=== PATIENT | female | born 1985 | race Caucasian/White ===

== ENCOUNTER 2019-05-01 17:30 | Emergency (ER) | payer OTHER, SELFPAY ==
[2019-05-01 17:45] VITALS: BP 120/65; PULSE 79; RESP 16; TEMP 36.6
--- NOTE | 2019-05-01 17:58 | ED.ALLEREA ---
HPI - Allergic Reaction General Chief complaint: Allergic Reaction Stated complaint: Light-headed/SOB Time Seen by Provider: 05/01/19 17:50 Source: patient Mode of arrival: ambulatory Limitations: no limitations History of Present Illness HPI narrative: Ida Ortega is a 33 yo female with a PMH of anxiety, GERD, states that she was driving after child's doctor appointment and suddenly began to feel dizzy and weak. States she worked out earlier today but had protein. Took some child Benadryl in the car, states she has a scratchy throat and feels like her lips are swollen. Unknown agent Related Data Home Medications Medication Instructions Recorded Confirmed amitriptyline 25 mg tablet 25 mg PO ONCE 04/22/19 Allergies Allergy/AdvReac Type Severity Reaction Status Date / Time Cephalosporins Allergy Mild Unknown Verified 04/22/19 09:24 imipramine Allergy Mild hives & Verified 04/22/19 09:24 throat closes shellfish derived Allergy Mild Hives / Verified 04/22/19 09:24 Red Face albuterol Allergy Unknown HIVES AND Verified 04/22/19 09:24 THROAT SWELLING cefuroxime Allergy Unknown NAUSEA/DIZZ Verified 04/22/19 09:24 INESS Sulfa (Sulfonamide Allergy Unknown Unknown Verified 04/22/19 09:24 Antibiotics) METOCLOPRAMIDE HCL Allergy Intermediate Hives / Uncoded 04/22/19 09:24 Red Face PROMETHAZINE HCL Allergy Intermediate Hives / Uncoded 04/22/19 09:24 Red Face Review of Systems Review of Systems: Narrative: CONSTITUTIONAL: Denies fever, chills, sweats. Weakness, feels mouth lips are swollen EYES: Denies visual changes, redness, discharge. ENT: Denies rhinorrhea, congestion, sore throat, otalgia. CARDIOVASCULAR: Denies chest pain, palpitations, edema. RESPIRATORY: Denies dyspnea, wheezing, cough GASTROINTESTINAL: Denies abdominal pain, nausea, vomiting, diarrhea. GENITOURINARY: Denies dysuria, hematuria, abnormal discharge SKIN: Denies rash or itching. MUSCULOSKELETAL: Denies acute back pain, joint pain, or myalgia. NEUROLOGIC: Denies numbness, or focal weakness. PSYCHIATRIC: Denies anxiety or depression. [facility] Family History Family History Grandparent Hypertension Cerebrovascular accident Family history of lung cancer Family history of heart disease in male family member before age 55 Social History Social History Smoking status: Former smoker Second hand tobacco smoke exposure: No Alcohol intake: never Comments At time of signature, I agree with nursing past medical, surgical, social and family history. There is no relevant family history pertinent to the presenting complaint. Exam Narrative: Exam Narrative: GENERAL: This is a well-nourished, well-developed patient, in moderate distress. HEAD: normocephalic, atraumatic. EYES: PERRL. Sclera clear/white. Vision is grossly intact. EARS: External ears normal, auditory canals clear and without drainage, TMs normal without perforation. Hearing grossly intact. NOSE: External nose normal with no obvious nasal discharge, nares without redness, no rhinorrhea. THROAT: Mucous membranes moist, posterior pharynx clear. NECK: Neck supple, non-tender without lymphadenopathy, masses or thyromegaly. CARDIOVASCULAR: Regular rate and rhythm without murmurs, gallops, or rubs. RESPIRATORY: Clear to auscultation. Breath sounds equal bilaterally. No wheezes, rales, or rhonchi. GASTROINTESTINAL: Abdomen soft, non-tender, nondistended. SKIN: warm, intact with no suspicious lesions or rash, good texture and turgor. NEURO: awake, alert, and oriented to person, place and time. There were no obvious focal neurologic abnormalities. Steady gait Neurologically intact EXTREMITIES: Normal range of motion. No edema. No calf tenderness. Negative Homans sign bilaterally. BACK: Nontender without deformity or crepitance. Course Cou
[2019-05-01 18:03] LABS: Glucose Point of Care 85 (65-105)
[2019-05-01] MEDS: predniSONE 20 MG TABLET 40 MG PO (18:03)
== END 2019-05-01 19:03 | disposition home or self-care (01) ==
PROVIDERS: Emergency Provider Nurse Practitioner; PCP Family Medicine
DX: R06.02 Shortness of breath (principal); R42 Dizziness and giddiness; R22.0 Localized swelling, mass and lump, head; T78.40XA Allergy, unspecified, initial encounter; Z87.891 Personal history of nicotine dependence
CPT/HCPCS: 81003; 82948; 99213; G0463; J7512

== ENCOUNTER 2019-09-10 13:36 | Outpatient (CLI) | payer OTHER, SELFPAY ==
[2019-09-10 14:05] LABS: Hematocrit 37.9 % (37.0-47.0); Hemoglobin 12.1 g/dL (12.0-15.0); Mean Corpuscular HGB Conc 31.9 g/dl (32-36); Mean Corpuscular Hemoglobin 30.3 pg (26-34); Mean Corpuscular Volume 94.8 fl (80-100); Mean Platelet Volume 9.5 fl (7.4-10.4); Platelet Count Result 237 k/mm3 (150-375); White Blood Count 5.3 K/mm3 (4.5-10.0)
[2019-09-10 14:19] LABS: Blood Urea Nitrogen 12 mg/dL (7-17); Calcium 9.3 mg/dL (8.4-10.2); Carbon Dioxide 29 mmol/L (22-30); Chloride 102 mmol/L (98-107); Estimated Glomerular Filt Rate > 60; Glucose 95 mg/dL (65-105); Potassium 4.4 mmol/L (3.4-5.0); Sodium 137 mmol/L (137-145)
[2019-09-10 14:32] LABS: Iron 37 ug/dL (37-170)
[2019-09-10 14:41] LABS: Percent Iron Saturation 10 % (20-50)
== END 2019-09-10 13:37 | disposition home or self-care (01) ==
PROVIDERS: PCP Family Medicine; Visit Provider Physician Assistant Medical
DX: E61.1 Iron deficiency (principal)
CPT/HCPCS: 36415; 80048; 83540; 83550; 85027

== ENCOUNTER 2021-09-01 09:41 | Emergency (ER) | payer MEDICAID, SELFPAY ==
[2021-09-01] VITALS (19 sets, daily range): BP systolic 95–140; BP diastolic 60–93; PULSE 78–96; RESP 12–29; O2SAT 95–100
--- NOTE | ~2021-09-01 | XR_ITS ---
EXAMINATION: XR chest 1V portable DATE: 09/01/2021 11:59 INDICATION: Shortness of breath. Chest tightness. TECHNIQUE: A single frontal view of the chest was obtained. COMPARISON: Chest 2 views 08/08/2018 FINDINGS: The chest demonstrates clear lungs without pneumonia, pleural effusion, or pneumothorax. Th e heart size is normal. IMPRESSION: 1. No acute cardiopulmonary disease. Reviewed, dictated and finalized at location A.
--- NOTE | 2021-09-01 10:03 | ED.DIZZY ---
HPI - Dizziness General Chief Complaint: Dizziness Stated Complaint: not feeling well UTI? Time Seen by Provider: 09/01/21 09:45 Source: patient Mode of arrival: ambulatory Limitations: no limitations History of Present Illness HPI Narrative: 35-year-old female with history of aplastic anemia presents today with complaints of not feeling well for 2 days. Patient endorses sore throat, chills, sweats, body aches, back pain, dizziness, shortness of breath, nausea, vomiting x1, more frequent urination. Patient unsure if she has a fever at home but has been taking ibuprofen 40 mg every 4-6 hours as needed for pain or fever. Patient denies cough, diarrhea. Related Data Home Medications Medication Instructions Recorded Confirmed amitriptyline 25 mg tablet 25 mg PO ONCE 04/22/19 Allergies Allergy/AdvReac Type Severity Reaction Status Date / Time Cephalosporins Allergy Mild Unknown Verified 09/07/19 17:07 imipramine Allergy Mild hives & Verified 09/07/19 17:07 throat closes shellfish derived Allergy Mild Hives / Verified 09/07/19 17:07 Red Face albuterol Allergy Unknown HIVES AND Verified 09/07/19 17:07 THROAT SWELLING cefuroxime Allergy Unknown NAUSEA/DIZZ Verified 09/07/19 17:07 INESS Sulfa (Sulfonamide Allergy Unknown Unknown Verified 09/07/19 17:07 Antibiotics) METOCLOPRAMIDE HCL Allergy Intermediate Hives / Uncoded 09/07/19 17:07 Red Face PROMETHAZINE HCL Allergy Intermediate Hives / Uncoded 09/07/19 17:07 Red Face Review of Systems Review of Systems: CONSTITUTIONAL: Unsure of fever. Endorses chills and sweats and weakness EYES: Denies visual changes, redness, or discharge. ENT: Congestion and sore throat. Denies rhinorrhea or otalgia. CARDIOVASCULAR: Denies chest pain, palpitations, or edema. RESPIRATORY: Shortness of breath. Denies dyspnea. GASTROINTESTINAL: Denies abdominal pain, nausea, vomiting, or diarrhea. GENITOURINARY: More frequent urination. Denies dysuria or hematuria. SKIN: Denies rash or itching. MUSCULOSKELETAL: Denies back pain, joint pain, or myalgia. NEUROLOGIC: Weakness. Denies headache. PSYCHIATRIC: Denies anxiety or depression. [facility] Family History Family History Grandparent Hypertension Cerebrovascular accident Family history of lung cancer Family history of heart disease in male family member before age 55 Social History Social History Smoking status: Former smoker Second hand tobacco smoke exposure: No Alcohol intake: never Exam Narrative: GENERAL: ill-appearing, well-nourished, and in no acute distress. HEAD: Normocephalic, atraumatic. EYES: PERRLA and EOMI. ENT: Nares clear, no rhinorrhea or epistaxis. Mucous membranes moist. Oropharynx without tonsillar hypertrophy exudate or other lesions. Bilateral TMs pearly charles nonbulging NECK: Supple. No adenopathy or masses. No carotid bruits or JVD CHEST: Clear to auscultation. No respiratory distress. No wheezes rales or rhonchi HEART: Regular rate and rhythm. No murmur heard. Normal peripheral pulses. ABDOMEN: Soft, nontender, nondistended, normal active bowel sounds. EXTREMITIES: Normal range of motion. No edema. SKIN: Warm, dry, no rash. NEURO: No focal deficits. Alert and oriented x3. PSYCH: Normal mood and affect. Course Course Emergency Course: Patient with minimal improvement after medications. Patient is aware of labs and x-ray. Patient aware of positive COVID status. Patient was concerned of anemia but her hemoglobin is 11.1 at current time. Patient instructed to isolate per CDC guidelines and return with any new or worsening symptoms. Vital Signs Vital signs: Vital Signs Respiratory Rate 23 H 09/01/21 09:47 Blood Pressure 126/75 09/01/21 09:47 Pulse Oximetry 98 09/01/21 09:47 Oxygen Delivery Room Air 09/01/21 09:47 Pulse R
[2021-09-01] MEDS: SODIUM CHLORIDE 0.9% IV 1,000 ML 999 ML IV CONT (10:20)
[2021-09-01 10:22] LABS: Basophils Percent Auto 0.2 % (0.2-1.2); Eosinophils Absolute Auto 0.1 K/mm3 (0-0.3); Eosinophils Percent Auto 2.5 % (0-4.4); Hematocrit 34.7 % (37.0-47.0); Hemoglobin 11.1 g/dL (12.0-15.0); Immature Granulocyte Absolute 0.01 K/mm3 (0.00-0.031); Immature Granulocyte Percent A 0.2 % (0-0.5); Lymphocytes Percent Auto 17.3 % (18.3-44.2); Mean Corpuscular Hemoglobin 28.8 pg (26-34); Mean Corpuscular Volume 90.1 fl (80-100); Mean Platelet Volume 9.1 fl (7.4-10.4); Monocytes Absolute Auto 0.5 K/mm3 (0.1-0.6); Monocytes Percent Auto 11.4 % (2.6-8.5); Neutrophils Absolute Auto 2.8 K/mm3 (1.3-6.7); Neutrophils Percent Auto 68.4 % (45.5-73.1); Platelet Count Result 246 k/mm3 (150-375); Red Blood Count 3.85 M/mm3 (4.2-5.4); Red Cell Distribution Width 14.6 % (11.5-14.5)
--- NOTE | 2021-09-01 10:22 | PC.NURSE ---
pt unable to provide urine sample at this time. pt declining straight catheter.
[2021-09-01 10:29] LABS: Alanine Aminotransferase 14 U/L (6-35); Albumin Level 4.2 g/dL (3.5-5.1); Alkaline Phosphatase 64 U/L (38-126); Anion Gap 7 mmol/L (8-16); Aspartate Amino Transferase 23 U/L (14-36); Bilirubin,Total 0.2 mg/dL (0.2-1.3); Blood Urea Nitrogen 14 mg/dL (7-17); Calcium 8.4 mg/dL (8.4-10.2); Carbon Dioxide 26 mmol/L (22-30); Chloride 105 mmol/L (98-107); Estimated CRCL calculation 97 ml/min; Estimated Glomerular Filt Rate > 60; Glucose 86 mg/dL (65-110); Potassium 3.6 mmol/L (3.4-5.0); Sodium 138 mmol/L (137-145)
[2021-09-01 10:40] LABS: INR 1.1; Prothrombin Time 13.5 Seconds (11.1-14.7)
[2021-09-01 10:40] LABS: Appearance Urine Clear (Clear); Bilirubin Urine Negative (Negative); Blood Urine Negative (Negative); Color Urine Yellow (Yellow); Glucose Urine UA Negative (Negative); Ketones Urine Negative (Negative); Leukocyte Esterase Ur Negative LEU/UL (Negative); Nitrate Urine Negative (Negative); Protein Urine Negative (Negative); Urobilinogen Urine 0.2 mg/dL (<2.0)
[2021-09-01 10:40] LABS: Lactic Acid Reflex 0.6 mmol/L (0.7-2.0)
[2021-09-01 10:41] LABS: Partial Thromboplastin Time 34.8 SECONDS (22.3-36.8)
[2021-09-01] MEDS: KETOROLAC 30 MG/ML VIAL (*BKC) IV PUSH (10:46)
[2021-09-01 10:48] LABS: Lipase 85 U/L (23-300)
[2021-09-01 11:13] LABS: Influenza A QL RT-PCR Negative (Negative); Influenza B QL RT-PCR Negative (Negative); SARS-CoV-2 RNA PCR Positive
[2021-09-01 11:15] LABS: Add Urine Microscopic? NO
[2021-09-01] MEDS: hydrOXYzine HCL 25 MG TABLET PO (11:42)
== END 2021-09-01 13:15 | disposition home or self-care (01) ==
PROVIDERS: Emergency Provider Nurse Practitioner Family; PCP Family Medicine
DX: U07.1 COVID-19 (principal); Z87.891 Personal history of nicotine dependence
CPT/HCPCS: 36415; 71045; 80053; 81003; 81025; 83605; 83690; 85025; 85610; 85730; 86850; 86900; 86901; 87502; 96361; 96374; 99284; A9270; C9803; J1885; J7030; U0003; U0005

== ENCOUNTER 2021-09-28 15:45 | Emergency (ER) | payer OTHER, SELFPAY ==
[2021-09-28 16:13] VITALS: BP 120/76; PULSE 72; RESP 16; TEMP 36.8; O2SAT 100
--- NOTE | 2021-09-28 17:09 | ED.SKABFB ---
HPI - Skin/Abscess/Foreign Bdy General Chief complaint: Skin/Abscess/Foreign Body Stated complaint: rash Time Seen by Provider: 09/28/21 17:09 Source: patient Mode of arrival: ambulatory Limitations: no limitations History of Present Illness HPI narrative: 35 yo F presents with itchy rash to started to L elbow, scabbed and has now spread to L antecubital, fingers and itches around ankles but doesn't see the rash. Symptoms for approx. 2 wks. Went to [place] approx. 3 wks ago. Pt and her son slept in same bed and he is c/o itching to back of legs. concerned for scabies. All systems reviewed and negative except as noted above. Related Data Home Medications Medication Instructions Recorded Confirmed epinephrine 0.3 mg/0.3 mL ea 09/28/21 injection, auto-injector Allergies Allergy/AdvReac Type Severity Reaction Status Date / Time Cephalosporins Allergy Mild Unknown Verified 09/07/19 17:07 imipramine Allergy Mild hives & Verified 09/07/19 17:07 throat closes shellfish derived Allergy Mild Hives / Verified 09/07/19 17:07 Red Face albuterol Allergy Unknown HIVES AND Verified 09/07/19 17:07 THROAT SWELLING cefuroxime Allergy Unknown NAUSEA/DIZZ Verified 09/07/19 17:07 INESS Sulfa (Sulfonamide Allergy Unknown Unknown Verified 09/07/19 17:07 Antibiotics) METOCLOPRAMIDE HCL Allergy Intermediate Hives / Uncoded 09/07/19 17:07 Red Face PROMETHAZINE HCL Allergy Intermediate Hives / Uncoded 09/07/19 17:07 Red Face Review of Systems Review of Systems: CONSTITUTIONAL: Denies fever, chills, or sweats. EYES: Denies visual changes, redness, or discharge. ENT: Denies rhinorrhea, congestion, sore throat, or otalgia. CARDIOVASCULAR: Denies chest pain, palpitations, or edema. RESPIRATORY: Denies cough or dyspnea. GASTROINTESTINAL: Denies abdominal pain, nausea, vomiting, or diarrhea. GENITOURINARY: Denies dysuria or hematuria. SKIN: Reports itchy rash to left AC, fingers and hands. MUSCULOSKELETAL: Denies back pain, joint pain, or myalgia. NEUROLOGIC: Denies headache, numbness, or weakness. PSYCHIATRIC: Denies anxiety or depression. All other systems reviewed are negative, except as documented in HPI. [facility] Family History Family History Grandparent Hypertension Cerebrovascular accident Family history of lung cancer Family history of heart disease in male family member before age 55 Social History Social History Smoking status: Former smoker Second hand tobacco smoke exposure: No Alcohol intake: never Comments At time of signature, agree with nursing past medical, surgical, social and family history. There is no relevant family history pertinent to the presenting complaint. Exam Narrative: GENERAL: This is a well-nourished, well-developed patient, in no apparent distress. HEAD: normocephalic, atraumatic. EYES: PERRL. Sclera clear/white. Vision is grossly intact. EARS: External ears normal NOSE: External nose normal NECK: Neck supple, non-tender without lymphadenopathy, masses or thyromegaly. CARDIOVASCULAR: Regular rate and rhythm without murmurs, gallops, or rubs. RESPIRATORY: Clear to auscultation. Breath sounds equal bilaterally. No wheezes, rales, or rhonchi. SKIN: warm, Dry, intact with no suspicious lesions. erythematous papular/vesicular rash to L AC, webbing of fingers. some area linear in appearance. NEURO: awake, alert, and oriented to person, place and time. There were no obvious focal neurologic abnormalities. EXTREMITIES: No joint tenderness, effusion, or edema noted. Course Course Level of Care: Express Care Visit Vital Signs Vital signs: Vital Signs Temperature 36.8 C 09/28/21 16:13 Pulse Rate 72 09/28/21 16:13 Respiratory Rate 16 09/28/21 16:13 Blood Pressure 120/76 09/28/21 16:13 Pulse Oximetry 100 09/28/21 16:13
== END 2021-09-28 17:24 | disposition home or self-care (01) ==
PROVIDERS: Emergency Provider Nurse Practitioner Family
DX: B86 Scabies (principal); Z87.891 Personal history of nicotine dependence
CPT/HCPCS: 99213; G0463

== ENCOUNTER 2021-11-15 15:36 | Outpatient (CLI) | payer OTHER, SELFPAY ==
--- NOTE | ~2021-11-15 | XR_ITS ---
EXAM: XR knee RT 3V DATE: 11/15/2021 16:08 HISTORY: FALL X 4 DAYS AGO. PAIN TO ANTERIOR RT KNEE . COMPARISON: None available. FINDINGS: Mildly decreased mineralization. No fracture or dislocation. No lytic or blastic lesion. M ild medial joint space narrowing. No erosion or periosteal change. Soft tissues within normal limits. Small volume knee joint fluid. IMPRESSION: No acute osseous finding in the right knee. Reviewed, dictated and finalized at location K.
--- NOTE | ~2021-11-15 | XR_ITS ---
EXAM: XR ankle RT min 3V DATE: 11/15/2021 16:10 HISTORY: FALL X 4 DAYS AGO AND TWISTED ANKLE. PAIN ANTERIOR/LATERAL . COMPARISON: None available. FINDINGS: Normal mineralization. No fracture or dislocation. No lytic or blastic lesion. Joint space s are maintained. No erosion or periosteal change. Soft tissues within normal limits. IMPRESSION: Normal right ankle radiograph findings. Reviewed, dictated and finalized at location K.
== END 2021-11-15 15:37 | disposition home or self-care (01) ==
PROVIDERS: PCP Family Medicine; Visit Provider Nurse Practitioner Family
DX: S99.911A Unspecified injury of right ankle, initial encounter (principal); M25.571 Pain in right ankle and joints of right foot; M25.561 Pain in right knee
CPT/HCPCS: 73562; 73610

== ENCOUNTER 2022-01-23 09:59 | Outpatient (CLI) | payer OTHER, SELFPAY ==
--- NOTE | ~2022-01-23 | XR_ITS ---
EXAMINATION: XR thoracic spine 2V DATE: 01/23/2022 10:25 INDICATION: Scoliosis. Bilateral rib pain. TECHNIQUE: 2 views of thoracic spine were obtained. COMPARISON: None. FINDINGS: There is 16 degrees dextroscoliosis of thoracic spine. Partially visualized in cervicothora cic levoscoliosis. Vertebral body heights are normal. There are endplate osteophytes at multiple leve ls in mid thoracic spine. Intervertebral disc heights are normal. IMPRESSION: 1. Mild thoracic spondylosis. 2. Scoliosis. Reviewed, dictated and finalized at location A.
--- NOTE | ~2022-01-23 | XR_ITS ---
EXAMINATION: XR lumbar spine 2-3V DATE: 01/23/2022 10:26 INDICATION: Scoliosis. TECHNIQUE: 3 views of lumbar spine were obtained. COMPARISON: None. FINDINGS: Bone alignment is normal. Vertebral body heights are normal. There is mildly decreased disc height at L4-L5. The facet joints are unremarkable. IMPRESSION: 1. Mild degenerative disc disease at L4-L5. Reviewed, dictated and finalized at location A.
--- NOTE | ~2022-01-23 | XR_ITS ---
EXAMINATION: XR_CERV2-3V_CR DATE: 01/23/2022 10:25 INDICATION: Migraine, unspecified, not intractable, without status migrainosus. TECHNIQUE: 3 views of cervical spine were obtained. COMPARISON: Cervical spine radiographs 11/02/2016 FINDINGS: There is 15 degrees levoscoliosis of cervicothoracic spine. Vertebral body heights are norm al. There is moderately decreased disc height at C3-C4 and C5-C6 and mildly decreased disc height at C6-C7. At C5-C6, there is severe left uncovertebral joint osteoarthritis. The facet joints are unrema rkable. There is mild central canal stenosis at C3-C4 and C5-C6. No prevertebral soft tissue swelling . IMPRESSION: 1. Moderate cervical spondylosis. 2. Cervicothoracic levoscoliosis. Reviewed, dictated and finalized at location A.
[2022-01-23 10:55] LABS: Anion Gap 11 mmol/L (8-16); Blood Urea Nitrogen 20 mg/dL (7-17); Calcium 8.7 mg/dL (8.4-10.2); Carbon Dioxide 25 mmol/L (22-30); Chloride 103 mmol/L (98-107); Estimated Glomerular Filt Rate 46; Glucose 86 mg/dL (65-110); Sodium 139 mmol/L (137-145)
== END 2022-01-23 10:00 | disposition home or self-care (01) ==
PROVIDERS: PCP Family Medicine; Visit Provider Nurse Practitioner Family
DX: M54.9 Dorsalgia, unspecified (principal); G43.909 Migraine, unspecified, not intractable, without status migrainosus; Z86.39 Personal history of other endocrine, nutritional and metabolic disease; M51.36 Other intervertebral disc degeneration, lumbar region; M47.894 Other spondylosis, thoracic region; M41.9 Scoliosis, unspecified; M47.892 Other spondylosis, cervical region
CPT/HCPCS: 36415; 72040; 72070; 72100; 80048; 83735

== ENCOUNTER 2022-04-11 09:02 | Outpatient (CLI) | payer OTHER, SELFPAY ==
[2022-04-11 09:50] LABS: Hematocrit 37.3 % (37.0-47.0); Hemoglobin 11.9 g/dL (12.0-15.0); Mean Corpuscular HGB Conc 31.9 g/dl (32-36); Mean Corpuscular Volume 87.8 fl (80-100); Mean Platelet Volume 9.6 fl (7.4-10.4); Platelet Count Result 245 k/mm3 (150-375); Red Blood Count 4.25 M/mm3 (4.2-5.4); Red Cell Distribution Width 14.6 % (11.5-14.5); White Blood Count 4.6 K/mm3 (4.5-10.0)
[2022-04-11 10:02] LABS: Alanine Aminotransferase 15 U/L (6-35); Albumin Level 4.5 g/dL (3.5-5.1); Alkaline Phosphatase 59 U/L (38-126); Anion Gap 8 mmol/L (8-16); Aspartate Amino Transferase 20 U/L (14-36); Bilirubin,Total 0.4 mg/dL (0.2-1.3); Blood Urea Nitrogen 14 mg/dL (7-17); Carbon Dioxide 25 mmol/L (22-30); Chloride 106 mmol/L (98-107); Cholesterol 171 mg/dL (0-200); Estimated Glomerular Filt Rate > 60; Glucose 83 mg/dL (65-110); HDL Direct 51 mg/dL; Potassium 4.1 mmol/L (3.4-5.0); Sodium 139 mmol/L (137-145); Triglycerides 75 mg/dL (<150)
[2022-04-11 10:05] LABS: Iron 35 ug/dL (37-170)
[2022-04-11 10:13] LABS: LDL Cholesterol Direct 89 mg/dL
[2022-04-11 10:16] LABS: Percent Iron Saturation 8 % (20-50)
[2022-04-11 10:40] LABS: Ferritin 7.14 ng/mL (6.24-137)
[2022-04-15 10:53] LABS: Lead, Blood <1.0 mcg/dL (<3.5)
[2022-04-19 15:28] LABS: Collection Sample Venous
== END 2022-04-11 09:03 | disposition home or self-care (01) ==
LOC: ANHLAB 09:05
PROVIDERS: PCP Family Medicine; Referring Provider Nurse Practitioner Family; Visit Provider Nurse Practitioner Family
DX: E61.1 Iron deficiency (principal); Z83.2 Family history of diseases of the blood and blood-forming organs and certain disorders involving the immune mechanism; N28.9 Disorder of kidney and ureter, unspecified; Z13.220 Encounter for screening for lipoid disorders; D64.9 Anemia, unspecified; Z77.011 Contact with and (suspected) exposure to lead
CPT/HCPCS: 36415; 80048; 80061; 80076; 82607; 82728; 83540; 83550; 83655; 84443; 85027

== ENCOUNTER 2022-04-16 17:52 | Emergency (ER) | payer OTHER, SELFPAY ==
[2022-04-16 18:10] VITALS: BP 118/72; PULSE 98; RESP 16; TEMP 36.7; O2SAT 99
--- NOTE | 2022-04-16 18:37 | ED.FEMALEGU ---
HPI - Female Genitourinary General Chief complaint: Urogenital-Female Stated complaint: Possible UTI,Sore Throat,Cough Time Seen by Provider: 04/16/22 18:21 Source: patient Mode of arrival: ambulatory Limitations: no limitations History of Present Illness HPI Narrative: Patient presents today complaining of a 2.5 week history of dysuria, pelvic pain with a 10 day history of malodorous white discharge. She has tried cranberry pills, boric acid, tea tree oral, vaginal so without relief. States she does still have occasional contact with a boyfriend who has given her chlamydia several times in the past and believes she may have it again. She also has had a sore throat for the last couple of days and believes it may be related. Denies congestion, cough, fever. Related Data Allergies Allergy/AdvReac Type Severity Reaction Status Date / Time imipramine AdvReac Severe hives & Verified 04/16/22 18:38 throat closes venom-wasp AdvReac Severe Anaphylactic Verified 04/16/22 18:38 Shock albuterol AdvReac Intermediate HIVES AND Verified 04/16/22 18:38 THROAT SWELLING cefuroxime AdvReac Intermediate NAUSEA/DIZZ Verified 04/16/22 18:38 INESS shellfish derived AdvReac Intermediate Hives / Verified 04/16/22 18:38 Red Face Sulfa (Sulfonamide AdvReac Intermediate Hives Verified 04/16/22 18:38 Antibiotics) METOCLOPRAMIDE HCL AdvReac Intermediate Hives / Uncoded 04/16/22 18:38 Red Face PROMETHAZINE HCL AdvReac Intermediate Hives / Uncoded 04/16/22 18:38 Red Face Review of Systems Review of Systems: CONSTITUTIONAL: Denies body aches, fever, chills, or sweats. EYES: Denies visual changes, redness, or discharge. ENT: Denies rhinorrhea, congestion, or otalgia.+ sore throat CARDIOVASCULAR: Denies chest pain, palpitations, or edema. RESPIRATORY: Denies cough or dyspnea. GASTROINTESTINAL: Denies abdominal pain, nausea, vomiting, or diarrhea. GENITOURINARY: + dysuria, pelvic pain, vaginal discharge. SKIN: Denies rash, itching, or wounds. MUSCULOSKELETAL: Denies back pain, joint pain, or myalgia. NEUROLOGIC: Denies headache, numbness, tingling, or weakness. PSYCH: Denies depression or anxiety. 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 Please see nursing chart for further information. There is no relevant family history pertinent to the presenting complaint Exam Narrative: GENERAL: Well-appearing, well-nourished, and in no acute distress. HEAD: Normocephalic, atraumatic. EYES: EOMI. No redness or drainage. Conjunctivae normal. ENT: Mucous membranes pink and moist. Nares clear. No rhinorrhea. TMs normal bilaterally. Throat normal. Uvula midline. NECK: Normal AROM. Supple. No lymphadenopathy. CHEST: No respiratory distress. Clear to auscultation. HEART: Regular rate and rhythm. No murmur appreciated. Normal peripheral pulses. ABDOMEN: Soft, nontender, nondistended, normal active kassidy
[2022-04-16] MEDS: cefTRIAXone 500 MG, LIDOCAINE HCL 1% LOCAL INJ 1 ML IM (18:44)
== END 2022-04-16 19:05 | disposition home or self-care (01) ==
PROVIDERS: Emergency Provider Nurse Practitioner; PCP Family Medicine
DX: N89.8 Other specified noninflammatory disorders of vagina (principal); Z87.891 Personal history of nicotine dependence
CPT/HCPCS: 81003; 87086; 87088; 87491; 87591; 87661; 87808; 96372; 99214; G0463; J0696

== ENCOUNTER 2022-04-24 11:33 | Emergency (ER) | payer OTHER, SELFPAY ==
--- NOTE | 2022-04-24 11:48 | ED.URI ---
HPI - URI/Sore Throat General Chief Complaint: Upper Respiratory Infection Stated Complaint: cold symptoms,bilateral ear pain Time Seen by Provider: 04/24/22 11:49 Source: patient, RN notes reviewed and old records reviewed Mode of arrival: ambulatory Limitations: no limitations History of Present Illness HPI Narrative: 36 year old female accompanied by son with complaints of bilateral ear pain, cough with some headache, fatigue, body aches and both ears feel clogged. and sinus drainage for the past 5 days, fever 99.8 F, home COVID test reported to be negative. Patient reports that she has been taking Ibuprofen for her symptoms, highest temperature noted to be 99.8F. Patient report she has had COVID vaccinations and also flu shot. MD elicited complaint: cough and sore throat Onset (ago): day(s) (5-6 days) Treatments prior to arrival: ibuprofen Related Data Home Medications Medication Instructions Recorded Confirmed escitalopram oxalate 5 mg tablet 5 mg PO DAILY 04/24/22 04/24/22 Allergies Allergy/AdvReac Type Severity Reaction Status Date / Time imipramine AdvReac Severe hives & Verified 04/24/22 11:41 throat closes venom-wasp AdvReac Severe Anaphylactic Verified 04/24/22 11:41 Shock albuterol AdvReac Intermediate HIVES AND Verified 04/24/22 11:41 THROAT SWELLING cefuroxime AdvReac Intermediate NAUSEA/DIZZ Verified 04/24/22 11:41 INESS shellfish derived AdvReac Intermediate Hives / Verified 04/24/22 11:41 Red Face Sulfa (Sulfonamide AdvReac Intermediate Hives Verified 04/24/22 11:41 Antibiotics) METOCLOPRAMIDE HCL AdvReac Intermediate Hives / Uncoded 04/24/22 11:41 Red Face PROMETHAZINE HCL AdvReac Intermediate Hives / Uncoded 04/24/22 11:41 Red Face Review of Systems Review of Systems: CONSTITUTIONAL: Reports malaise, chills, sweats, or fever. EYES: Denies visual changes, redness, or discharge. ENT: Reports rhinorrhea, congestion, sinus pain, otalgia and sore throat. CARDIOVASCULAR: Denies chest pain, palpitations, or edema. RESPIRATORY: Reports cough.? Denies dyspnea. GASTROINTESTINAL: Denies abdominal pain, nausea, vomiting, diarrhea SKIN: Denies rash or itching. MUSCULOSKELETAL: Reports myalgia. NEUROLOGIC: Reports headache. All systems reviewed & are unremarkable except as noted in HPI and below PMFSH Past Medical History Medical History BMI 24.0-24.9, adult BMI 25.0-25.9,adult Family History Family History Grandparent Hypertension Cerebrovascular accident Family history of lung cancer Family history of heart disease in male family member before age 55 Father Hyperlipidemia Mother Heart disease Hypertension Sibling Heart disease Social History Social History Smoking status: Former smoker Second hand tobacco smoke exposure: No Alcohol intake: never Substance use: never Substance use type: does not use Living arrangements: with family Occupation/Education: 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 There is no relevant family history pertinent to the presenting complaint Exam Narrative: GENERAL: Well-appearing, well-nourished, and in no acute distress. HEAD: Normocephalic EYES: PERRLA, conjunctivae clear ENT: Nares clear, turbinates edematous and erythematous, clear discharge. Mucous membranes moist. TM pearly charles with dull light reflex bilaterally; no tragal tenderness. Oropharynx erythematous without lesions. Tonsils not enlarged and without exudate, no drooling, no hoarseness, no trismus, uvula midline.SAO2 98% on room air NECK: Supple. No lym
[2022-04-24 11:56] VITALS: BP 105/69; PULSE 96; RESP 18; TEMP 36.3; O2SAT 98
== END 2022-04-24 12:56 | disposition home or self-care (01) ==
PROVIDERS: Emergency Provider Registered Nurse; PCP Family Medicine
DX: J40 Bronchitis, not specified as acute or chronic (principal); J32.9 Chronic sinusitis, unspecified; Z87.891 Personal history of nicotine dependence
CPT/HCPCS: 87804; 99213; G0463

== ENCOUNTER 2022-05-22 17:51 | Emergency (ER) | payer OTHER, SELFPAY ==
[2022-05-22 18:21] VITALS: BP 114/68; PULSE 101; RESP 16; TEMP 36.8; O2SAT 100
--- NOTE | 2022-05-22 19:03 | ED.URI ---
HPI - URI/Sore Throat General Chief Complaint: Upper Respiratory Infection Stated Complaint: congestion,cough Time Seen by Provider: 05/22/22 19:03 Source: patient Mode of arrival: ambulatory Limitations: no limitations History of Present Illness HPI Narrative: 36 year old female presents to [facility] care with long list of various complaints this evening including concern for post exposure prophylaxis for possible HIV exposure from condom breaking about 12 hours ago.Patient reports continued cough with green mucous, body aches, sore throat, nausea, fatigue, knee pain, back pain, headache reports migraine since Saturday Patient states that maybe her iron level is low has had problems with anemia in past and is fatigued. Patient reports that she has been taking Ibuprofen.Patient was treated at end of March for bronchitis with antibiotic steroids and inhaler given. MD elicited complaint: cough, sore throat and other (numerous complaints) Pertinent past history: other (bronchitis) Onset (ago): week(s) (3) Pain scale (0-10): 9 Description of mucous: green Able to tolerate fluids by mouth: Yes Associated symptoms: myalgias, headache, rhinorrhea, nasal congestion, sore throat, cough and nausea Treatments prior to arrival: ibuprofen and other (inhaler and had antibiotic and steroid) Related Data Home Medications Medication Instructions Recorded Confirmed epinephrine 0.3 mg/0.3 mL 0.3 mg IM ONCE PRN Anaphylaxis 05/22/22 05/22/22 injection, auto-injector Allergies Allergy/AdvReac Type Severity Reaction Status Date / Time imipramine AdvReac Severe hives & Verified 05/22/22 18:10 throat closes venom-wasp AdvReac Severe Anaphylactic Verified 05/22/22 18:10 Shock albuterol AdvReac Intermediate HIVES AND Verified 05/22/22 18:10 THROAT SWELLING cefuroxime AdvReac Intermediate NAUSEA/DIZZ Verified 05/22/22 18:10 INESS shellfish derived AdvReac Intermediate Hives / Verified 05/22/22 18:10 Red Face Sulfa (Sulfonamide AdvReac Mild Hives Verified 05/22/22 18:10 Antibiotics) METOCLOPRAMIDE HCL AdvReac Intermediate Hives / Uncoded 05/22/22 18:10 Red Face PROMETHAZINE HCL AdvReac Intermediate Hives / Uncoded 05/22/22 18:10 Red Face Review of Systems Review of Systems: CONSTITUTIONAL: Denies fever, chills, or sweats. EYES: Denies visual changes, redness, or discharge. ENT: reports rhinorrhea, congestion, sore throat, no otalgia. CARDIOVASCULAR: Denies chest pain, palpitations, or edema. RESPIRATORY: Reports productive cough, no dyspnea. GASTROINTESTINAL: Denies abdominal pain,states nausea, no vomiting, or diarrhea. GENITOURINARY: Denies dysuria or hematuria. SKIN: Denies rash or itching. MUSCULOSKELETAL: reports back pain, knee pain, and myalgia. NEUROLOGIC: reports headache,no numbness, or weakness.states fatigue PSYCHIATRIC: Reports anxiety or depression. states concern over possible HIV exposure All systems reviewed & are unremarkable except as noted in HPI and below PMFSH Past Medical History Medical History Anemia Anxiety and depression BMI 24.0-24.9, adult BMI 25.0-25.9,adult Fracture of fifth metacarpal bone Surgical History Surgical History (Updated 05/23/22 @ 11:12 by Arianna Urias NP) H/O breast augmentation Family History Family History Grandparent Hypertension Cerebrovascular accident Family history of lung cancer Family history of heart disease in male family member before age 55 Father Hyperlipidemia Mother Heart disease Hypertension Sibling Heart disease Social History Social History Smoking status: Former smoker Second hand tobacco smoke exposure: No Alcohol intake: never Substance use: never Substance use type: does not use Living arrangements: with family Occup
== END 2022-05-22 19:50 | disposition home or self-care (01) ==
PROVIDERS: Emergency Provider Registered Nurse; PCP Family Medicine
DX: J06.9 Acute upper respiratory infection, unspecified (principal); Z87.891 Personal history of nicotine dependence; Z20.828 Contact with and (suspected) exposure to other viral communicable diseases; Z20.822 Contact with and (suspected) exposure to COVID-19
CPT/HCPCS: 87081; 87426; 87804; 87880; 99213; C9803; G0463

== ENCOUNTER 2022-06-08 23:21 | Emergency (ER) | payer OTHER, SELFPAY ==
[2022-06-08 23:20] VITALS: BP 130/85; PULSE 97; RESP 13; TEMP 36.8; O2SAT 100
[2022-06-08] MEDS: ONDANSETRON INJ 4 MG/2 ML VIAL IV PUSH (23:37)
[2022-06-08] MEDS: SODIUM CHLORIDE 0.9% IV 1,000 ML 999 ML IV CONT (23:47)
[2022-06-08] MEDS: methylPREDNISolone SOD SUCC 125 MG VIAL IV PUSH (23:47)
[2022-06-08] MEDS: FAMOTIDINE 20 MG/2 ML VIAL IV PUSH (23:47)
--- NOTE | 2022-06-08 23:49 | ED.ALLEREA ---
HPI - Allergic Reaction General Chief complaint: Allergic Reaction <KALPANA Green Last Filed: 06/09/22 03:23> Stated complaint: allergic rx <KALPANA Geren Last Filed: 06/09/22 03:23> Source: patient, EMS and old records reviewed <KALPANA Green Last Filed: 06/09/22 03:23> Mode of arrival: EMS <KALPANA Green Last Filed: 06/09/22 03:23> Limitations: no limitations <KALPANA Green Last Filed: 06/09/22 03:23> History of Present Illness HPI narrative: Patient is a 36 y/o female who presents to the ED via EMS with c/o allergic reaction. Patient reports she patient was receiving a massage from her mother artemio and did not realize that the massage oil they were using had lavender in it. Patient has an allergy to lavender. She began feeling her lips, throat, tongue swelling. EMS was called. Patient reports she does have several other allergies and has had anaphylaxis before. She does have an EpiPen but did not have it with her. EMS administered 0.5 IM epi as well as Benadryl. Patient reports swelling has improved by the time of my evaluation. She does complain of nausea and lightheadedness currently. She does appear anxious. She denies any trouble breathing, trouble swallowing, rash or itching, vomiting, abdominal pain. <KALPANA Green Last Filed: 06/09/22 03:23> Related Data Home medications: Home Medications Medication Instructions Recorded Confirmed epinephrine 0.3 mg/0.3 mL 0.3 mg IM ONCE PRN Anaphylaxis 05/22/22 05/22/22 injection, auto-injector <KALPANA Green Last Filed: 06/09/22 03:23> Allergies/adverse reactions: Allergies Allergy/AdvReac Type Severity Reaction Status Date / Time imipramine AdvReac Severe hives & Verified 05/22/22 18:10 throat closes venom-wasp AdvReac Severe Anaphylactic Verified 05/22/22 18:10 Shock albuterol AdvReac Intermediate HIVES AND Verified 05/22/22 18:10 THROAT SWELLING cefuroxime AdvReac Intermediate NAUSEA/DIZZ Verified 05/22/22 18:10 INESS shellfish derived AdvReac Intermediate Hives / Verified 05/22/22 18:10 Red Face Sulfa (Sulfonamide AdvReac Mild Hives Verified 05/22/22 18:10 Antibiotics) lavender Allergy Severe angioedema Uncoded 06/09/22 01:49 METOCLOPRAMIDE HCL AdvReac Intermediate Hives / Uncoded 05/22/22 18:10 Red Face PROMETHAZINE HCL AdvReac Intermediate Hives / Uncoded 05/22/22 18:10 Red Face <Nina Villagomez PA-C - Last Filed: 06/09/22 03:23> Review of Systems Review of Systems: CONSTITUTIONAL: Denies fever, chills, or sweats. EYES: Denies visual changes, redness, or discharge. ENT: See HPI. CARDIOVASCULAR: Denies chest pain, palpitations, or edema. RESPIRATORY: Denies cough or dyspnea. GASTROINTESTINAL: See HPI. GENITOURINARY: Denies dysuria or hematuria. SKIN: Denies rash or itching. PSYCHIATRIC: See HPI. <Nina Villagomez PA-C - Last Filed: 06/09/22 03:23> All systems reviewed & are unremarkable except as noted in HPI and below <Nina Villagomez PA-C - Last Filed: 06/09/22 03:23> PMFSH Past Medical History Medical History: Medical History Anemia Anxiety and depression BMI 24.0-24.9, adult BMI 25.0-25.9,adult Fracture of fifth metacarpal bone <Nina Villagomez PA-C - Last Filed: 06/09/22 03:23> Surgical History Surgical History: Surgical History H/O breast augmentation <Nina Villagomez PA-C - Last Filed: 06/09/22 03:23> Family History Family History: Family History Grandparent Hypertension Cerebrovascular accident Family history of lung cancer Family history of heart disease in male family member before age 55 Father H
[2022-06-09] VITALS: BP 136/85; PULSE 95; RESP 17; O2SAT 100
--- NOTE | 2022-06-09 | ECG_ITS ---
Measurements Intervals [place] Rate: 92 P: 61 VT: 174 QRS: 27 QRSD: 87 T: 49 QT: 373 QTc: 462 Interpretive Statements SINUS RHYTHM DELAYED PRECORDIAL R/S TRANSITION BORDERLINE ST-T WAVE ABNORMALITY- ANTEROLAT/INF LEADS BASELINE ARTIFACT- V5 BORDERLINE ECG COMPARED TO ECG 08/10/2018 03:51:05 SINUS RHYTHM NOW PRESENT Electronically Signed On 06-09-2022 8:09:14 CDT by Hans Owens D.O.
[2022-06-09 00:51] LABS: Basophils Percent Auto 0.3 % (0.2-1.2); Eosinophils Absolute Auto 0.1 K/mm3 (0-0.3); Eosinophils Percent Auto 1.2 % (0-4.4); Hematocrit 32.4 % (37.0-47.0); Immature Granulocyte Absolute 0.05 K/mm3 (0.00-0.031); Immature Granulocyte Percent A 0.5 % (0-0.5); Lymphocytes Absolute Auto 2.54 K/mm3 (0.9-3.2); Lymphocytes Percent Auto 23.2 % (18.3-44.2); Mean Corpuscular HGB Conc 30.9 g/dl (32-36); Mean Corpuscular Hemoglobin 26.5 pg (26-34); Mean Corpuscular Volume 85.7 fl (80-100); Mean Platelet Volume 9.2 fl (7.4-10.4); Monocytes Absolute Auto 0.7 K/mm3 (0.1-0.6); Monocytes Percent Auto 6.3 % (2.6-8.5); Neutrophils Absolute Auto 7.5 K/mm3 (1.3-6.7); Neutrophils Percent Auto 68.5 % (45.5-73.1); Platelet Count Result 301 k/mm3 (150-375); Red Blood Count 3.78 M/mm3 (4.2-5.4); Red Cell Distribution Width 16.4 % (11.5-14.5)
[2022-06-09 01:20] LABS: Ethanol < 10 mg/dL (<10)
[2022-06-09 01:27] LABS: Alanine Aminotransferase 20 U/L (6-35); Albumin Level 4.1 g/dL (3.5-5.1); Alkaline Phosphatase 61 U/L (38-126); Anion Gap 7 mmol/L (8-16); Aspartate Amino Transferase 27 U/L (14-36); Bilirubin,Total 0.4 mg/dL (0.2-1.3); Blood Urea Nitrogen 17 mg/dL (7-17); Calcium 8.7 mg/dL (8.4-10.2); Carbon Dioxide 25 mmol/L (22-30); Chloride 108 mmol/L (98-107); Estimated CRCL calculation 100 ml/min; Estimated Glomerular Filt Rate > 60; Glucose 135 mg/dL (65-110); Potassium 3.4 mmol/L (3.4-5.0); Sodium 140 mmol/L (137-145)
[2022-06-09 01:37] LABS: Troponin I < 0.012 ng/mL (0.000-0.034)
[2022-06-09 02:42] VITALS: BP 162/85; PULSE 92; RESP 17; O2SAT 98
[2022-06-09 05:16] VITALS: BP 124/80; PULSE 80; RESP 16; O2SAT 100
== END 2022-06-09 05:16 | disposition home or self-care (01) ==
PROVIDERS: Emergency Provider Physician Assistant; PCP Family Medicine
DX: T78.2XXA Anaphylactic shock, unspecified, initial encounter (principal); D64.9 Anemia, unspecified; Z87.891 Personal history of nicotine dependence
CPT/HCPCS: 36415; 80053; 80307; 84484; 85025; 93005; 96361; 96374; 96375; 99284; J0171; J2405; J2930; J7030

== ENCOUNTER 2022-07-17 12:42 | Emergency (ER) | payer OTHER, SELFPAY ==
--- NOTE | 2022-07-17 12:50 | ED.EYEPROB ---
HPI - Eye Problem General Chief complaint: Eye Problems Stated complaint: bilateral eye irritation Time Seen by Provider: 07/17/22 12:50 Source: patient Mode of arrival: ambulatory Limitations: no limitations History of Present Illness HPI Narrative: Patient is a 36-year-old female that presents with bilateral eye burning and irritation for a week. Patient denies any discharge or matting in the morning but states they are watery. Patient has been taking [id number] allergy medication but has not used any eyedrops. Denies any congestion, sore throat, ear pain, fever, chills, cough and changes in vision. Does report seasonal allergies. Related Data Home Medications Medication Instructions Recorded Confirmed epinephrine 0.3 mg/0.3 mL 0.3 mg IM ONCE PRN Anaphylaxis 05/22/22 07/17/22 injection, auto-injector raltegravir 400 mg tablet 400 mg PO BID 06/22/22 07/17/22 (Isentress) Allergies Allergy/AdvReac Type Severity Reaction Status Date / Time imipramine AdvReac Severe hives & Verified 07/17/22 13:20 throat closes venom-wasp AdvReac Severe Anaphylactic Verified 07/17/22 13:20 Shock albuterol AdvReac Intermediate HIVES AND Verified 07/17/22 13:20 THROAT SWELLING cefuroxime AdvReac Intermediate NAUSEA/DIZZ Verified 07/17/22 13:20 INESS shellfish derived AdvReac Intermediate Hives / Verified 07/17/22 13:20 Red Face Sulfa (Sulfonamide AdvReac Mild Hives Verified 07/17/22 13:20 Antibiotics) lavender Allergy Severe angioedema Uncoded 07/17/22 13:20 METOCLOPRAMIDE HCL AdvReac Intermediate Hives / Uncoded 07/17/22 13:20 Red Face PROMETHAZINE HCL AdvReac Intermediate Hives / Uncoded 07/17/22 13:20 Red Face Review of Systems Review of Systems: All systems reviewed & are unremarkable except as noted in HPI and below Constitutional: Constitutional: Denies body ache(s), Denies fever(s), Denies headache(s), Denies malaise and Denies weakness Eyes: Eyes: Denies blurry vision, Reports eye discharge, Reports irritation, Reports itchy eyes, Denies loss of vision and Reports eye pain ENT: Denies otalgia, Denies headache(s), Denies nasal discharge, Denies sinus pain and Denies sore throat Cardiovascular: Cardiovascular: Denies chest pain, Denies irregular heart rhythm and Denies dyspnea Respiratory: Respiratory: Denies dyspnea Gastrointestinal: Gastrointestinal: Denies abdominal pain, Denies diarrhea, Denies nausea and Denies vomiting Musculoskeletal: Musculoskeletal: Denies back pain, Denies myalgias and Denies arthralgias Integumentary/Breasts: Skin/Breast: Denies pruritus and Denies rash Neurologic: Denies headache(s), Denies loss of vision and Denies weakness Psychiatric: Psychiatric: Reports no additional psychiatric complaints Allergic/Immunologic: Allergic/Immunologic: Reports itchy eyes PMFSH Past Medical History Medical History Anemia Anxiety and depression BMI 24.0-24.9, adult BMI 25.0-25.9,adult Fracture of fifth metacarpal bone Surgical History Surgical History H/O breast augmentation Family History Family History Grandparent Hypertension Cerebrovascular accident Family history of lung cancer Family history of heart disease in male family member before age 55 Father Hyperlipidemia Mother Heart disease Hypertension Sibling Heart disease Social History Social History Smoking status: Former smoker Second hand tobacco smoke exposure: No Alcohol intake: never Substance use: never Substance use type: does not use Living arrangements: with family Occupation/Education: student 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
[2022-07-17 13:10] VITALS: BP 127/79; PULSE 97; RESP 18; TEMP 37.1; O2SAT 98
== END 2022-07-17 14:16 | disposition home or self-care (01) ==
PROVIDERS: Emergency Provider Nurse Practitioner Family; PCP Family Medicine
DX: H57.13 Ocular pain, bilateral (principal); Z87.891 Personal history of nicotine dependence
CPT/HCPCS: 99211; G0463

== ENCOUNTER 2022-07-20 11:24 | Emergency (ER) | payer OTHER, SELFPAY ==
--- NOTE | ~2022-07-20 | CT_ITS ---
EXAMINATION: CT brain wo con DATE: 07/20/2022 17:32 INDICATION: Headache. Lightheadedness. TECHNIQUE: Computed tomography (CT) of the head was performed without intravenous contrast. The mA wa s adjusted according to patient size. Iterative reconstruction technique was employed. The dose-lengt h product was 605.33 mGy-cm. COMPARISON: None FINDINGS: There is no intracranial hemorrhage, acute infarction, or abnormal intracranial mass lesion . The ventricles are normal in size. The orbits are normal. The paranasal sinuses are clear. The mast oid air cells are normal. IMPRESSION: 1. Normal brain. Reviewed, dictated and finalized at location E. IMPRESSION: 1. Normal brain.
--- NOTE | ~2022-07-20 | XR_ITS ---
EXAMINATION: XR chest 1V portable DATE: 07/20/2022 17:26 INDICATION: Weakness. TECHNIQUE: A single frontal view of the chest was obtained on 2 radiographs. COMPARISON: Chest view 09/01/2021 FINDINGS: The chest demonstrates clear lungs without pneumonia, pleural effusion, or pneumothorax. Th e heart size is normal. IMPRESSION: 1. No acute cardiopulmonary disease. Reviewed, dictated and finalized at location E.
[2022-07-20 11:47] VITALS: BP 123/97; PULSE 103; RESP 20; TEMP 36.6; O2SAT 100
[2022-07-20 11:59] LABS: Basophils Percent Auto 0.2 % (0.2-1.2); Eosinophils Absolute Auto 0.2 K/mm3 (0-0.3); Eosinophils Percent Auto 2.7 % (0-4.4); Hematocrit 32.7 % (37.0-47.0); Hemoglobin 9.9 g/dL (12.0-15.0); Lymphocytes Absolute Auto 1.54 K/mm3 (0.9-3.2); Lymphocytes Percent Auto 26.1 % (18.3-44.2); Mean Corpuscular HGB Conc 30.3 g/dl (32-36); Mean Corpuscular Hemoglobin 26.1 pg (26-34); Mean Corpuscular Volume 86.3 fl (80-100); Mean Platelet Volume 9.4 fl (7.4-10.4); Monocytes Absolute Auto 0.5 K/mm3 (0.1-0.6); Monocytes Percent Auto 8.1 % (2.6-8.5); Neutrophils Absolute Auto 3.7 K/mm3 (1.3-6.7); Neutrophils Percent Auto 62.9 % (45.5-73.1); Platelet Count Result 284 k/mm3 (150-375); Red Blood Count 3.79 M/mm3 (4.2-5.4); Red Cell Distribution Width 15.2 % (11.5-14.5); White Blood Count 5.9 K/mm3 (4.5-10.0)
[2022-07-20 12:09] LABS: Alanine Aminotransferase 17 U/L (6-35); Albumin Level 4.2 g/dL (3.5-5.1); Alkaline Phosphatase 48 U/L (38-126); Anion Gap 6 mmol/L (8-16); Aspartate Amino Transferase 20 U/L (14-36); Bilirubin,Total 0.4 mg/dL (0.2-1.3); Blood Urea Nitrogen 20 mg/dL (7-17); Calcium 8.8 mg/dL (8.4-10.2); Carbon Dioxide 27 mmol/L (22-30); Chloride 104 mmol/L (98-107); Estimated CRCL calculation 88 ml/min; Estimated Glomerular Filt Rate > 60; Glucose 86 mg/dL (65-110); Potassium 4.1 mmol/L (3.4-5.0); Sodium 137 mmol/L (137-145)
[2022-07-20 12:14] LABS: Appearance Urine Clear (Clear); Bilirubin Urine Negative (Negative); Blood Urine Negative (Negative); Color Urine Yellow (Yellow); Glucose Urine UA Negative (Negative); Ketones Urine Negative (Negative); Leukocyte Esterase Ur Negative LEU/UL (Negative); Nitrate Urine Negative (Negative); Protein Urine Negative (Negative); Urobilinogen Urine 0.2 mg/dL (<2.0); pH Urine 6.5 (5.0-9.0)
[2022-07-20 12:28] LABS: Add Urine Microscopic? NO
[2022-07-20 15:52] VITALS: BP 119/70; PULSE 97; TEMP 36.5; O2SAT 100
--- NOTE | 2022-07-20 17:14 | ECG_ITS ---
Measurements Intervals [place] Rate: 90 P: 46 VT: 156 QRS: 11 QRSD: 84 T: 27 QT: 347 QTc: 426 Interpretive Statements SINUS RHYTHM NONSPECIFIC ST AND T-WAVE ABNORMALITY COMPARED TO ECG 06/09/2022 00:15:18 NO SIGNIFICANT CHANGES Electronically Signed On 07-21-2022 12:06:37 CDT by Shiraz Carrasquillo M.D.
--- NOTE | 2022-07-20 17:18 | ED.RECABL ---
HPI - Recheck/Abnormal Lab/Rx General Chief Complaint: Recheck/Abnormal Lab/Rx <Samra Norris PA-C - Last Filed: 07/20/22 19:16> Stated Complaint: Generalized fatigue hx of anemia <Samra Norris PA-C - Last Filed: 07/20/22 19:16> Time Seen by Provider: 07/20/22 16:54 <Samra Norris PA-C - Last Filed: 07/20/22 19:16> History of Present Illness HPI narrative: 36 y/o F, LMP 2 weeks ago, with a history of seizures, GERD, anemia and reports for evaluation of generalized fatigue, lightheadedness and weakness for the past week. Patient reports this is normally how she presents prior to her hemoglobin falling. She is also reporting a headache behind both of her eyes for the past week, phonophobia and photophobia. Patient reports a history of anemia needing blood transfusions. She currently takes iron supplements. Pt just moved here from [place] and saw Dr. Diez yesterday for anemia workup. Pt reports she is being worked up for beta thalassemia, however she is waiting for insurance approval to acquire more blood testing. She is hoping to begin iron infusions within the next couple of weeks. Patient reports she underwent a colonoscopy in 2019 for her anemia that was normal. She denies irregular vaginal bleeding, hematochezia, melena, hemoptysis or hematemesis. Patient also reports she was diagnosed with seizures in 2019 after undergoing a sleep study that was obtained due to inconsistent sleep and feeling off. States she never followed up with neurology and does not take any anticonvulsants. She does report in the past 1.5 weeks she has been sleeping irregularly and inconsistently, similarly to when she was diagnosed with seizures. She denies known seizures while she is awake, fever, bodies, chills, cough or congestion, sore throat, abdominal pain, urinary complaints, diarrhea, nausea, vomiting, diarrhea, focal numbness or weakness. <Samra Norris PA-C - Last Filed: 07/20/22 19:16> Related Data Home Medications: Home Medications Medication Instructions Recorded Confirmed epinephrine 0.3 mg/0.3 mL 0.3 mg IM ONCE PRN Anaphylaxis 05/22/22 07/17/22 injection, auto-injector raltegravir 400 mg tablet 400 mg PO BID 06/22/22 07/17/22 (Isentress) <Samra Norris PA-C - Last Filed: 07/20/22 19:16> Allergies/Adverse Reactions: Allergies Allergy/AdvReac Type Severity Reaction Status Date / Time imipramine AdvReac Severe hives & Verified 07/20/22 11:25 throat closes venom-wasp AdvReac Severe Anaphylactic Verified 07/20/22 11:25 Shock albuterol AdvReac Intermediate HIVES AND Verified 07/20/22 11:25 THROAT SWELLING cefuroxime AdvReac Intermediate NAUSEA/DIZZ Verified 07/20/22 11:25 INESS shellfish derived AdvReac Intermediate Hives / Verified 07/20/22 11:25 Red Face Sulfa (Sulfonamide AdvReac Mild Hives Verified 07/20/22 11:25 Antibiotics) lavender Allergy Severe angioedema Uncoded 07/20/22 11:25 METOCLOPRAMIDE HCL AdvReac Intermediate Hives / Uncoded 07/20/22 11:25 Red Face PROMETHAZINE HCL AdvReac Intermediate Hives / Uncoded 07/20/22 11:25 Red Face <Samra Norris PA-C - Last Filed: 07/20/22 19:16> Review of Systems Review of Systems: CONSTITUTIONAL: Denies fever, chills EYES: Denies redness, or discharge. ENT: Denies rhinorrhea, congestion, sore throat, or otalgia. CARDIOVASCULAR: Denies chest pain, palpitations, or edema. RESPIRATORY: Denies cough or dyspnea. GASTROINTESTINAL: Denies abdominal pain, nausea, vomiting, or diarrhea. GENITOURINARY: Denies dysuria or hematuria. SKIN: Denies rash or itching. MUSCULOSKELETAL: Denies back pain, joint pain, or myalgia. NEUROLOGIC: See HPI PSYCHIATRIC: Denies anxiety or depression. <Samra Norris PA-C - Last Filed: 07/20/22 19:16> [facility] Past Medical History Medical History: Medical History Anemia An
[2022-07-20] MEDS: KETOROLAC 15 MG/ML VIAL (*BKC) IV PUSH (17:45)
[2022-07-20] MEDS: SODIUM CHLORIDE 0.9% IV 1,000 ML 999 ML IV CONT (17:45)
[2022-07-20] MEDS: diphenhydrAMINE HCl INJ 50 MG/ML VIAL 25 MG IV PUSH (17:46)
[2022-07-20] MEDS: PROCHLORPERAZINE EDISYLATE 10 MG/2 ML VIAL IV PUSH (17:46)
[2022-07-20 18:00] VITALS: BP 103/60; PULSE 94; RESP 16; O2SAT 99
[2022-07-20 18:01] LABS: Influenza A QL RT-PCR Negative (Negative); Influenza B QL RT-PCR Negative (Negative); SARS-CoV-2 RNA PCR Negative (Negative)
[2022-07-20 18:06] LABS: Lactic Acid Reflex 0.9 mmol/L (0.7-2.0)
[2022-07-20 18:41] VITALS: BP 109/66; PULSE 84
[2022-07-20 18:42] VITALS: BP 118/72; PULSE 91
[2022-07-20 18:43] VITALS: BP 116/76; PULSE 91
== END 2022-07-20 19:25 | disposition home or self-care (01) ==
PROVIDERS: Emergency Medicine; Emergency Provider Physician Assistant; PCP Family Medicine
DX: D64.9 Anemia, unspecified (principal); R42 Dizziness and giddiness; R51.9 Headache, unspecified; Z87.891 Personal history of nicotine dependence; F41.9 Anxiety disorder, unspecified; F32.A Depression, unspecified; R94.31 Abnormal electrocardiogram [ECG] [EKG]
CPT/HCPCS: 36415; 70450; 71045; 80053; 81003; 81025; 83605; 85025; 86850; 86900; 86901; 87636; 93005; 96361; 96374; 96375; 99284; J0780; J1200; J1885; J7030

== ENCOUNTER 2022-08-03 11:37 | Outpatient (CLI) | payer OTHER, SELFPAY ==
[2022-08-03 12:08] LABS: Hematocrit 33.3 % (37.0-47.0); Hemoglobin 10.3 g/dL (12.0-15.0); Mean Corpuscular HGB Conc 30.9 g/dl (32-36); Mean Corpuscular Hemoglobin 25.8 pg (26-34); Mean Corpuscular Volume 83.5 fl (80-100); Mean Platelet Volume 8.8 fl (7.4-10.4); Platelet Count Result 279 k/mm3 (150-375); Red Blood Count 3.99 M/mm3 (4.2-5.4); White Blood Count 4.2 K/mm3 (4.5-10.0)
== END 2022-08-03 11:38 | disposition home or self-care (01) ==
PROVIDERS: PCP Family Medicine; Visit Provider Nurse Practitioner Family
DX: D64.9 Anemia, unspecified (principal)
CPT/HCPCS: 36415; 85027

== ENCOUNTER 2022-10-26 11:00 | Outpatient (RCR) | payer OTHER, SELFPAY ==
--- NOTE | 2022-10-17 12:23 | WPDONCPN ---
Progress Note: A/P (1) Iron deficiency anemia Code(s): D50.9 - Iron deficiency anemia, unspecified Status: Acute Assessment and plan: Patient with chronic hx of Iron deficiency anemia (DESTINY). She had PRBC transfusions in january- february 2021. She has seen Dr. Diez in hematology with last visit 07/19/22. At that time she was noted to have severe iron deficiency with ferritin of 3 on 07/17/22. She underwent EGD and Colonoscopy in 2020 with unremarkable exam. Not sure if H. Pylori was checked. At last visit, Dr. Diez recommended IV iron as patient was unable to tolerate oral iron. Patient was undergoing insurance (medicaid) approval of IV Iron but did not get approval. Iron deficiency was thought to be likely from menstrual bleeding although she did not report heavy menstrual cycles. Patient also has Beta Thalassemia. Most recent ferritin done 10/01/22 shows ferritin of 4. Patient is here for further management. she is not able to tolerate oral iron and need IV Iron. Will again seek insurance approval for IV Iron again. She will see Dr. Diez in 3 months. - Time Spent With Patient Total time spent is greater than 50% in coordination of care (as documented) at patient's floor/unit and/or counseling patient: 15 - 25 minutes Subjective Interval history: REASON FOR VISIT: SEVERE IRON DEFICIENCY ANEMIA LIKELY FROM MENSTRUAL BLEEDING HPI: Patient is here for follow up of Iron Deficiency Anemia (DESTINY). She has seen Dr. Diez with last visit 07/19/22. At that time she was noted to have severe iron deficiency with ferritin of 3 on 07/17/22. She underwent EGD and Colonoscopy in 2020 with unremarkable exam. Not sure if H. Pylori was checked. At last visit, Dr. Diez recommended IV iron as patient was unable to tolerate oral iron. Patient was undergoing insurance approval of IV Iron but did not get approval. Iron deficiency was thought to be likely from menstrual bleeding although she did not report heavy menstrual cycles. Patient also has Beta Thalassemia. She is here today for follow up of DESTINY. Most recent ferritin done 10/01/22 shows ferritin of 4. Patient is here for further management. Review of Systems - Review of Systems Patient reports fatigue and low energy level due to anemia. She denies hematochezia or melena. There is no hematuria. She continues to report normal menstrual cycles. Denies chest pain, dyspnea, cough or hemoptysis. there is no abdominal pain, n/v/d. There is no syncope or falls. No TIA or CVA. Exam - Constitutional no acute distress - Routine HEENT Exam Head: Present: atraumatic, normal inspection ENT: Present: mucous membranes moist - Routine Neck Exam Present: full ROM - Routine Respiratory Exam Present: CTAB - Routine Cardiovascular Exam Cardiovascular: Present: RRR, S1, S2 - Routine Extremities Exam Present: full ROM, normal inspection - Routine Back/Spine/Pelvis Exam Back/Spine: Present: full ROM - Routine Skin Exam Present: intact - Routine Neurological Exam Present: alert, oriented X3 PN: Objective Data - Labs CBC & Chem 7: 10/17/22 13:10 10/17/22 13:24
[2022-10-17 13:19] LABS: Hematocrit 32.6 % (37.0-47.0); Hemoglobin 10.1 g/dL (12.0-15.0); Mean Corpuscular Hemoglobin 25.2 pg (26-34); Mean Corpuscular Volume 81.3 fl (80-100); Mean Platelet Volume 9.3 fl (7.4-10.4); Platelet Count Result 263 k/mm3 (150-375); Red Blood Count 4.01 M/mm3 (4.2-5.4); Red Cell Distribution Width 17.7 % (11.5-14.5); White Blood Count 4.6 K/mm3 (4.5-10.0)
[2022-10-17 13:25] LABS: Blood Urea Nitrogen 12 mg/dL (8-26); Carbon Dioxide 25 mmol/L (22-30); Chloride 103 mmol/L (98-109); Estimated Glomerular Filt Rate > 60; Glucose 91 mg/dL (70-105); Ionized Calcium (POC) 1.17 mmol/L (1.11-1.31); Potassium 3.9 mmol/L (3.5-4.9); Sodium 139 mmol/L (138-146)
--- NOTE | 2022-10-23 14:25 | PHAR ---
VERBAL ORDER FROM DR CELY TOWNSEND TO SWITCH FERAHEME TO VENOFER 300MG DAILY FOR 3 DAYS WHICH WAS INSURANCES PREFERENCE.
[2022-10-26 11:07] LABS: Hemoglobin 10.1 g/dL (12.0-15.0); Mean Corpuscular HGB Conc 31.6 g/dl (32-36); Mean Corpuscular Volume 82.3 fl (80-100); Mean Platelet Volume 8.9 fl (7.4-10.4); Platelet Count Result 249 k/mm3 (150-375); Red Blood Count 3.89 M/mm3 (4.2-5.4); Red Cell Distribution Width 18.5 % (11.5-14.5); White Blood Count 4.2 K/mm3 (4.5-10.0)
[2022-10-26 11:59] VITALS: BP 123/81; PULSE 90; RESP 16; O2SAT 99
--- NOTE | 2022-10-26 12:34 | PC.NURSE ---
Patient left without iron infusion, patient did not want to take Benadryl. Patient requests taking oral iron.
== END 2022-10-29 09:51 ==
LOC: AMCINF 11:00
PROVIDERS: PCP Family Medicine; Visit Provider Internal Medicine
DX: D50.9 Iron deficiency anemia, unspecified (principal)
CPT/HCPCS: 36415; 80047; 85027; 99212; G0463; J1756; J7050

== ENCOUNTER 2023-02-20 10:43 | Outpatient (CLI) | payer OTHER, SELFPAY ==
--- NOTE | ~2023-02-20 | XR_ITS ---
EXAMINATION: XR thoracic spine 2V DATE: 02/20/2023 11:23 INDICATION: Worsening back pain. TECHNIQUE: 3 views of thoracic spine were obtained. COMPARISON: Thoracic spine radiographs 01/23/2022 FINDINGS: There is 19 degrees levoscoliosis of upper thoracic spine. There is 20 degrees dextroscolio sis of lower thoracic spine. There is mild chronic anterior wedging of 2 midthoracic vertebral bodies . There is mildly decreased disc height at multiple levels in mid thoracic spine. There are endplate osteophytes at a few levels. IMPRESSION: 1. Mild thoracic spondylosis. 2. Scoliosis. Reviewed, dictated and finalized at location A. RN TO SERVICE INSPECTOR
--- NOTE | ~2023-02-20 | XR_ITS ---
XR lumbar spine 2-3V 02/20/2023 11:23 Indication: History of scoliosis. Worsening pain. Procedure: 3 views lumbar spine Comparison: 06/30/2018 Findings: Mild levoscoliosis. There is disc narrowing at L4-5 and L5-S1. No evidence for fracture, bradley bluxation or spondylolisthesis. Pedicles intact. Sacral foramen are symmetric. Impression: 1: Mild lumbar spondylosis. Reviewed, dictated and finalized at location B. SECURITY ARCHITECT Impression: 1: Mild lumbar spondylosis.
--- NOTE | ~2023-02-20 | XR_ITS ---
XR_[id number] 02/20/2023 11:23 Indication: Worsening pain Procedure: 3 views cervical spine Comparison: 01/23/2022 Findings: There is mild levoscoliosis of the upper thoracic spine. There is uncinate hypertrophy at C 5-6. Vertebral body heights are maintained. There is disc narrowing at C3-4 and C5-6. No prevertebral soft tissue swelling. No fracture or traumatic malalignment. Impression: 1: Mild cervical spondylosis. Reviewed, dictated and finalized at location B. DER OPERATOR Impression: 1: Mild cervical spondylosis.
[2023-02-20 11:55] LABS: Hemoglobin 10.1 g/dL (12.0-15.0); Mean Corpuscular HGB Conc 30.6 g/dl (32-36); Mean Corpuscular Hemoglobin 26.6 pg (26-34); Mean Corpuscular Volume 86.8 fl (80-100); Mean Platelet Volume 9.5 fl (7.4-10.4); Platelet Count Result 255 k/mm3 (150-375); Red Cell Distribution Width 15.8 % (11.5-14.5); White Blood Count 5.1 K/mm3 (4.5-10.0)
[2023-02-20 12:12] LABS: Anion Gap 10 mmol/L (8-16); Blood Urea Nitrogen 19 mg/dL (7-17); Carbon Dioxide 24 mmol/L (22-30); Chloride 104 mmol/L (98-107); Estimated Glomerular Filt Rate > 60; Glucose 86 mg/dL (65-110); Potassium 4.4 mmol/L (3.4-5.0); Sodium 138 mmol/L (137-145)
[2023-02-20 12:55] LABS: Iron 37 ug/dL (37-170)
[2023-02-20 13:04] LABS: Percent Iron Saturation 10 % (20-50)
== END 2023-02-20 10:44 | disposition home or self-care (01) ==
PROVIDERS: PCP Family Medicine; Visit Provider Nurse Practitioner Family
DX: D64.9 Anemia, unspecified (principal); M54.9 Dorsalgia, unspecified; M54.2 Cervicalgia; M43.04 Spondylolysis, thoracic region; M41.84 Other forms of scoliosis, thoracic region; M43.02 Spondylolysis, cervical region; M43.06 Spondylolysis, lumbar region
CPT/HCPCS: 36415; 72040; 72070; 72100; 80048; 83540; 83550; 85027

== ENCOUNTER 2023-07-05 10:54 | Outpatient (CLI) | payer OTHER, SELFPAY ==
--- NOTE | ~2023-07-05 | US_ITS ---
EXAMINATION: US thyroid DATE: 07/05/2023 11:42 INDICATION: Nontoxic single thyroid nodule. TECHNIQUE: Multiple ultrasound images of the thyroid were obtained. COMPARISON: None. FINDINGS: The right thyroid lobe measures 5.4 x 1.7 x 1.9 cm. The left thyroid lobe measures 5.0 x 1.7 x 1.6 c m. In the right thyroid lobe, there is a 12 mm solid, hypoechoic, wider than tall nodule with smooth margin without echogenic foci (TI-RADS TR4). IMPRESSION: 1. Thyroid nodule. Thyroid ultrasound is recommended in one year. Reviewed, dictated and finalized at location A.
== END 2023-07-05 10:55 | disposition home or self-care (01) ==
LOC: ANHIMG 10:54
PROVIDERS: PCP Family Medicine; Visit Provider Physician Assistant
DX: E04.1 Nontoxic single thyroid nodule (principal)
CPT/HCPCS: 76536

== ENCOUNTER 2024-09-02 13:01 | Emergency (ER) | payer OTHER, SELFPAY ==
[2024-09-02 13:05] VITALS: BP 118/86; PULSE 119; RESP 16; TEMP 36.9; O2SAT 100
--- NOTE | 2024-09-02 13:07 | ED_ITS ---
HPI - Skin/Abscess/Foreign Bdy General Chief complaint: Skin/Abscess/Foreign Body Stated complaint: Rash Time Seen by Provider: 09/02/24 13:02 Source: patient Mode of arrival: ambulatory Limitations: no limitations History of Present Illness HPI narrative: Cal alvarez is a 30-year-old female patient presenting to the clinic today with complaints of a rash on her left forearm and abdomen. She reports her abdomen r phuong has improved however she still has itchy red raised rash on the left arm. Is concerned about mold exposure. Her son is in the clinic today with similar rash. Has been taking antihistamines and this has improved her some rash on her abdomen. Denies any shortness of breath or chest pain. Denies any difficulty swallowing. Related Data Allergies Allergy/AdvReac Type Severity Reaction Status Date / Time imipramine Allergy Severe hives & Verified 09/02/24 13:12 throat closes venom-wasp Allergy Severe Anaphylactic Verified 09/02/24 13:12 Shock albuterol Allergy Intermediate HIVES AND Verified 09/02/24 13:12 THROAT SWELLING lavender (Lavandula Allergy Intermediate angioedema Verified 09/02/24 13:12 angustifolia) shellfish derived Allergy Intermediate Hives / Verified 09/02/24 13:12 Red Face metoclopramide (From Reglan) Allergy Mild Hives Verified 09/02/24 13:12 promethazine (From Phenergan) Allergy Mild Hives Verified 09/02/24 13:12 Sulfa (Sulfonamide Allergy Mild Hives Verified 09/02/24 13:12 Antibiotics) acetaminophen Allergy Hives Verified 09/02/24 13:12 cefuroxime AdvReac Intermediate NAUSEA/DIZZ Verified 09/02/24 13:12 INESS ondansetron (From Zofran) AdvReac Intermediate Other Verified 09/02/24 13:12 Review of Systems Review of Systems: Pertinent positives per HPI. Patient denies any fever, chills, headache, visual changes, dizziness, cough, runny nose, sore throat, shortness of breath, chest pain, palpitations, nausea, vomiting, diarrhea, constipation, abdominal pain, or any urinary issues. PMFSH Past Medical History Medical History Anemia Fracture of fifth metacarpal bone Anxiety and depression Surgical History Surgical History H/O tubal ligation H/O LEEP H/O breast augmentation Family History Family History Grandparent Hypertension Cerebrovascular accident Family history of lung cancer Family history of heart disease in male family member before age 55 Father Hyperlipidemia Mother Heart disease Hypertension Sibling Heart disease Social History Social History Smoking status: Former smoker Second hand tobacco smoke exposure: No Alcohol intake: never Substance use: never Substance use type: does not use Lack of Transportation: No Lack of Food: Never True Current Housing: I Have Housing Concerned About Future Housing: No Difficulty Paying Gas/Electric Bills: No Difficulty Paying for Meds: No Currently Unemployed: No Education: High School Diploma/GED Difficulty w/ Childcare or Family Care: No Living arrangements: with family Occupation/Education: student 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 There is no relevant family history pertinent to the patient complaint. Exam Narrative: General: Well-developed, well nourished, in no apparent distress Head: Normocephalic, atraumatic. Cardio: Regular rate and rhythm, s1 and s2 normal, no murmur appreciated. Resp: Clear to auscultation bilaterally, no rhonchi, rales, wheezing or rubs. Integumentary: [place], warm, and dry, red, raised, itchy rash to the left forearm. Course Course Emergency Course: Portions of this record may have been created with voice recognition software. Level of Care: Express Care Visit Vital Signs Vital signs: Vital Signs Temperature 36.9 C 09/02/24 13:05 Pulse Rate 119 H 09/02/24 13:05 Respiratory Rate 16 09/02/24 13:05 Blood Pressure 118/86 09/02/24 13:05 Pulse Oximetry 100 09/02/24 13:05 Oxygen Delivery Room Air 09/02/24 13:05 Temperature 36.9 C 09/02/24 13:05 Pulse Rate 119 H 09/02/24 13:05 Respiratory Rate 16 09/02/24 13:05 Blood Pressure 118/86 09/02/24 13:05 Pulse Oximetry 100 09/02/24 13:05 Oxygen Delivery Room Air 09/02/24 13:05 Vital signs reviewed MDM - Skin/Abscess/Foreign Bdy MDM Narrative Medical decision making narrative: At the time of visit patient is resting comfortably on the exam table. Patient appears to be nontoxic. Plan: I suspect patient has dermatitis. Prescription for prednisone and triamcinolone cream was sent to the pharmacy. Supportive measures were discussed with the patient and they voiced understanding discharge instructions and agrees to treatment plan. Return precautions reviewed Differential Diagnosis Differential diagnosis: Likely abscess of skin or subcutaneous tissue, viral exanthem, dermatophytosis, urticaria, herpes zoster, allergic reaction to drug, cellulitis, eczema, insect bites, impetigo, contact dermatitis and other (Scabies) Discharge Plan Discharge Clinical Impression: Dermatitis Patient Disposition: Home Condition: Stable Instructions: Antibiotic Form, Dermatitis (ED) Additional Instructions: Apply triamcinolone cream as directed Take prednisone as directed Avoid hot showers Avoid allergic trigger Avoid scratching as this can cause a secondary infection May take Zyrtec or Claritin daily as needed for itching. Follow up with your PCP in 3-5 days if symptoms persist or sooner if they worsen Go to the Emergency Room if symptoms worsen- fever, rash spreading with treatment, shortness of breath, tongue swelling, drooling, or chest pain Patient Language: Serbian Prescriptions: New prednisone 20 mg tablet 40 mg PO DAILY 5 Days Qty: 10 0RF triamcinolone acetonide 0.1 % cream 1 applic topical BID 7 Days Qty: 30 0RF No Action sumatriptan succinate [Imitrex] 50 mg tablet See Rx Instructions PO .COMPLEX Qty: 9 2RF Rx Instructions: take 1 tab at onset of headache; if no relief may repeat 1 tab after at least 2 hrs; max = 4 tabs/24 hr PO bupropion HCl [Wellbutrin XL] 300 mg tablet extended release 24 hr 300 mg PO QAM Qty: 90 1RF clonazepam [Klonopin] 0.5 mg tablet 0.5 mg PO BID PRN (Reason: anxiety) Qty: 60 0RF Follow-up/Referrals: Patricia,Rohith Payton [Other] Time of Disposition: 13:08 Quality NIHSS Nursing Documentation ED NIHSS nursing documentation: reviewed/agree
--- OUTSIDE RECORDS SUMMARY | 2024-09-02 15:07 | XMS_ITS | Encounter Summary ---
Author Organization [facility] Address [address] [place] [address] Care Team Providers Care Roller Skate Repairer Name Role Phone Eren Wade MD Primary Care Provider [phone] Encounter Details Date Type Department Care Team (Latest Contact Info) Description 05/21/2005 Outpatient Historical HIS PATIENT IN A [facility] [place] [id number] [facility] [address] [place] [id number] MILD HYPEREMESIS-ANTEPAR (Primary Dx) Social History Tobacco Use Types Packs/Day Years Used Date Smoking Tobacco: Never Assessed Comments Unknown Sex and Gender Information Value Date Recorded Sex Assigned at Not on file Legal Sex Female 5:19 AM CASEWORK SPECIALIST Gender Identity Not on file Sexual Orientation Not on file documented as of this encounter Plan of Treatment Not on file documented as of this encounter Procedures Procedure Name Priority Date/Time Associated Diagnosis Comments CBC WITH DIFFERENTIAL Routine 05/21/2005 12:55 PM CASEWORK SPECIALIST CBC WITH DIFFERENTIAL Routine 05/21/2005 12:55 PM CASEWORK SPECIALIST BASIC METABOLIC PANEL Routine 05/21/2005 12:55 PM CASEWORK SPECIALIST documented in this encounter Results * CBC WITH DIFFERENTIAL (05/21/2005 12:55 PM CASEWORK SPECIALIST) NEUTROPHILS 70 45 - 70 % INTERFAC E SYSTEM LYMPHOCYTES 22 16 - 45 % INTERFAC E SYSTEM MONOCYTES 8 3 - 13 % INTERFACE SYSTEM EOSINOPHILS 1 0 - 7 % INTERFAC E SYSTEM BASOPHILS 0 0 - 2 % INTERFACE SYSTEM NEUTROPHIL ABSOLUTE 6.17 1.90 - 7.00 K/uL INTERFACE SYSTEM LYMPHOCYTE ABSOLUTE 1.91 0.70 - 4.50 K/uL INTERFACE SYSTEM MONOCYTE ABSOLUTE 0.71 0.10 - 1.30 K/uL INTERFACE SYSTEM EOSINOPHIL ABSOLUTE 0.06 0.00 - 0.70 K/uL INTERFACE SYSTEM BASOPHILS ABSOLUTE 0.02 0.00 - 0.20 K/uL INTERFACE SYSTEM 05/21/2005 12:5 5 PM CASEWORK SPECIALIST [facility] HEMATOLOGY ORDERABLES Final Re sult Performing Organization Address City/[facility] de Phone Number INTERFACE SYSTEM Refer to clinic/hospital department * CBC WITH DIFFERENTIAL (05/21/2005 12:55 PM CASEWORK SPECIALIST) WBC 8.9 4.0 - 9.8 K/uL INTERFACE SYSTEM RBC 4.17 3.90 - 4.90 M/uL INTERFACE SYSTEM HEMOGLOBIN 12.5 11.8 - 14.8 g/dL INTERFACE SYSTEM HEMATOCRIT 35.8 35.5 - 44.0 % INTERFACE SYSTEM MCV 85.9 82.0 - 99.0 fL INTERFACE SYSTEM MCH 30.0 27.2 - 32.6 pg INTERFACE SYSTEM MCHC 34.9 31.5 - 35.5 % INTERFACE SYSTEM RDW 14.1 11.5 - 14.5 % INTERFACE SYSTEM RDW-STDEV 44.0 37.1 - 48.7 fL INTERFACE SYSTEM PLATELETS 236 140 - 350 K/uL INTERFACE SYSTEM MPV 9.8 9.3 - 12.4 fL INTERFACE SYSTEM 05/21/2005 12:5 5 PM CASEWORK SPECIALIST [facility] HEMATOLOGY ORDERABLES Final Re sult Performing Organization Address [facility] de Phone Number INTERFACE SYSTEM Refer to clinic/hospital department * BASIC METABOLIC PANEL (05/21/2005 12:55 PM CASEWORK SPECIALIST) GLUCOSE 78 65 - 109 mg/dL INTERFACE SYSTEM CREATININE 0.7 0.4 - 1.2 mg/dL INTERFACE SYSTEM CALCIUM 9.2 8.6 - 10.2 mg/dL INTERFACE SYSTEM BUN 8 6 - 20 mg/dL INTERFACE SYSTEM SODIUM 136 135 - 145 mmol/L INTERFACE SYSTEM POTASSIUM 3.7 3.5 - 4.9 mmol/L INTERFACE SYSTEM CHLORIDE 99 96 - 108 mmol/L INTERFACE SYSTEM CO2 24 22 - 30 mmol/L INTERFACE SYSTEM 05/21/2005 12:5 5 PM CASEWORK SPECIALIST Dolly Mcfadden DO CHEMISTRY ORDERABLES Final Res ult INTERFACE SYSTEM Refer to clinic/hospital department documented in this encounter Visit Diagnoses Diagnosis Mild hyperemesis gravidarum, antepartum- Primary documented in this encounter Additional Health Concerns Infection Onset Date Last Indicated Resolved Time COVID-19 10/25/2023 10/25/2023 11/14/2023 1:16 AM CDT documented as of this encounter Care Teams Roller Skate Repairer Relationship Specialty Start Date End Date Eren Wade MD [address] [place] [address] PCP - General Family Practice 07/19/22 documented as of this encounter
--- OUTSIDE RECORDS SUMMARY | 2024-09-02 15:07 | XMS_ITS | Clinical Summary ---
Author Organization [facility] Oma Barnes Address [address] [place] [address] Care Team Providers Care Meter Tester Polyphase Name Role Phone Eren Wade MD Primary Care Provider [phone] Allergies Active Allergy Reactions Criticality Noted Date Comments Imipramine 03/12/2005 Sulfa (Sulfonamide Antibiotics) 02/22 Medications buPROPion HCL (WELLBUTRIN XL) 300 mg Extended Release 24 hour tablet Take 300 mg by mouth daily in the morning. 3 Active clonazePAM (KlonoPIN) 0.5 mg Tablet TAKE 1/2 TABLET BY MOUTH THREE TIMES DAILY NEEDED FOR ANXIETY 3 Active EPINEPHrine (EPIPEN) 0.3 mg/0.3 mL Auto-Injector Inject 0.3 mg by intramuscular injection 1 time daily as needed. 2 Active doxycycline hyclate (VIBRAMYCIN) 100 mg capsule Take 100 mg by mouth 2 times daily. Active metroNIDAZOLE (FLAGYL) 500 mg tablet Take 500 mg by mouth 2 times daily. Active ondansetron (ZOFRAN) 4 mg Tablet Take 4 mg by mouth every 8 hours as needed for Nausea/Emesis. Active fluticasone propionate (FLONASE) 50 mcg/spray [place], Suspension nasal inhalerIndicat ions:COVID-19 virus detected Administer 2 Sprays in each nostril daily. 16 Gram 4 Active Active Problems Problem Noted Date Diagnosed Date Acute upper respiratory infections of unspecifie d site 03/12/2005 Encounters Date Type Department Care Team Description 08/13/2024 External Device Data STL ABSTRACTION Provider, Abstract 08/11/2024 External Device Data STL ABSTRACTION Provider, Abstract 07/07/2024 External Device Data ST[facility] ABSTRACTION Provider, Abstract 06/10/2024 External Device Data [facility] ABSTRACTION Provider, Abstract 06/10/2024 External Device Data ST[facility] ABSTRACTION Provider, Abstract from Last 3 Months Family History Medical History Relation Name Comments Heart Disease Father Skin Cancer Father Heart Disease Mother Relation Name Status Comments Brother 1 Alive Brother 2 Alive Father Alive Mother Alive Sister Alive Son 1 Alive Son 2 Alive Social History Tobacco Use Types Packs/Day Years Used Date Smoking Tobacco: Never Smokeless Tobacco: Never Tobacco Cessation:Counseling Given: Not Answered Alcohol Use Standard Drinks/Week Comments Never 0 (1 standard drink = 0.6 oz pur e alcohol) Comments Unknown Sex and Gender Information Value Date Recorded Sex Assigned at Not on file Legal Sex Female 5:19 AM 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 Gender Identity Not on file Sexual Orientation Not on file Last Filed Vital Signs Vital Sign Reading Time Taken Comments Blood Pressure 129/90 10/25/2023 10:17 AM CDT Pulse 99 10/25/2023 10:17 AM CDT Temperature 36.6 C (97.8 F) 10/25/2023 10:17 AM CDT Respiratory Rate 17 10/25/2023 10:17 AM CDT Oxygen Saturation 98% 10/25/2023 10:17 AM CDT Inhaled Oxygen Concentration - - Weight 74.8 kg (165 lb) 10/25/2023 10:17 AM CDT Height 175.3 cm (5' 9) 10/25/2023 10:17 AM CDT Body Mass Index 24.37 10/25/2023 10:17 AM CDT Plan of Treatment Health Maintenance Due Date Last Done Comments HEPATITIS B VACCINES (1 of 3 - 19+ 3-dose series) 2004 HPV/Cotest (21-29) 2006 CERVICAL CANCER SCREENING 11/10/2015 HPV/Cotest (30-65) 11/10/2015 PAP SMEAR 11/10/2015 INFLUENZA VACCINE (#1) 2023 DTAP/TDAP/TD VACCINES (2 - T d or Tdap) 07/19/2030 07/19/2020 HPV VACCINES Aged Out No longer eligi ble based on patient's age to complete this topic Insurance [place] Care Teams Meter Tester Polyphase Relationship Specialty Start Date End Date Eren Wade MD [address] [place] [address] PCP - General Family Practice 07/19/22
--- OUTSIDE RECORDS SUMMARY | 2024-09-02 15:08 | XMS_ITS | Encounter Summary ---
Author Organization [facility] Address [address] [place] [address] Care Team Providers Care Clock And Watch Hands Mounter Name Role Phone Eren Wade MD Primary Care Provider [phone] Encounter Details Date Type Department Care Team (Latest Contact Info) Description 10/24/2005 Outpatient Historical HIS [facility] Madhu Willis MD NO ADDRESS ON FILE KarrieDolly nielson, [facility] [address] [place] [address] Decreased Movements, Affecting Management of Mother, Antepartum (Primary Dx) Social History Tobacco Use Types Packs/Day Years Used Date Smoking Tobacco: Never Assessed Comments Unknown Sex and Gender Information Value Date Recorded Sex Assigned at Not on file Legal Sex Female 5:19 AM NEUROSURGICAL PHYSICIAN ASSISTANT Gender Identity Not on file Sexual Orientation Not on file documented as of this encounter Plan of Treatment Not on file documented as of this encounter Visit Diagnoses Diagnosis Decreased movements, affecting management of mother, antepartum- Primary documented in this encounter Additional Health Concerns Infection Onset Date Last Indicated Resolved Time COVID-19 10/25/2023 10/25/2023 11/14/2023 1:16 AM CDT documented as of this encounter Care Teams Clock And Watch Hands Mounter Relationship Specialty Start Date End Date Eren Wade MD [address] [place] [address] PCP - General Family Practice 07/19/22 documented as of this encounter
--- OUTSIDE RECORDS SUMMARY | 2024-09-02 15:08 | XMS_ITS | Encounter Summary ---
Author Organization [facility] Address [address] [place] [address] Care Team Providers Care Die Maker Electronic Name Role Phone Eren Wade MD Primary Care Provider [phone] Encounter Details Date Type Department Care Team (Late st Contact Info) Description 03/12/2005 Outpatient Historical [facility] Family Medicine [facility] [address] [facility] [address] [place] [address] Herve Tian MD [address] [place] [address] Social History Tobacco Use Types Packs/Day Years Used Date Smoking Tobacco: Never Assessed Comments Unknown Sex and Gender Information Value Date Recorded Sex Assigned at Not on file Legal Sex Female 5:19 AM PROJECT ENGINEER CHEMICALS Gender Identity Not on file Sexual Orientation Not on file documented as of this encounter Last Filed Vital Signs Vital Sign Reading Time Taken Comments Blood Pressure 112/68 03/12/2005 3:45 PM PROJECT ENGINEER CHEMICALS Pulse - - Temperature 37.6 C (99.7 F) 03/12/2005 3:45 PM PROJECT ENGINEER CHEMICALS Respiratory Rate - - Oxygen Saturation - - Inhaled Oxygen Concentration - - Weight 68.9 kg (152 lb) 03/12/2005 3:45 PM PROJECT ENGINEER CHEMICALS Height 175.3 cm (5' 9) 03/12/2005 3:45 PM PROJECT ENGINEER CHEMICALS Body Mass Index 22.45 03/12/2005 3:45 PM PROJECT ENGINEER CHEMICALS documented in this encounter Plan of Treatment Not on file documented as of this encounter Visit Diagnoses Not on filedocumented in this encounter Additional Health Concerns Infection Onset Date Last Indicated Resolved Time COVID-19 10/25/2023 10/25/2023 11/14/2023 1:16 AM CDT documented as of this encounter Care Teams Die Maker Electronic Relationship Specialty Start Date End Date Eren Wade MD [address] [place] [address] PCP - General Family Practice 07/19/22 documented as of this encounter
--- OUTSIDE RECORDS SUMMARY | 2024-09-02 15:08 | XMS_ITS | Clinical Summary ---
Author Organization [facility] Address [address] [place] [address] Care Team Providers Care Nursing Manager Name Role Phone Eren Wade MD Primary Care Provider Allergies Active Allergy Reactions Criticality Noted Date Comments Lavender Anaphylaxis High 05/13/2021 Sulfa (Sulfonamide Antibiotics) Rash,Swelling,Urticaria Medium 09/12/2015 Swelling Acetaminophen Hives Medium 05/13/2021 Medications famotidine (PEPCID) 20 mg tablet Take 1 tablet (20 mg total) by mouth 2 (two) times a day 30 tablet 05/13/2021 Active Active Problems Problem Noted Date Diagnosed Date Iron deficiency anemia 11/29/2022 Family History Medical History Relation Name Comments Heart disease Brother Von Willebrand disease Brother Hyperlipidemia Father pacemaker Mother Hyperlipidemia Sister Relation Name Status Comments Brother Father Mother Sister Social History Tobacco Use Types Packs/Day Years Used Date Smoking Tobacco: Never Smokeless Tobacco: Never Tobacco Cessation:Counseling Given: No Personal Safety Answer Date Recorded Have you ever been in or are you currently in a harmful physical or emotional relationship or is someone making you feel afraid or unsafe? Denies 10/20/2022 Comments No Sex and Gender Information Value Date Recorded Sex Assigned at Not on file Legal Sex Female 9:11 PM DEPOSITING MACHINE OPERATOR Gender Identity Not on file Sexual Orientation Not on file Obstetrics History Last Filed Vital Signs Vital Sign Reading Time Taken Comments Blood Pressure 113/80 11/28/2022 9:49 AM CDT Pulse 92 11/28/2022 9:49 AM CDT Temperature 36.2 C (97.2 F) 11/28/2022 9:49 AM CDT Respiratory Rate 18 11/28/2022 9:49 AM CDT Oxygen Saturation 99% 11/28/2022 9:49 AM CDT Inhaled Oxygen Concentration - - Weight 72.2 kg (159 lb 3.2 oz) 11/28/2022 9:49 A M CDT Height 177.8 cm (5' 10) 11/28/2022 9:49 AM CDT Body Mass Index 22.84 11/28/2022 9:49 AM CDT Plan of Treatment Health Maintenance Due Date Last Done Comments Cervical Cancer Screening 1985 Depression Screening 1985 Hepatitis C Screening 1985 Varicella Vaccines (1 of 2 - 13+ 2-dose series) 1998 Hepatitis B Screening 11/10/2003 Regular Well Visit/Exam 18-64 11/10/2003 Influenza Vaccine (Season Ended) 2024 DTaP/Tdap/Td Vaccine (2 - Td or Tdap) 07/19/2030 07/19/2020 HPV Vaccines Aged Out No longer eligi ble based on patient's age to complete this topic Pneumococcal vaccine <65 Aged Out No longer eligible based on patient's age to complete this topic Insurance [place] [address] [address] [facility] Care Teams Nursing Manager Relationship Specialty Start Date End Date Eren Wade MD PCP - General 03/10/19
--- OUTSIDE RECORDS SUMMARY | 2024-09-02 15:08 | XMS_ITS | Encounter Summary ---
Author Organization [facility] Address [address] [place] [address] Care Team Providers Care Thermite Bomb Loader Name Role Phone Eren Wade MD Primary Care Provider Encounter Details Date Type Department Care Team (Late st Contact Info) Description 10/24/2005 Outpatient Historical [facility] Maternal and Ground Floor [address] [facility] [address] [place] [address] Sergio Valenzuela MD [address] [place] [address] Social History Tobacco Use Types Packs/Day Years Used Date Smoking Tobacco: Never Assessed Comments Unknown Sex and Gender Information Value Date Recorded Sex Assigned at Not on file Legal Sex Female 5:19 AM INTERNATIONAL RELATIONS PROFESSOR Gender Identity Not on file Sexual Orientation Not on file documented as of this encounter Plan of Treatment Not on file documented as of this encounter Visit Diagnoses Not on filedocumented in this encounter Additional Health Concerns Infection Onset Date Last Indicated Resolved Time COVID-19 10/25/2023 10/25/2023 11/14/2023 1:16 AM CDT documented as of this encounter Care Teams Thermite Bomb Loader Relationship Specialty Start Date End Date Eren Wade MD [address] [place] [address] PCP - General Family Practice 07/19/22 documented as of this encounter
--- OUTSIDE RECORDS SUMMARY | 2024-09-02 15:08 | XMS_ITS | Encounter Summary ---
Author Organization [facility] Address [address] [place] [address] Care Team Providers Care Channeling Machine Operator Name Role Phone Eren Wade MD Primary Care Provider [phone] Encounter Details Date Type Department Care Team (Late st Contact Info) Description 12/21/2005 Outpatient Historical [facility] Dolly Mcfadden DO [address] [facility] [address] [place] [address] Social History Tobacco Use Types Packs/Day Years Used Date Smoking Tobacco: Never Assessed Comments Unknown Sex and Gender Information Value Date Recorded Sex Assigned at Not on file Legal Sex Female 5:19 AM MINE SAFETY MANAGER Gender Identity Not on file Sexual Orientation Not on file documented as of this encounter Plan of Treatment Not on file documented as of this encounter Visit Diagnoses Not on filedocumented in this encounter Additional Health Concerns Infection Onset Date Last Indicated Resolved Time COVID-19 10/25/2023 10/25/2023 11/14/2023 1:16 AM CDT documented as of this encounter Care Teams Channeling Machine Operator Relationship Specialty Start Date End Date Eren Wade MD [address] [place] [address] PCP - General Family Practice 07/19/22 documented as of this encounter
--- OUTSIDE RECORDS SUMMARY | 2024-09-02 15:08 | XMS_ITS | Encounter Summary ---
Author Organization [facility] Address [address] [place] [address] Care Team Providers Care Electrical Estimator Name Role Phone Eren Wade MD Primary Care Provider [phone] Encounter Details Date Type Department Care Team (Late st Contact Info) Description 11/02/2005 Outpatient Historical [facility] Maternal and Ground Floor [address] [place] [address] Kusum Moeller MD [address] [place] [address] Social History Tobacco Use Types Packs/Day Years Used Date Smoking Tobacco: Never Assessed Comments Unknown Sex and Gender Information Value Date Recorded Sex Assigned at Not on file Legal Sex Female 5:19 AM POLISHER APPRENTICE Gender Identity Not on file Sexual Orientation Not on file documented as of this encounter Plan of Treatment Not on file documented as of this encounter Visit Diagnoses Not on filedocumented in this encounter Additional Health Concerns Infection Onset Date Last Indicated Resolved Time COVID-19 10/25/2023 10/25/2023 11/14/2023 1:16 AM CDT documented as of this encounter Care Teams Electrical Estimator Relationship Specialty Start Date End Date Eren Wade MD [address] [place] [address] PCP - General Family Practice 07/19/22 documented as of this encounter
--- OUTSIDE RECORDS SUMMARY | 2024-09-02 15:08 | XMS_ITS | Encounter Summary ---
Author Organization [facility] Address 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 Gender Identity Not on file Sexual Orientation Not on file documented as of this encounter Plan of Treatment Not on file documented as of this encounter Procedures Procedure Name Priority Date/Time Associated Diagnosis Comments CBC WITH DIFFERENTIAL Routine 12/03/2005 3:55 PM CDT CBC WITH DIFFERENTIAL Routine 12/03/2005 3:55 PM CDT documented in this encounter Results * (ABNORMAL) CBC WITH DIFFERENTIAL (12/03/2005 3:55 PM CDT) NEUTROPHILS 79(H) 45 - 70 % INTERFAC E SYSTEM LYMPHOCYTES 15(L) 16 - 45 % INTERFAC E SYSTEM MONOCYTES 6 3 - 13 % INTERFACE SYSTEM EOSINOPHILS 1 0 - 7 % INTERFAC E SYSTEM BASOPHILS 0 0 - 2 % INTERFACE SYSTEM NEUTROPHIL ABSOLUTE 9.46(H) 1.90 - 7.00 K/uL INTERFACE SYSTEM LYMPHOCYTE ABSOLUTE 1.74 0.70 - 4.50 K/uL INTERFACE SYSTEM MONOCYTE ABSOLUTE 0.67 0.10 - 1.30 K/uL INTERFACE SYSTEM EOSINOPHIL ABSOLUTE 0.06 0.00 - 0.70 K/uL INTERFACE SYSTEM BASOPHILS ABSOLUTE 0.01 0.00 - 0.20 K/uL INTERFACE SYSTEM 12/03/2005 3:55 PM CDT Dolly Gutierrez Bogdan [facility]AT[facility] ORDERABLES Final Re sult INTERFACE SYSTEM Refer to clinic/hospital department * (ABNORMAL) CBC WITH DIFFERENTIAL (12/03/2005 3:55 PM CDT) WBC 11.9(H) 4.0 - 9.8 K/uL INTERFACE SYSTEM RBC 3.51(L) 3.90 - 4.90 M/uL INTERFACE SYSTEM HEMOGLOBIN 10.6(L) 11.8 - 14.8 g/dL INTERFACE SYSTEM HEMATOCRIT 31.5(L) 35.5 - 44.0 % INTERFACE SYSTEM MCV 89.7 82.0 - 99.0 fL INTERFACE SYSTEM MCH 30.2 27.2 - 32.6 pg INTERFACE SYSTEM MCHC 33.7 31.5 - 35.5 % INTERFACE SYSTEM RDW 14.6(H) 11.5 - 14.5 % INTERFACE SYSTEM RDW-STDEV 47.8 37.1 - 48.7 fL INTERFACE SYSTEM PLATELETS 214 140 - 350 K/uL INTERFACE SYSTEM MPV 9.4 9.3 - 12.4 fL INTERFACE SYSTEM 12/03/2005 3:55 PM CDT Dolly Gutierrez Bogdan [facility] HEMAT[facility] ORDERABLES Final Re sult INTERFACE SYSTEM Refer to clinic/hospital department documented in this encounter Visit Diagnoses Diagnosis Post term , delivered with or without mention of antepartum condition- Primary documented in this encounter Additional Health Concerns Infection Onset Date Last Indicated Resolved Time COVID-19 10/25/2023 10/25/2023 11/14/2023 1:16 AM CDT documented as of this encounter Care Teams Oilseed Meat Presser Relationship Specialty Start Date End Date Eren Wade MD [address] [place] [address] PCP - General Family Practice 07/19/22 documented as of this encounter
--- OUTSIDE RECORDS SUMMARY | 2024-09-02 15:08 | XMS_ITS | Encounter Summary ---
Author Organization [facility] Address 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 [address] PCP - General Family Practice 07/19/22 documented as of this encounter
--- OUTSIDE RECORDS SUMMARY | 2024-09-02 15:08 | XMS_ITS | Encounter Summary ---
Author Organization [facility] Address [address] [place] [address] Care Team Providers Care Prepress Supervisor Name Role Phone Eren Wade MD Primary Care Provider [phone] Encounter Details Date Type Department Care Team (Latest Contact Info) Description 10/19/2005 Outpatient Historical [facility] Dolly Mcfadden DO [address] [place] [id number] Abnormality in Heart Rate/Rhythm, Antepartum (Primary Dx) Social History Tobacco Use Types Packs/Day Years Used Date Smoking Tobacco: Never Assessed Comments Unknown Sex and Gender Information Value Date Recorded Sex Assigned at Not on file 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 [address] PCP - General Family Practice 07/19/22 documented as of this encounter
--- OUTSIDE RECORDS SUMMARY | 2024-09-02 15:08 | XMS_ITS | Encounter Summary ---
Author Organization [facility] Address 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 [address] PCP - General Family Practice 07/19/22 documented as of this encounter
--- OUTSIDE RECORDS SUMMARY | 2024-09-02 15:08 | XMS_ITS | Encounter Summary ---
Author Organization [facility] Address [address] [place] [address] Care Team Providers Care Technical Intern Name Role Phone Eren Wade MD Primary Care Provider [phone] Encounter Details Date Type Department Care Team (Late st Contact Info) Description 11/20/2005 Outpatient Historical [facility] Dolly Mcfadden DO [address] 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 [address] PCP - General Family Practice 07/19/22 documented as of this encounter
--- OUTSIDE RECORDS SUMMARY | 2024-09-02 15:08 | XMS_ITS | Encounter Summary ---
Author Organization [facility] Address 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 [address] PCP - General Family Practice 07/19/22 documented as of this encounter
--- OUTSIDE RECORDS SUMMARY | 2024-09-02 15:08 | XMS_ITS | Referral Summary ---
Author Organization [facility] Address [address] [place] [address] Care Team Providers Care Theoretical Physicist Name Role Phone Eren Wade MD Primary [...] Date Diagnosed Date Iron deficiency anemia 11/29/2022 Social History Tobacco Use Types Packs/Day Years [...] on file Legal Sex Female 9:11 PM CHIEF UNDERWRITER Gender Identity Not on file Sexual Orientation [...] 11/28/2022 9:49 AM CDT Plan of Treatment Not on file Insurance [place] Member Subscriber Plan / Payer (Ef fective 2021-Present) Name:Ida Ortega Relation to Subscriber:Self Name:Ida Ortega Payer ID:[id number] Group ID:Not on file Type:MEDICAID OTHER Address: [address] [facility] Care Teams Theoretical Physicist Relationship Specialty Start Date End Date Eren Wade MD [facility] - General 03/10/19
--- OUTSIDE RECORDS SUMMARY | 2024-09-02 15:08 | XMS_ITS | Encounter Summary ---
Author Organization [facility] Address [address] [place] [address] Care Team Providers Care Kerfer Machine Operator Name Role Phone Eren Wade MD Primary Care Provider [phone] Encounter Details Date Type Department Care Team (Late st Contact Info) Description 10/30/2005 Outpatient Historical [facility] Maternal and Ground Floor [address] [place] [address] Corey Patel MD [address] [facility] [address] [place] [address] Social History Tobacco Use Types Packs/Day Years Used Date Smoking Tobacco: Never Assessed Comments Unknown Sex and Gender Information Value Date Recorded Sex Assigned at Not on file Legal Sex Female 5:19 AM SMT OPERATOR Gender Identity Not on file Sexual Orientation Not on file documented as of this encounter Plan of Treatment Not on file documented as of this encounter Visit Diagnoses Not on filedocumented in this encounter Additional Health Concerns Infection Onset Date Last Indicated Resolved Time COVID-19 10/25/2023 10/25/2023 11/14/2023 1:16 AM CDT documented as of this encounter Care Teams Kerfer Machine Operator Relationship Specialty Start Date End Date Eren Wade MD [address] [place] [address] PCP - General Family Practice 07/19/22 documented as of this encounter
--- OUTSIDE RECORDS SUMMARY | 2024-09-02 15:08 | XMS_ITS | Encounter Summary ---
Author Organization [facility] Address [address] [place] [address] Care Team Providers Care Industrial Health And Safety Professor Name Role Phone Eren Wade MD Primary Care Provider Encounter Details Date Type Department Care Team (Late st Contact Info) Description 11/20/2005 Outpatient Historical [facility] Maternal and Ground Floor [address] [place] [address] Zacarias Melchor MD NO ADDRESS ON FILE Social History Tobacco Use Types Packs/Day Years Used Date Smoking Tobacco: Never Assessed Comments Unknown Sex and Gender Information Value Date Recorded Sex Assigned at Not on file 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 [address] PCP - General Family Practice 07/19/22 documented as of this encounter
--- OUTSIDE RECORDS SUMMARY | 2024-09-02 15:08 | XMS_ITS | Patient Health Record ---
Author Organization [facility] Address [address] [place] [address] Care Team Providers Care Main Line Assembler Name Role Phone Fer Rossi Primary Care Provider [phone] Becky [place] Unavailable [phone] Allergies No Known Allergies Results Component Value Reference Range Notes 12 Panel Urine Drug Screen Reviewed date:08/20/2024 09:08:06 AM Interpretation: Performing Lab: Notes/Report: THC N BRIAN N MOP (OPI) N AMP P MET N BAR N BZO P MDMA N MTD N OXY N PCP N BUP N Reason For Referral No Information Medications Medication SIG (Take, Route, Frequency, Duration) Notes Start Date End Date Status buPROPion HCl ER (XL) 150 MG Take 1 tablet in am for 90 days Active Acyclovir 400 MG Oral for 30 Days Active buPROPion HCl ER (XL) 150 MG 1 tablet in the morning Orally Once a day for 30 days Active Adderall 10 MG 1 tablet Orally once a day for 30 days Can be filled 06/15/24 08/10/2024 Active Adderall XR 20 MG 1 capsule in the morning Orally Once a day for 30 days Can be filled 06/15/24 08/10/2024 Active clonazePAM 0.5 MG 1 tablet Orally thre e times a day for 30 days Can be filled 06/15/24 08/10/2024 Active Social History Tobacco Use: Social History Observation Description Date Details (start date - stop date) Never Smoker NA - NA PRAPARE Question Answer Notes Date Completed/Updated: 06/03/2024 What is your current housing situation? I have h ousing Are you worried about losing your housing? No What is the highest level of school that you have finished? More than high school What is your current work situation? Oth erwise unemployed but not seeking work (ex. 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 Check all that apply I do not have problems meeting my needs Has lack of transportation k ept you from medical appointments, meetings, work or from getting things needed for daily living? Yes, it has kept me from non-medical meetings, appointments, work, or getting things needed for daily living How often do you see or talk to people that you care about and feel close to? (For example: talking to friends on the phone, visiting friends or family, going to mormonism or club meetings) 3 to 5 times a week How stressed are you? Stress is when someone feels tense, nervous, anxious, or can\t sleep at night because their mind is troubled Quite a bit In the past year have you sp ent more than 2 nights in a row in a usp, senior care, care home center, or juvenile correctional facility? No Do you feel physically and e motionally safe where you currently live? Yes In the past year, have you b een afraid of your partner or ex-partner? No PRAPARE Score: 5 Tobacco Control (Standard) Question Answer Notes Additional Findings: Tobacco non-user Current no nsmoker Tobacco use: Nonsmoker Problems Problem Type SNOMED Code ICD Code Onset Dates Problem Status W/U Status Risk Notes Problem Posttraumatic stress disorder (35870482) PTSD (post-traumatic stress disorder) (F43.10) Active confirmed Problem Anxiety (39982815) Anxiety (F41.9) Active confirmed Problem Attention deficit hyperactivity disorder (185691966) ADHD (attention deficit hyperactivity disorder) (F90.9) Active confirmed Problem Depression (33901928) Depression (emotion) (F32.9) Active confirmed Problem Agoraphobia with panic attacks (550845401) 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 Vital Signs Heart Rate 105 /min 08/10/2024 Respiratory Rate 16 /min 06/15/2024 Blood pressure diastolic 74 mm Hg 08/10/2024 Oximetry 97 % 08/10/2024 Height 70 in 08/10/2024 Blood pressure systolic 124 mm Hg 08/10/2024 Weight 151.5 lbs 08/10/2024 BMI 21.74 kg/m2 08/10/2024 Encounters Encounter Location Date Provider Diagnosis [address] [address] 03/05/2024 Rossi Monroe Agoraphobia with panic attacks F40.01 ; Anxiety F41.9 ; PTSD (post-traumatic stress disorder) F43.10 and ADHD (attention deficit hyperactivity disorder) F90.[address] [address] 03/19/2024 Rossi Monroe Agoraphobia with panic attacks F40.01 ; Depression (emotion) F32.9 ; Anxiety F41.9 ; PTSD (post-traumatic stress disorder) F43.10 and ADHD (attention deficit hyperactivity disorder) F90.[address] [address] 04/21/2024 Rossi Monroe Depression (emotion) F32.9 ; Agoraphobia with panic attacks F40.01 ; Anxiety F41.9 ; PTSD (post-traumatic stress disorder) F43.10 and ADHD (attention deficit hyperactivity disorder) F90.[address] [address] 05/19/2024 Rossi Monroe Depression (emotion) F32.9 ; Agoraphobia with panic attacks F40.01 ; Anxiety F41.9 ; PTSD (post-traumatic stress disorder) F43.10 and ADHD (attention deficit hyperactivity disorder) F90.[address] [address] 06/15/2024 Rossi Monroe Depression (emotion) F32.9 ; ADHD (attention deficit hyperactivity disorder) F90.9 ; Agoraphobia with panic attacks F40.01 ; Anxiety F41.9 and PTSD (post-traumatic stress disorder) F43.[address] [address] 07/09/2024 Rossi Monroe ADHD (attention deficit hyperactivity disorder) F90.9 ; Anxiety F41.9 ; Depression (emotion) F32.9 ; Agoraphobia with panic attacks F40.01 and PTSD (post-traumatic stress disorder) F43.[address] [address] 08/10/2024 Rossi Monroe Anxiety F41.9 ; ADHD (attention deficit hyperactivity disorder) F90.9 ; Depression (emotion) F32.9 ; Agoraphobia with panic attacks F40.01 and PTSD (post-traumatic stress disorder) F43.[address] [address] 09/02/2024 Rossi Monroe [address] [place] [address] 03/05/2024 Becky [place] [address] [address] 03/16/2024 Rossi Monroe [address] [place] [address] 04/17/2024 Rossi Monroe Depression (emotion) F32.[address] [address] 05/19/2024 Rossi Monroe Depression (emotion) F32.[address] [place] [address] 06/04/2024 Rossi Monroe [address] [address] 08/09/2024 Rossi Monroe Assessments Encounter Date Diagnosis (ICD Code) Assessment Notes Treatment Notes Treatment Clinical Notes Section Notes 03/05/2024 Anxiety (ICD-10 - F41.9) Will increase Klonipin to 3x/day 03/05/2024 Agoraphobia with panic attacks (ICD-10 - F40.01) 03/19/2024 Depression (emotion) (ICD-10 - F32.9) 03/19/2024 Agoraphobia with panic attacks (ICD-10 - F40.01) 04/17/2024 Depression (emotion) (ICD-10 - F32.9) 04/21/2024 Depression (emotion) (ICD-10 - F32.9) 05/19/2024 Depression (emotion) (ICD-10 - F32.9) 05/19/2024 Depression (emotion) (ICD-10 - F32.9) 06/15/2024 ADHD (attention deficit hyperactivity disorder) (ICD-10 - F90.9) 06/15/2024 Depression (emotion) (ICD-10 - F32.9) 07/09/2024 Anxiety (ICD-10 - F41.9) 07/09/2024 ADHD (attention deficit hyperactivity disorder) (ICD-10 - F90.9) 08/10/2024 Anxiety (ICD-10 - F41.9) 08/10/2024 ADHD (attention deficit hyperactivity disorder) (ICD-10 - F90.9) 07/09/2024 Depression (emotion) (ICD-10 - F32.9) 06/15/2024 Agoraphobia with panic attacks (ICD-10 - F40.01) 05/19/2024 Agoraphobia with panic attacks (ICD-10 - F40.01) 04/21/2024 Agoraphobia with panic attacks (ICD-10 - F40.01) 03/19/2024 Anxiety (ICD-10 - F41.9) Will increase Klonipin to 3x/day 03/05/2024 PTSD (post-traumatic stress disorder) (ICD-10 - F43.10) 06/15/2024 Anxiety (ICD-10 - F41.9) 04/21/2024 Anxiety (ICD-10 - F41.9) 05/19/2024 Anxiety (ICD-10 - F41.9) 03/19/2024 PTSD (post-traumatic stress disorder) (ICD-10 - F43.10) 03/05/2024 ADHD (attention deficit hyperactivity disorder) (ICD-10 - F90.9) 07/09/2024 Agoraphobia with panic attacks (ICD-10 - F40.01) 08/10/2024 Depression (emotion) (ICD-10 - F32.9) 08/10/2024 Agoraphobia with panic attacks (ICD-10 - F40.01) 06/15/2024 PTSD (post-traumatic stress disorder) (ICD-10 - F43.10) 07/09/2024 PTSD (post-traumatic stress disorder) (ICD-10 - F43.10) 04/21/2024 PTSD (post-traumatic stress disorder) (ICD-10 - F43.10) 05/19/2024 PTSD (post-traumatic stress disorder) (ICD-10 - F43.10) 03/19/2024 ADHD (attention deficit hyperactivity disorder) (ICD-10 - F90.9) 04/21/2024 ADHD (attention deficit hyperactivity disorder) (ICD-10 - F90.9) 05/19/2024 ADHD (attention deficit hyperactivity disorder) (ICD-10 - F90.9) 08/10/2024 PTSD (post-traumatic stress disorder) (ICD-10 - F43.10) Plan Of Treatment No Information Insurance Providers Payer Name Payer Address Payer Phone Subscriber Number Group Number Insured Name Patient Relationship to Insured Coverage Start Date Coverage End Date [employer] [address] [place] [phone] [id number] Ida Ortega Self - patient is the insured 4 [employer] [address] [place] [phone] [id number] Ida Ortega Self - patient is the insured 4 Medical (General) History Surgical History Surgery Date(Month/Year) tonsillectomy and adenoidectomy BILATERAL TUBES IN EARS TUBAL Hospitalization History Reason Date(Month/Year)
--- OUTSIDE RECORDS SUMMARY | 2024-09-02 15:08 | XMS_ITS | Encounter Summary ---
Author Organization [facility] Address [address] [place] [address] Care Team Providers Care Survey Analyst Name Role Phone Eren Wade MD Primary Care Provider [phone] Encounter Details Date Type Department Care Team (Late st Contact Info) Description 10/19/2005 Outpatient Historical [facility] Maternal and Ground [facility] [address] [place] [id number] Corey Patel MD [address] [facility] [address] [place] [address] Social History Tobacco Use Types Packs/Day Years Used Date Smoking Tobacco: Never Assessed Comments Unknown Sex and Gender Information Value Date Recorded Sex Assigned at Not on file Legal Sex Female 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 [address] PCP - General Family Practice 07/19/22 documented as of this encounter
--- OUTSIDE RECORDS SUMMARY | 2024-09-02 15:08 | XMS_ITS | Data Portability ---
Author Organization [place] - [facility] [place] [facility] - [facility] Address [address] [place] [address] Assessment Encounter Date Assessment Date Assessment LastModified by Organization Details LastModified Time 01/04/2021 01/04/2021 35 years old female came with her mom with the c/o generalized body weakness, numbness/tingl ing in hands/fingers, tachycardia, since the time she had extensive cosmetic surgery of abdominal/tors o liposuction and buttock lift done 2 weeks ago in [place]. According to mom, patient's Hb was 13.6, came down to 6.9 after surgery- had 2 units of blood transfused after the surgery. Patient was discharged home with Hb of 8.2. Plan as given below. [email or web address] Not available 01/04/2021 17:35:19 01/18/2021 01/18/2021 35 years old female came today for the follow up visit 3to 4 weeks post extensive cosmetic surgery of abdominal/tors o liposuction and buttock lift done in [place]. Patient's Hb was 13.6 before surgery, came down to 6.9 after surgery- had 2 units of blood transfused in the hospital- discharged with Hb of 8.2. Patient has been on iron supplement daily. Hb was 8.8 2 weeks ago at her last clinic visit- now raised to 11.5 today. Patient is feeling much better with pain almost resolved completely. Plan as given below. [email or web address] Not available 01/18/2021 15:26:09 Plan of Treatment Reminders Order Date Submit Date Provider Last Modified By Organization Details Last Modified Time Details Appointments None recorded. Lab hemoglobin (Hb), fingerstick , blood 2020 021 SAY [facility], [address] [place], [address], 15:28:06 hemoglobin (Hb), fingerstick , blood 2020 [email or web address] [facility], [address] [place], [address], 15:18:51 drug screen, urine 2020 [email or web address] [facility], [address], [place], [address], 14:30:47 hemoglobin (Hb), fingerstick , blood 2020 ridrees [facility], [facility], [place], [address], 15:25:58 hemoglobin (Hb), fingerstick , blood 2020 ridrees [facility], [address], [place], [address], 16:43:23 hemoglobin (Hb), fingerstick , blood 2020 [facility], [address], [place], [address], 14:53:31 Referral hematologis t referral 2020 [email or web address] Not available 11:58:47 Procedures None recorded. Surgeries None recorded. [facility], [address], [place], [address], 16:14:35 Medication Orders clonazepam 1 mg tablet 2020 021 SAY [facility], [address] [place] [address]. [place], [address], 09:33:00 cyclobenzap rine 5 mg tablet 2020 021 [email or web address] 645 [facility], [address] [place] [address]. [place], [address], 14:11:24 oxycodone 5 mg tablet 2020 021 [email or web address] [facility], [address] [place] [address]. [place], [address], 14:27:40 Patient Targets Encounter Date Encounter Id Patient Goals Patient Target Last Modified By Organization Details Last Modified Time 01/04/2021 [id number] nursing home goal of BMI 24 Not available Not available Not available Blood Pressure Not available Not available Not available 01/18/2021 [id number] nursing home goal of BMI 24 Not available Not available Not available Blood Pressure Not available Not available Not available Patient Instructions Encounter Date Encounter Id Patient Instructions Last Modified By Organization Details Last Modified Time 12/13/2020 [id number] Pt. is medically cleared for her upcoming procedure scheduled for 12/23/20. [email or web address] Not available 12/13/2020 14:56:16 01/02/2021 [id number] learning about healthy weight Not available 01/02/2021 14:53:31 eating healthy foods: care instructions Not available 01/02/2021 14:53:31 anemia: care instructions Not available 01/02/2021 14:53:31 Treatment option s and plan discussed with the patient. all questions answered. Patient agrees to comply with the plan as directed and follow up as recommended. Return to the clinic as scheduled or PRN. Report to ER with any emergencies. Patient verbalized understanding and agreement Not available 01/02/2021 15:55:59 01/04/2021 [id number] Continue present management. Take medications regularly. Keep all doctors appointments. Life style modifications with healthy diet and regular exercise as tolerated. Patient verbalized understanding and agreed with the plan. ridrees Not available 01/04/2021 17:35:53 35 years old female came with her mom with the c/o generalized body weakness, numbness/tingling in hands/fingers, tachycardia, since the time she had extensive cosmetic surgery of abdominal/torso liposuction and buttock lift done 2 weeks ago in [place]. According to mom, patient's Hb was 13.6, came down to 6.9 after surgery- had 2 units of blood transfused after the surgery. Patient was discharged home with Hb of 8.2. Plan as given below. ridrees Not available 01/04/2021 17:35:32 01/18/2021 [id number] Continue present management. Take medications regularly. Keep all doctors appointments. Life style modifications with healthy diet and regular exercise as tolerated. Patient verbalized understanding and agreed with the plan. ridrees Not available 01/18/2021 15:19:10 35 years old female came today for the follow up visit 3to 4 weeks post extensive cosmetic surgery of abdominal/torso liposuction and buttock lift done in [place]. Patient's Hb was 13.6 before surgery, came down to 6.9 after surgery- had 2 units of blood transfused in the hospital- discharged with Hb of 8.2. Patient has been on iron supplement daily. Hb was 8.8 2 weeks ago at her last clinic visit- now raised to 11.5 today. Patient is feeling much better with pain almost resolved completely. Plan as given below. ridrees Not available 01/18/2021 15:26:20 01/31/2021 [id number] learning about healthy weight [email or web address] Not available 01/31/2021 14:30:47 eating healthy foods: care instructions [email or web address] Not available 01/31/2021 14:30:47 Reason for Referral Referring Physician: Hollie Duarte, Family Medicine, Encounter Date: 01/02/2021 Results Created Date Observation Date Name Description Value Unit Range Abnormal Flag Note LastModifiedBy Organization Detail LastModifiedTime 01/03/20 21 01/02/2021 hemog lobin (Hb), finge rstic k, blood HGB 8.7 Not Available [facility] [address] [place], [address], 01/02/2021 14:13:59 01/05/20 21 01/04/2021 hemog lobin (Hb), finge rstic k, blood HGB 8.8 Not Available [facility] [address] [place], [address], 01/04/2021 16:43:10 01/19/20 21 01/18/2021 hemog lobin (Hb), finge rstic k, blood HGB 11.5 Not Available [facility] [address] [place], [address], 01/18/2021 15:24:13 02/01/20 21 01/31/2021 hemog lobin (Hb), finge rstic k, blood HGB 11.5 Not Available [facility] [address] [place], [address], 01/31/2021 14:32:38 02/01/20 21 01/31/2021 hemog lobin (Hb), finge rstic k, blood HGB 11.5 Not Available [facility] [address] [place], [address], 01/31/2021 14:37:21 02/01/20 21 01/31/2021 drug scree n, urine Amphetamines : negati ve Not Available [facility] [address] [place], [address], 01/31/2021 14:18:24 02/01/20 21 01/31/2021 drug scree n, urine Cannabinoids : negati ve Not Available [facility] [address] [place], [address], 01/31/2021 14:18:24 02/01/20 21 01/31/2021 drug scree n, urine Cocaine: negati ve Not Available [facility] [address] [place], [address], 01/31/2021 14:18:24 02/01/20 21 01/31/2021 drug scree n, urine Opiates: negati ve Not Available [facility] [address] [place], [address], 01/31/2021 14:18:24 02/01/20 21 01/31/2021 drug scree n, urine Phenocyclidi ne: negati ve Not Available [facility] [address], [place], [address], 01/31/2021 14:18:24 02/01/20 21 01/31/2021 drug scree n, urine Barbiturates : negati ve Not Available [facility] [address], [place], [address], 01/31/2021 14:18:24 02/01/20 21 01/31/2021 drug scree n, urine Benzodiazepi casey: positi ve Not Available [facility] [address], [place], [address], 01/31/2021 14:18:24 12/14/19 21 01/15/2021 roberto rasheed am No observ ation record ed. [email or web address] [facility] [address], [place], [address], 01/15/2021 19:41:10 12/14/1912/13/2020 elect bryce rasheed am No observ ation record ed. BARCODE [facility] [address], [place], [address], 12/13/2020 16:14:35 12/15/19 roberto rasheed am No observ ation record ed. [email or web address] [facility] [address], [place], [address], 12/14/2020 08:34:10 Result Notes None recorded. Problems Name Problem SNOMED Code Status Onset Date Resolution Date Notes Provider Name and Address Organization Details Recorded Time Chronic post-tra umatic stress disorder 609341641 [facility] 08:[facility]:08 Anxiety 21624917 Active 2019 [facility] 08:36:14 Posttrau matic stress disorder 62646400 Active 2019 PELON APARICIO APRN [address], [place], [address], [facility] 0 09:38:41 Pain of left hand 87960130233 9103 Active 2019 PELON APARICIO APRN [address], [address], [place], [address], [facility] 0 09:38:52 Upset stomach 518759848 Active 2019 PELON APARICIO APRN [address], [address], [place], [address], [facility] 0 09:38:53 Body mass index 20-24 - normal 358530622 Active 2019 PELON APARICIO APRN [address], [address], [place], [address], [facility] 0 18:32:40 Mixed anxiety and depressi ve disorder 765086026 Active 2020 [facility] 15:26:20 Chronic migraine without aura 22221910518 4105 Active 2020 George Romana null, [facility] 1 15:26:23 Anemia 688418572 Completed 202012/12/2020 Hill Givens null, [facility] 1 19:42:44 Chronic neck pain 46548422214 07 Active [address], [address], [place], [address] [place] [address], [facility] 10:49:51 Migraine with aura 3941860 Active 2020 [facility], [address], [address], [place], [address] [place] [address], [facility] 08:46:46 Hyperlip idemia 05867529 Active [address], [address], [place], [address] [place] [address], [facility] 08:50:33 Prolapse d cervical interver tebral disc 500904857 Active 2020 Britany Momo, [address], [address], [place], [address] [place] [address], [facility] 08:53:54 Tinea pedis 7172741 Completed 202012/12/2020 Hill Givens null, [facility] 1 19:43:21 Dysuria 91291176 Completed 202012/12/2020 Hill Givens null, [facility] 1 19:43:07 Vaginiti s 05621507 Active 2020 Dalia Stephen APRN [address], [address], [place], [address] [place] [address], [facility] 1 17:55:03 Pharyngi tis 239195884 Completed 202012/12/2020 Hill Givens null, [facility] 19:43:13 Trichomo nal vaginiti s 865487488 Active 2020 Dalia Stephen, PROJECT MANAGER/DESIGN MANAGER [address], [address], [place], [address], [facility] 1 11:30:33 Chlamydi al infectio n 099170048 Active 2020 Dalia Zafar, PROJECT MANAGER/DESIGN MANAGER [address], [address], [place], [address], [facility] 1 11:30:37 Body mass index 25-29 - overweig ht 846802974 Active 2020 [facility] 09:52:06 Anemia followin g acute postoper ative blood loss 97009423256 832292 Active 2020 Juan Barr, [facility] [address], [address], [place], [address], [facility] 14:32:33 Problem Notes None recorded. Procedures Surgical History Date Name Laterality Status Provider Name and Address Organization Details Recorded Time 02/01/20 21 HEDIS- MEDICATION LIST DOCU IN MED REC - 1159F completed [facility] 01/31/2021 14:09:56 02/01/20 21 HEDIS - AWV - Pain - No Pain Present - 1126f completed [facility] 01/31/2021 14:10:00 02/01/20 21 HEDIS - AWV - Blood Pressure < 130 Systolic - 3074f [facility] 01/31/2021 14:11:15 02/01/20 21 HEDIS - AWV - Blood Pressure < 80 Diastolic - 3078f completed [facility] 01/31/2021 14:11:16 02/01/20 21 HEDIS - BMI High - Must Have Plan of Care - Medicare - G8417 [facility] 01/31/2021 14:09:59 02/01/20 21 HEDIS Tobacco Screening Negative for Smoking - 1036F completed [facility] 01/31/2021 14:09:57 01/19/20 21 HEDIS - AWV - MEDICATION - LIST IN MEDICAL RECORDS REVIEWED - G8427 completed [facility] 01/18/2021 14:16:01 01/19/20 21 HEDIS- MEDICATION LIST DOCU IN MED REC - 1159F completed [facility] 01/18/2021 14:15:54 01/19/20 21 HEDIS Pain - AWV - Pain Present Severity Quantified - 1125F completed [facility] 01/18/2021 14:16:27 01/19/20 21 HEDIS - AWV - Blood Pressure < 130 Systolic - 3074f completed [facility] 01/18/2021 14:16:16 01/19/20 21 HEDIS - AWV - Blood Pressure < 80 Diastolic - 3078f completed [facility] 01/18/2021 14:16:21 01/19/20 21 HEDIS - BMI High - Must Have Plan of Care - Medicare - G8417 completed [facility] 01/18/2021 14:16:06 01/19/20 21 HEDIS - AWV - REVIEW OF MEDICATION DOCU IN MED REC -1160F completed [facility] 01/18/2021 14:15:59 01/03/20 21 HEDIS- MEDICATION LIST DOCU IN MED REC - 1159F completed [facility] 01/02/2021 14:08:10 01/03/20 21 HEDIS Pain - AWV - Pain Present Severity Quantified - 1125F completed [facility] 01/02/2021 14:08:22 01/03/20 21 HEDIS - AWV - Blood Pressure > or Equal to 140 Systolic - 3077f completed [facility] 01/02/2021 14:07:47 01/03/20 21 HEDIS - AWV - Blood Pressure > or = to 90 Diastolic - 3080f completed [facility] 01/02/2021 14:07:52 01/03/20 21 HEDIS - BMI High - Must Have Plan of Care - Medicare - G8417 completed [facility] 01/02/2021 14:07:34 01/03/20 21 HEDIS Tobacco Screening Negative for Smoking - 1036F completed Melina Ragsdale [facility] 01/02/2021 14:07:37 12/14/19 21 HEDIS - AWV - MEDICATION - LIST IN MEDICAL RECORDS REVIEWED - G8427 completed [facility] 12/13/2020 14:21:59 12/14/19 21 HEDIS - AWV - Pain - No Pain Present - 1126f completed [facility] 12/13/2020 14:22:07 12/14/19 21 HEDIS - AWV - Blood Pressure < 130 Systolic - 3074f completed [facility] 12/13/2020 14:23:39 12/14/19 21 HEDIS - AMV - Blood Pressure 80 - 89 ( <90 ) Diastolic - 3079f completed [facility] 12/13/2020 14:23:44 12/14/19 21 HEDIS - BMI High - Must Have Plan of Care - Medicare - G8417 completed [facility] 12/13/2020 14:21:48 12/14/19 21 HEDIS Tobacco Screening Negative for Smoking - 1036F completed [facility] 12/13/2020 14:21:54 12/14/19 21 HEDIS - AWV - REVIEW OF MEDICATION DOCU IN MED REC -1160F completed [facility] 12/13/2020 14:22:03 11/01/19 21 HEDIS- MEDICATION LIST DOCU IN MED REC - 1159F completed [facility] 10/31/2020 08:33:54 11/01/19 21 HEDIS - AWV - Pain - No Pain Present - 1126f completed [facility] 10/31/2020 08:34:12 11/01/19 21 HEDIS - AWV - Blood Pressure < 130 Systolic - 3074f completed [facility] 10/31/2020 08:34:18 11/01/19 21 HEDIS - AWV - Blood Pressure < 80 Diastolic - 3078f [facility] 08:34:20 11/01/19 21 HEDIS - BMI High - Must Have Plan of Care - Medicare - G8417 [facility] 08:34:30 11/01/19 21 HEDIS Tobacco Screening Negative for Smoking - 1036F completed [facility]/2020 08:33:57 09/22/19 21 HEDIS - AWV - MEDICATION - LIST IN MEDICAL RECORDS REVIEWED - G8427 [facility] 10:45:04 09/22/19 21 HEDIS Pain - AWV - Pain Present Severity Quantified - 1125F completed [facility]/2020 10:45:10 09/22/19 21 HEDIS - AWV - Blood Pressure < 130 Systolic - 3074f [facility]/2020 10:45:19 09/22/19 21 HEDIS - AWV - Blood Pressure < 80 Diastolic - 3078f [facility]/2020 10:45:22 09/22/19 21 HEDIS - BMI High - Must Have Plan of Care - Medicare - G8417 [facility] 09/21/2020 10:45:15 09/22/19 21 HEDIS Tobacco Screening Negative for Smoking - 1036F completed [facility] 09/21/2020 10:45:07 09/15/19 21 HEDIS - AWV - MEDICATION - LIST IN MEDICAL RECORDS REVIEWED - G8427 [facility] 09:35:19 09/15/19 21 HEDIS - AWV - Blood Pressure < 130 Systolic - 3074f [facility]/14/2020 09:35:27 09/15/19 21 HEDIS - AWV - Blood Pressure < 80 Diastolic - 3078f [facility] 09/14/2020 09:35:21 09/15/19 21 HEDIS - BMI High - Must Have Plan of Care - Medicare - G8417 completed Yovana Mojica [facility] 09/14/2020 09:35:49 09/15/19 21 HEDIS Tobacco Screening Negative for Smoking - 1036F completed Yovana Mojica [facility] 09/14/2020 09:35:24 09/13/19 21 HEDIS- MEDICATION LIST DOCU IN MED REC - 1159F completed Trevin Alvaro [facility] 09/12/2020 12:17:56 09/13/19 21 HEDIS Pain - AWV - Pain Present Severity Quantified - 1125F completed [facility] 09/12/2020 12:18:01 09/13/19 21 HEDIS - AWV - Blood Pressure < 130 Systolic - 3074f completed [facility] 09/12/2020 12:19:17 09/13/19 21 HEDIS - AWV - Blood Pressure < 80 Diastolic - 3078f [facility] 09/12/2020 12:19:19 09/13/19 21 HEDIS Tobacco Screening Negative for Smoking - 1036F completed [facility] 09/12/2020 12:17:58 09/13/19 21 HEDIS - BMI WITHIN NORMAL PARAMETERS - G8420 [facility] 09/12/2020 12:18:03 09/08/19 21 HEDIS - AWV - MEDICATION - LIST IN MEDICAL RECORDS REVIEWED - G8427 completed Dalia Stephen PROJECT MANAGER/DESIGN MANAGER [address], [address], [place], [address], [facility] 09/07/2020 18:01:21 09/08/19 21 HEDIS- MEDICATION LIST DOCU IN MED REC - 1159F completed Dalia Stephen PROJECT MANAGER/DESIGN MANAGER [address], [address], [place], [address], [facility] 09/07/2020 18:01:12 09/08/19 21 HEDIS - AWV - Blood Pressure < 130 Systolic - 3074f venkat Sosa [facility] 09/07/2020 17:15:47 09/08/19 21 HEDIS - AWV - Blood Pressure < 80 Diastolic - 3078f completed Guylene [facility] 09/07/2020 17:15:50 09/08/19 21 HEDIS Tobacco Screening Negative for Smoking - 1036F completed Jose [facility] 09/07/2020 17:15:55 09/08/19 21 HEDIS - AWV - REVIEW OF MEDICATION DOCU IN MED REC -1160F completed Dalia Stephen APRN [address], [address], [place], [address], [facility] 09/07/2020 18:01:16 09/08/19 21 HEDIS - BMI WITHIN NORMAL PARAMETERS - G8420 completed Jose [facility] 09/07/2020 17:15:45 07/28/19 21 HEDIS- MEDICATION LIST DOCU IN MED REC - 1159F completed Trevin [facility] 07/27/2020 08:18:03 07/28/19 21 HEDIS Pain - AWV - Pain Present Severity Quantified - 1125F completed [facility] 07/27/2020 08:18:09 07/28/19 21 HEDIS - AWV - Blood Pressure < 130 Systolic - 3074f completed [facility] 07/27/2020 08:18:05 07/28/19 21 HEDIS - AMV - Blood Pressure 80 - 89 ( <90 ) Diastolic - 3079f [facility] 07/27/2020 08:19:56 07/28/19 21 HEDIS Tobacco Screening Negative for Smoking - 1036F completed [facility] 07/27/2020 08:18:12 07/28/19 21 HEDIS - BMI WITHIN NORMAL PARAMETERS - G8420 completed PRICILA Mina [address], [place], [address], [facility] 07/27/2020 12:41:19 07/20/19 21 HEDIS - AWV - Blood Pressure < 130 Systolic - 3074f completed Zeferino Hercules [facility] 07/19/2020 08:22:25 07/20/19 21 HEDIS - AWV - Blood Pressure < 80 Diastolic - 3078f completed Zeferino Hercules [facility] 07/19/2020 08:22:31 04/27/20 21 HEDIS - BMI High - Must Have Plan of Care - Medicare - G8417 completed Zeferino Hercules [facility] 021 08:22:51 07/20/19 21 HEDIS Tobacco Screening Negative for Smoking - 1036F completed Zeferino Hercules [facility] 07/20/19 21 08:22:55 06/10/19 21 HEDIS- MEDICATION LIST DOCU IN MED REC - 1159F completed [facility] 06/09/2020 10:20:50 06/10/19 21 HEDIS Pain - AWV - Pain Present Severity Quantified - 1125F completed [facility] 06/09/2020 10:28:16 06/10/19 21 HEDIS - AWV - Blood Pressure < 130 Systolic - 3074f completed [facility] 06/09/2020 10:28:01 06/10/19 21 HEDIS - AWV - Blood Pressure < 80 Diastolic - 3078f completed [facility] 06/09/2020 10:28:07 06/10/19 21 HEDIS Tobacco Screening Positive for Smoking - 1034F completed [facility] 06/09/2020 10:28:25 06/10/19 21 HEDIS - BMI WITHIN NORMAL PARAMETERS - G8420 completed PRICILA Mina [address], [address], [place], [address], [facility] 06/09/2020 10:33:23 06/02/19 21 HEDIS - AWV - MEDICATION - LIST IN MEDICAL RECORDS REVIEWED - G8427 cancelled Corie Jeffers PROJECT MANAGER/DESIGN MANAGER [address], [address], [place], [address], [facility] 06/01/2020 00:06:50 06/02/19 21 HEDIS Clinical Breast Exam cancelled Corie Jeffers PROJECT MANAGER/DESIGN MANAGER [address], [address], [place], [address], [facility] 06/01/2020 00:06:42 06/02/19 21 HEDIS Pap Smear Cervical Cancer Screening Documented Every 3 Yrs Age 30 - 65 cancelled Corie Jeffers APRN [address], [address], [place], [address], [facility] 06/01/2020 00:06:37 04/21/19 21 HEDIS- MEDICATION LIST DOCU IN MED REC - 1159F completed Chrissie On license of [facility] 04/21/2020 14:58:29 04/21/19 21 HEDIS - AWV - Blood Pressure > or Equal to 140 Systolic - 3077f completed [facility] 04/21/2020 14:59:02 04/21/19 21 HEDIS - AMV - Blood Pressure 80 - 89 ( <90 ) Diastolic - 3079f completed [facility] 04/21/2020 14:59:09 04/21/19 21 HEDIS - AWV - REVIEW OF MEDICATION DOCU IN MED REC -1160F completed George Avendano [facility] 06:41:52 04/08/19 21 HEDIS - AWV - MEDICATION - LIST IN MEDICAL RECORDS REVIEWED - G8427 completed [address], [place], [address], [facility] 04/08/2020 13:46:10 04/08/19 21 HEDIS - AWV - Pain - No Pain Present - 1126f completed [address], [place], [address], [facility] 04/08/2020 13:46:04 04/08/19 21 HEDIS - AWV - Blood Pressure > or Equal to 140 Systolic - 3077f completed [address], [address], [place], [address], [facility] 04/08/2020 13:45:49 04/08/19 21 HEDIS - AWV - Blood Pressure > or = to 90 Diastolic - 3080f completed [facility] [address], [address], [place], [address], [facility] 04/08/2020 13:45:55 04/08/19 21 HEDIS Tobacco Screening Negative for Smoking - 1036F completed [address], [place], [address], [facility] 04/08/2020 13:46:16 04/08/19 21 HEDIS - BMI WITHIN NORMAL PARAMETERS - G8420 completed Salvador Arzate [address], [place], [address], [facility] 04/08/2020 13:45:59 11/05/19 20 HEDIS - AWV - MEDICATION - LIST IN MEDICAL RECORDS REVIEWED - G8427 completed [facility] 11/05/2019 08:41:50 11/05/19 20 HEDIS Pain - AWV - Pain Present Severity Quantified - 1125F completed [facility] 11/05/2019 08:41:59 11/05/19 20 HEDIS - AWV - Blood Pressure < 130 Systolic - 3074f [facility] 11/05/2019 08:41:42 11/05/19 20 HEDIS - AWV - Blood Pressure < 80 Diastolic - 3078f [facility] 11/05/2019 08:41:40 11/05/19 20 HEDIS Tobacco Screening Positive for Smoking - 1034F completed [facility], [place], [address], [facility] 11/05/2019 09:41:44 11/05/19 20 HEDIS - BMI WITHIN NORMAL PARAMETERS - G8420 completed [facility] 11/05/2019 08:42:30 11/05/19 20 HEDIS - AWV - PHQ9 POSITIVE CLINICAL DEPRESSION SCREEN w/FOLLOW UP Plan - G8431 completed [facility] [address], [place], [address], [facility] 11/05/2019 09:42:14 11/22/19 19 Date of Last Pap Smear [facility] 11/05/2019 08:37:21 Tonsillectomy completed [facility] 11/05/2019 08:41:12 Imaging Results None recorded. Procedure Notes None recorded. Medical Equipment None Reported. Allergies Allergen ID Allergen Name Allergen Category Reaction Reaction Severity Criticality Documentation Date Start Date Code Code System Note Provider Name and Address Organization Details Recorded Time 487197 Substance with sulfonami de structure and antibacte rial mechanism of action (substanc e) medicatio n hives Not available Not available 11/05/2019 86970 8003 SNOMED Rubi Qu[facility]o [facility], [facility] 0 08:34:31 700900 Tylenol medicatio n hives severe Not available 01/02/202184494 3 RxNorm Melina Stowbridg e [facility] 14:04:23 836907 tramadol medicatio n hives severe Not available 01/02/2021 86808 RxNorm Melina Stowbridg e [facility] 14:04:44 Medications Name Sig Start Date Stop Date Status Note LastModified by Organization Details LastModified Time cyclobenzap rine 10 mg tablet TAKE 1 TABLET BY MOUTH THREE TIMES A DAY NEEDED FOR MUSCLE SPASMS 01/31 completed Not Available Not Available Not Available nystatin 100,000 unit/mL oral suspension Take 5 mL 4 times a day by oral route. 10/31 completed Not Available Not Available Not Available azithromyci n 250 mg tablet TAKE 2 TABLETS (500 MG) BY ORAL ROUTE ONCE DAILY FOR 1 DAY THEN 1 TABLET (250 MG) BY ORAL ROUTE ONCE DAILY FOR 4 DAYS 10/31 completed Not Available Not Available Not Available ibuprofen 800 mg tablet Take 1 tablet 3 times a day by oral route with meals for 14 days. 12/13 completed Not Available Not Available Not Available fluconazole 150 mg tablet TAKE 1 TABLET BY MOUTH EVERY DAY NEEDED YEAST 01/31 completed Not Available Not Available Not Available ondansetron HCl 4 mg tablet TAKE 1 TABLET BY MOUTH EVERY 6 HOURS NEEDED FOR NAUSEA AND VOMITING active Not Available Not Available No t Available sertraline 100 mg tablet Take 1 tablet every day by oral route for 90 days. 09/12 completed Not Available Not Available Not Available prednisone 5 mg tablet Take 1 tablet every day by oral route for 7 days. 10/31 completed Not Available Not Available Not Available clonazepam 1 mg tablet TAKE 1 TABLET BY MOUTH 2 TIMES A DAY 2020 active Not Available Not Available Not Avai lable sumatriptan 50 mg tablet Take 1 tablet at onset of headache, and repeat 2 hours later if headache persists 01/31 completed Not Available Not Available Not Available metronidazo le 500 mg tablet Take 1 tablet twice a day by oral route for 7 days. 09/21 completed Not Available Not Available Not Available tramadol 50 mg tablet TAKE 1 TABLET BY MOUTH EVERY 4 HOURS NEEDED FOR PAIN 01/02 completed Not Available Not Available Not Available methocarbam ol 750 mg tablet Take 1 tablet 3 times a day by oral route as needed for 30 days. 09/12 completed Not Available Not Available Not Available baclofen 10 mg tablet TAKE 1 TABLET BY MOUTH 3 TIMES A DAY FOR 10 DAYS 07/19 completed Not Available Not Available Not Available cephalexin 500 mg capsule TAKE 1 CAPSULE BY MOUTH EVERY 12 HOURS 01/18 completed Not Available Not Available Not Available gabapentin 300 mg capsule TAKE 1 CAPSULE BY MOUTH THREE TIMES A DAY 01/31 completed Not Available Not Available Not Available epinephrine 0.3 mg/0.3 mL injection, auto-inject or Take 1 auto by injection route as needed. active Not Available Not Available No t Available Pepcid 20 mg tablet Take 1 tablet 3 times a day by oral route before meals. 04/08 completed Not Available Not Available Not Available ketoconazol e 2 % topical cream APPLY TO THE AFFECTED AREA(S) BY TOPICAL ROUTE ONCE DAILY 10/31 completed Not Available Not Available Not Available ondansetron 4 mg disintegrat ing tablet 07/19 completed Not Available Not Available Not Available amoxicillin 875 mg-potassiu m clavulanate 125 mg tablet Take 1 tablet every 12 hours by oral route for 14 days. 09/07 completed Not Available Not Available Not Available oxycodone 5 mg tablet Take 2 tablets every 4 hours by oral route for 3 days. 01/31 completed Not Available Not Available Not Available azithromyci n 500 mg tablet Take 2 tablets every day by oral route for 1 day. 09/21 completed Not Available Not Available Not Available cyclobenzap rine 5 mg tablet TAKE ONE TABLET BY MOUTH THREE TIMES DAILY NEEDED FOR 7 DAYS. 01/31 completed Not Available Not Available Not Available ProAir HFA 90 mcg/actuati on aerosol inhaler Inhale 2 puffs every 4 hours by inhalatio n route as needed for 30 days. active Not Available Not Available No t Available Linzess 145 mcg capsule Take 1 capsule every day by oral route as needed for 30 days. 01/31 completed Not Available Not Available Not Available Femynor 0.25 mg-35 mcg tablet TAKE 1 TABLET BY MOUTH EVERY DAY active Not Available Not Available No t Available Vitals Date Recorded Body height Respiratory rate Body mass index (BMI) Body weight Heart rate Oxygen saturation Oxygen saturation in Arterial blood by Pulse oximetry Body temperature Systolic blood pressure Diastolic blood pressure Provider Name and Address Organization Details Last Updated DateTime 170.18 cm 16 /min 26.2 kg/m2 95489.9 3 g 92 /min 99 % 99 % 97 [degF] 110 mm[Hg] 80 mm[Hg] [facility] 14[facility]29 Date Recorded Body height Body mass index (BMI) Body weight Heart rate Heart rate Body temperature Oxygen saturation Oxygen saturation in Arterial blood by Pulse oximetry Respiratory rate Systolic blood pressure Diastolic blood pressure Systolic blood pressure Diastolic blood pressure Provider Name and Address Organization Details Last Updated DateTime 1 170.18 cm 29.3 kg/m2 26292.7 7 g 115 /min 117 /min 99.1 [degF] 98 % 98 % 18 /min 70 mm[Hg] 40 mm[Hg] 157 mm[Hg] 102 mm[Hg] Melina mendoza [facility] 1 14:03:48 Date Recorded Body height Body mass index (BMI) Body weight Heart rate Body temperature Oxygen saturation Oxygen saturation in Arterial blood by Pulse oximetry Respiratory rate Systolic blood pressure Diastolic blood pressure Provider Name and Address Organization Details Last Updated DateTime 1 170.18 cm 29.3 kg/m2 18411.7 7 g 78 /min 99.8 [degF] 100 % 100 % 18 /min 117 mm[Hg] 72 mm[Hg] Alicia Bui [facility] 1 15:05:17 Date Recorded Body height Body mass index (BMI) Body weight Heart rate Respiratory rate Oxygen saturation Oxygen saturation in Arterial blood by Pulse oximetry Body temperature Systolic blood pressure Diastolic blood pressure Provider Name and Address Organization Details Last Updated DateTime 1 170.18 cm 27.7 kg/m2 76595.4 1 g 69 /min 18 /min 98 % 98 % 97.5 [degF] 110 mm[Hg] 78 mm[Hg] Sivan Carrasco [facility] 1 14:14:10 Date Recorded Body height Body mass index (BMI) Body weight Heart rate Body temperature Oxygen saturation Oxygen saturation in Arterial blood by Pulse oximetry Respiratory rate Systolic blood pressure Diastolic blood pressure Provider Name and Address Organization Details Last Updated DateTime 1 170.18 cm 27.7 kg/m2 11125.8 5 g 81 /min 97.8 [degF] 100 % 100 % 16 /min 121 mm[Hg] 78 mm[Hg] Trevin John [facility] 1 14:11:36 Social History Question Answer Notes LastModified by Organizat ion Details LastModified Time Tobacco Smoking Status Former Smoker PELON APARICIO, MIGUELITO [address] [facility], [address], [address], [facility] 11/05/2019 09:34:12 Do You Have An Advance Directive? No Information not available 11/05/2019 Is Your Home Air Conditioned? Yes [email or web address] Information not available 09/07/2020 Do You Have A Basement? No [email or web address] Information not available 09/07/2020 Do You Wear A Helmet When Biking? No [email or web address] Information not available 09/07/2020 Are You Blind Or Do You Have Difficulty Seeing? No [email or web address] Information not available 06/09/2020 What Is Your Level Of Caffeine Consumption? Moderate [email or web address] Information not available 11/05/2019 How Much Tobacco Do You Chew? None Information not available 11/05/2019 In The 14 Days Before Symptom Onset, Have You Had Close Contact With A Laboratory-confir med COVID-19 While That Case Was Ill? No Information not available 06/09/2020 In The 14 Days Before Symptom Onset, Have You Had Close Contact With A Person Who Is Under Investigation For COVID-19 While That Person Was Ill? No Information not available 06/09/2020 Have You Been To An Area Known To Be High Risk For COVID-19? No Information not available 06/09/2020 Are You Deaf Or Do You Have Serious Difficulty Hearing? No [email or web address] Information not available 09/07/2020 What Type Of Diet Are You Following? VEGETARIAN [email or web address] Information not available 11/05/2019 Have You Processed Blood Or Body Fluids From An Ebola Virus Disease Patient Without Appropriate PPE? No Information not available 06/09/2020 Do You Reside In Or Have You Traveled To An Area Where Ebola Virus Transmission Is Active? No Information not available 06/09/2020 Education 12 [email or web address] Information n ot available 11/05/2019 What Is The Highest Grade Or Level Of School You Have Completed Or The Highest Degree You Have Received? [id number] Information not available 09/07/2020 Have There Been Any Changes To Your Family Or Social Situation? No [email or web address] Information no t available 11/05/2019 What Is The Fluoride Status Of Your Home? Non-fluoridate d [email or web address] Information not available 09/07/2020 When Did You Quit Smoking? 6-10yearssince lastcigarette [place] Information not available 01/02/2021 Are There Any Guns Present In Your Home? No Information not available 09/07/2020 Hard Of Hearing Or Deaf In One Or Both Ears? No [email or web address] Information not available 11/05/2019 Do You Have A Humidifier? No [email or web address] Information not available 09/07/2020 Do You Use Insect Repellent Routinely? No [email or web address] Information not available 09/07/2020 Legally Blind In One Or Both Eyes? No [email or web address] Information no t available 11/05/2019 Where Do You Live? Apartment [email or web address] Information not available 09/07/2020 Live Alone Or With Others? Alone [email or web address] Information not available 11/05/2019 Do You Have Moisture Problems In Your Home? No [email or web address] Information not available 09/07/2020 What Was The Date Of Your Most Recent Tobacco Screening? 01/31/2021 Information not available 01/31/2021 How Many Children Do You Have? 1 [email or web address] Information not available 11/05/2019 Do You Have Any Pets? No [email or web address] Information not available 09/07/2020 What Is Your Relationship Status? Single [email or web address] Information not available 11/05/2019 Do You Use Your Seat Belt Or Car Seat Routinely? Yes [email or web address] Information not available 09/07/2020 Are You Sexually Active? Yes Information not available 09/07/2020 Do You Have Smoke And Carbon Monoxide Detectors In Your Home? No [email or web address] Information not available 09/07/2020 Are You Passively Exposed To Smoke? No [email or web address] Information no t available 11/05/2019 Are There Any Smokers In Your House? No [email or web address] Information not available 11/05/2019 How Much Tobacco Do You Smoke? 2 PPD Information not available 11/05/2019 Do You Participate In Social Media? Yes [email or web address] Information not available 09/07/2020 Past Steroid/HgH Use? No [email or web address] Information not available 11/05/2019 General Stress Level Medium Information not available 11/05/2019 Do You Use Sunscreen Routinely? No [email or web address] Information not available 09/07/2020 Has Tobacco Cessation Counseling Been Provided? No [email or web address] Information not available 01/31/2021 How Many Years Have You Smoked Tobacco? 8 Information not available 11/05/2019 Have You Used IV Drugs? No [email or web address] Information not available 06/09/2020 Do You Have Difficulty Walking Or Climbing Stairs? No [email or web address] Information not available 09/07/2020 Sex: Female Functional Status Question Answer Note LastModified by Organization Details LastModified Time Do you or have you ever used smokeless tobacco? 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 No [email or web address] Information not available 09/07/2020 Do you have transportation difficulties? No [email or web address] Information not available 09/07/2020 Are you able to care for yourself? Yes [email or web address] Information not available 06/09/2020 Do you have difficulty dressing or bathing? No [email or web address] Information not available 09/07/2020 Do you or have you ever used e-cigarettes or vape? Never used electronic cigarettes [email or web address] Information not available 11/05/2019 What is your exercise level? Heavy [email or web address] Information not available 11/05/2019 Do you use any illicit or recreational drugs? No Information not available 09/07/2020 Do you or have you ever used any other forms of tobacco or nicotine? No Information not available 09/07/2020 What is your level of alcohol consumption? Occasional [email or web address] Information not available 11/05/2019 Have you been exposed to heavy metals? No [email or web address] Information not available 09/07/2020 Do you have difficulty doing errands alone? No [email or web address] Information not available 09/07/2020 What type of noise exposure are you exposed to? noExposureToExcessiveN oise ejdpeyj24 Information not available 09/07/2020 Mental Status Question Answer Note LastModified by Organizat ion Details LastModified Time Do you feel stressed (tense, restless, nervous, or anxious, or unable to sleep at night)? [id number] [email or web address] Information not available 09/07/2020 Do you have difficulty concentrating, remembering or making decisions? No Information no t available 09/07/2020 Are you or have you been involved with bullying? No [email or web address] Information not available 06/09/2020 Family History Relationship Description Onset Age of this Age Resolved Age Notes LastModified by Organization Details LastModified Time Father No current problems or disability [email or web address] Not available 09/21 10:43:11 Mother No current problems or disability nmortley Not available 09/21 10:43:11 Mother Anemia nmortley Not available 0 09/21/2020 10:43:11 Medical History Condition Response Anemia Y Blood Transfusion Y Gynecological History Statement/Question Response Abnormal Pap N Date of LMP 12/24/2020 Sexually Active? Y STIs/STDs N HPV Vaccine N Date of Last Pap Smear 11/21/2018 Sexual Problems? N Desired Control Method Condoms Obstetrics History GPAL:G 0 P 0 0 0 0 Immunizations Vaccine Type Date Status Note Provider Name and Address Organization Details Recorded Time COVID-19, mRNA, LNP-S, PF, 30 mcg/0.3 mL dose [facility] 14:08:37 COVID-19, mRNA, LNP-S, PF, 30 mcg/0.3 mL dose 1 [facility] 14:08:37 Influenza, split virus, quadrivalent , PF 1 cancelled patient objection Hill Tosha [facility] 04/08/2020 15:58:38 Tdap 1 completed Zeferino Hercules [facility] 07/19/2020 09:39:19 Past Encounters Encounter ID Performer Location Encounter Start Date Encounter Closed Date Diagnosis/Indication Diagnosis SNOMED-CT Code Diagnosis ICD10 Code Diagnosis Note [id number] PELON APARICIO APRN [facility] [address] [place] [address] 11/05/2019 08:22:46 11/05/2019 09:21:19 Body mass index 20-24 - normal 997524163 Z68.20 Upset stomach 598223372 K30 Pain of left hand 352736 2333 50851 M79.642 pt to get hard hand brace to weare at HS and uring day Posttrauma tic stress disorder 50158667 F43.10 eforce reviewed [id number] HILL GIVENS DO [facility] [address] [place] [address] 04/08/2020 13:34:10 04/08/2020 14:35:49 Body mass index 20-24 - normal 602948539 Z68.24 Chronic post-traumatic stress disorder 457552768 F43.12 Treatment options reviewed. Does not desire pharmacoth erapy, and initially was resistant to behavioral health referral. However she states that she will consider this. Have encouraged patient to consider. Migraine with aura 52206 06 G43.109 Treatment options reviewed. Prescripti on for sumatripta n sent to pharmacy. Vaccine de clined by patient 4420107257 02 Z28.21 [id number] George Avendano MD [facility] [address] [place] [address] 04/21/2020 13:57:06 04/21/2020 15:45:45 Mixed anxiety and depressive disorder 655952527 F41.8 34 yo WF pt presents to clinic with c/o of high BP and increased anxiety X 3 weeks. FU with behavioral health as scheduled. Will start on SSRI for all above issues and will not Rx Clonazepam again. Chronic post-traumatic stress disorder 965199938 F43.12 Chronic mi graine without aura 7757238992 37071 G43.709 Screening for malignant neoplasm of cervix 143391578 Z12.4 Patient ne w to provider 0086064921 39690 Z76.89 [id number] PRICILA Mina [facility] [address] [facility] [place] [address] 06/09/2020 09:45:13 06/09/2020 10:59:55 Mixed anxiety and depressive disorder 452536217 F41.8 eforce checked and verified Migraine with aura 10757 06 G43.109 Chronic post-traumatic stress disorder 549792435 F43.12 pt will start therapy tomorrow with a therapist. Chronic mi graine without aura 1818196010 53199 G43.709 cont w/ current mgmt. Body mass index 20-24 - normal 304559102 Z68.20 Anemia 168047687 D64.9 chronic condition since she was a child, has had several blood transfusio n in the past and was following up with hemato in [place] Screening for disorder 685133703 Z13.9 Hepatitis C screening 41 0417963 Z11.59 Chronic neck pain 201574 3280 107 M54.2 HIV screening 547262681 Z11.4 [id number] [facility] [address] [place] [address] 07/19/2020 08:08:39 07/19/2020 08:54:31 Body mass index 25-29 - overweight 346685470 Z68.25 Puncture w ound of foot 17976210 S91.331A RTC if symptoms worsen, change or persist within the next day or two, consider ice 15 mins off/on and ibuprofen with food to help swelling [id number] Hill Fraser MD [facility] [address] [place] [address] 07/27/2020 07:53:35 07/27/2020 09:10:13 Body mass index 20-24 - normal 324312911 Z68.20 Anemia 740234503 D64.9 chronic condition since she was a child, has had several blood transfusio n in the past and was following up with hemato in [place] Chronic neck pain 589135 9854 107 M54.2 MRI report: 1. There is straighten ing of the cervical lordosis. This could be positional or due to muscle spasm. 2. At C3-4, there is a broad-base d disc protrusion . Mild-to-mo derate right and mild left neural foraminal stenosis and mild spinal canal stenosis. 3. At C4-5, there is a mild disc bulge. 4. At C5-6, there is a broad-base d disc protrusion , mild bilateral neural foraminal stenosis and mild spinal canal stenosis. t C6-7, there is a broad-base d disc protrusion and mild spinal canal stenosis. Chronic post-traumatic stress disorder 942155307 F43.12 pt will start therapy tomorrow with a therapist. Chronic mi graine without aura 1989747856 93143 G43.709 cont w/ current mgmt. Adult heal th examination 719492403 Z00.00 labs done previously Prolapsed cervical intervertebral disc 450791364 M50.20 Hyperlipidemia 59839460 E78.5 low carb diet and a minimum of 150 minutes of moderate to high intensity exercise weekly discussed with pt., [id number] Norma Carrasquillo MD [facility] [address] [facility] [address] [place] [address] 09/07/2020 16:32:26 09/07/2020 18:04:42 Tinea pedis 3316955 B35.3 Pharyngitis 492983260 J0 2.9 Vaginitis 07697044 N76.0 Dysuria 52160073 R30.9 [id number] Hill Fraser MD [facility] [address] [place] [address] 09/12/2020 12:02:43 09/12/2020 12:55:02 Body mass index 20-24 - normal 591777795 Z68.20 Pain of left hand 692602 5611 18245 M79.003 [id number] Robert Barrientos MD [facility] [address] [place] [address] 09/14/2020 09:02:19 09/14/2020 10:10:06 Body mass index 25-29 - overweight 874031545 Z68.25 Pain of left hand 649630 5978 35510 M79.642 patient has pain at the base of the 5th. she has history of surgery in this area few years back. she has not done the xray yet and we need that moving forward. [id number] Robert Barrientos MD [facility] [address] [place] [address] 09/21/2020 10:31:44 09/21/2020 12:30:07 Pain of left hand 9712461894 12922 M79.642 patients xrays are normal. pin its in the correct place without any degenerati on. patient needs to use the hand more naturally and not guard it so much so it can regain some strenght. Body mass index 25-29 - overweight 464327682 Z68.26 [id number] Hill Fraser MD [facility] [address] [place] [address] 10/31/2020 08:04:18 10/31/2020 08:56:50 Pain of left hand 9320044182 54514 M79.642 stable Body mass index 25-29 - overweight 593067223 Z68.25 Anxiety 38392732 F41.9 stable w/ current mgmt [id number] HILL GIVENS DO [facility] [address] [place] [address] 12/13/2020 14:08:46 12/13/2020 14:54:50 Pre-surgery evaluation 868485188 Z01.818 Overall normal exam.EKG also normal.Has already had labs and CXR completed and forwarded to surgical group.Will have Covid nasal swab next week [id number] Hill Fraser MD [facility] [address] [place] [address] 01/02/2021 13:41:09 01/02/2021 15:02:17 Body mass index 25-29 - overweight [id number] Z68.25 Pt is noted to have elevated BMI. Advised that healthy BMI level is 24 or less. Measures supported to help maintain healthy BMI are: 1. Daily walking from 30-90 minutes per day 2. Diet high in produce (fruits and vegetable) and low in animal and saturated fats. 3. Minimal to no alcohol intake. 4. Avoid drinks with calories in them. ie: soda, starbucks beverages. 5. Diet high in complex carbs and legumes. ie: 100% whole grain bread, pasta and all beans. 6. Using a fitness tracker to remind of needed activity 7. Use a calorie tracker such as my fitness pal 8. Commit to an exercise program with a partner to remain accountabl e. 9. Weekly weights to monitor changes and adjust plan as needed to maintain ideal body weight. Anemia [id number] D64.9 Continue iron supplement s. Take every other day for better absorption Follow up with hematologi st for further evaluation Postoperat bud complication [id number] T81.9XXS Suspect significan t blood loss during surgeryCon tinue compressio n garmentsNo signs of surgical site infectionr ight buttock wound healing my secondary intention. Send pictures and follow up with surgeonBru ising, swelling, and fatigue are normal after a big surgeryInc rease ambulation Allergy to tylenolLim ited refill of medication s [id number] Anna Summers MD [facility] [address] [facility] [address] 01/04/2021 14:38:37 01/04/2021 17:15:34 Weakness present [id number] M62.81 2/2 meds (oxycodone , gabapentin , Cyclobenza leticia) and anemia. Reassuranc e done for gradual improvemen t of symptoms. Recommende d iron rich foods. Iron defic iency anemia [id number] D50.9 Hb 8.8 by fingerstic k. On daily iron supplement . Hb was 8.2 at the time of hospital discharge 1 week ago- increased to 8.8. Recommende d iron rich foods. Body mass index 25-29 - overweight [id number] Z68.25 Take low fat/low carbohydra te diet and do regular exercise as tolerated. Keep monitoring weight. [id number] Anna Summers MD [facility] [address] [place] [address] 01/18/2021 14:00:33 01/18/2021 15:08:45 Body mass index 25-29 - overweight [id number] Z68.27 27.7 Take low fat/low carbohydra te diet and do regular exercise as tolerated. Keep monitoring weight. Iron defic iency anemia 22319440 D50.9 Hb 11.5 by fingerstic k. On daily iron supplement . Postoperative care [id number] Z48.89 Surgery scars are well healed. [id number] Hill Fraser MD [facility] [address] [place] [address] 01/31/2021 14:06:04 01/31/2021 14:40:30 Body mass index 25-29 - overweight [id number] Z68.25 Anxiety 62812275 F41.9 stable w/ current mgmt Anemia fol lowing acute postoperative blood loss [id number] 8902089 D62 Health Concerns Section Related Observation LastModified by Organization Detai ls LastModified Time None Recorded Concern Status LastModified by Organization Details LastModified Time None Recorded Advance Directives Directive N: Payers Insurance Date Sequence Insurance Name Policy Number Policy Gatica Covered Member ID Gatica Member ID Guarantor Name 01/02/2021 2 [facility] (MEDICAID HMO) Ida Ortega [id number] Ida Ortega 04/30/2021 1 [facility] (MEDICAID REPLACEMENT - HMO) Ida Ortega [id number] Ida Ortega Notes Date Note Type Note Provider Name and Address Organization Details Recorded Time 1 text/html Patient Learning Needs Assessment Pt. presents for pre-surgical eval/clearance. She is scheduled for Liposuction and fat transfer of Buttocks in [place], on 12/23/20. Had CXR yesterday, and plans for Covid Nasal swab/PCR next week. Had all labs/Urine done at [facility] yesterday--results have been forwarded to surgeon in [place]. Presently taking Fe++ suppl., along with Clonazepam for anxiety. No other meds. Non-smoker. Exercises regularly. Area of Content: X Disease Process Equipment Treatment Procedure Medication Barrier to Care: NO Demonstrates Desire to Learn YES Communication Barrier: X None Physical Cognitive Emotional Language Other __ Learning Barriers: X None Language Cultural Beliefs Financial Issues Hearing Impairment Vision Impairment Emotional Barriers Physical Problems Jew Beliefs Low Literacy Learning Problems Disinterested Preferred Teaching Method: X Handout X Discussion Class Video (if available) Demonstration Comments: Hill Givens [facility] 12/13/2020 14:57:18 1 text/html 35 y/o female presents for hospital follow up.[place] Butt Lift and 360 liposuction on 12/23 in [place]. Hgb was 13 prior to surgeryTrans[facility] from surgical sites/stomach.Noted to have hgb around 6. Admitted for a few days, requiring 2 transfusionsWent to local ER a few days ago for severe fatigue and swelling. Hgb was 7.Concern about surgical site infection and discharge. Denies fever, chills. Reports significant swelling, bruising, pain and fatigue since surgery. Known history of anemia. 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 Reports a type of stress activated, reactive anemia where bone marrow shuts down. Disclosed this history to surgeon Patient Learning Needs Assessment Area of Content: x Disease Process Equipment Treatment Procedure Medication Barrier to Care: NO Demonstrates Desire to Learn YES Communication Barrier: x None Physical Cognitive Emotional Language Other Learning Barriers: x None Language Cultural Beliefs Financial Issues Hearing Impairment Vision Impairment Emotional Barriers Physical Problems Mandaeism Beliefs Low Literacy Learning Problems Disinterested Preferred Teaching Method: x Handout x Discussion Class Video (if available) Demonstration Comments: MD Carito Raymundo [facility] Joon Laron, [place], [address], [facility] 01/02/2021 16:06:15 1 text/html Patient Learning Needs Assessment Area of Content: X Disease Process Equipment Treatment Procedure Medication Barrier to Care: NO Demonstrates Desire to Learn YES Communication Barrier: X None Physical Cognitive Emotional Language Other __ Learning Barriers: X None Language Cultural Beliefs Financial Issues Hearing Impairment Vision Impairment Emotional Barriers Physical Problems Jew Beliefs Low Literacy Learning Problems Disinterested Preferred Teaching Method: X Handout X Discussion Class Video (if available) Demonstration Comments: 35 years old female came with her mom with the c/o generalized body weakness, numbness/tingling in hands/fingers, tachycardia, since the time she had extensive cosmetic surgery of abdominal/torso liposuction and buttock lift done 2 weeks ago in [place]. According to mom, patient's Hb was 13.6, came down to 6.9 after surgery- had 2 units of blood transfused after the surgery. Patient was discharged home with Hb of 8.2. Plan as given below. [facility], [place], [address], [facility] 01/04/2021 17:38:49 1 text/html Patient Learning Needs Assessment Area of Content: X Disease Process Equipment Treatment Procedure Medication Barrier to Care: NO Demonstrates Desire to Learn YES Communication Barrier: X None Physical Cognitive Emotional Language Other __ Learning Barriers: X None Language Cultural Beliefs Financial Issues Hearing Impairment Vision Impairment Emotional Barriers Physical Problems Jew Beliefs Low Literacy Learning Problems Disinterested Preferred Teaching Method: X Handout X Discussion Class Video (if available) Demonstration Comments: 35 years old female came today for the follow up visit 3to 4 weeks post extensive cosmetic surgery of abdominal/torso liposuction and buttock lift done in [place]. Patient's Hb was 13.6 before surgery, came down to 6.9 after surgery- had 2 units of blood transfused in the hospital- discharged with Hb of 8.2. Patient has been on iron supplement daily. Hb was 8.8 2 weeks ago at her last clinic visit- now raised to 11.5 today. Patient is feeling much better with pain almost resolved completely. Plan as given below. Anna Summers MD [address] [place], [place] [address]J[place], [address], [facility] 01/18/2021 15:28:14 1 text/html 35 y/o female present for f/u evaluation of her medical conditions, she states feeling much better than previous visit. Has no complaints. Hill Fraser MD [address] [place] [address] [place], [address], [facility] 01/31/2021 15:29:43 OBGyn Episode No OBEpisode recorded.
--- OUTSIDE RECORDS SUMMARY | 2024-09-02 15:08 | XMS_ITS | Encounter Summary ---
Author Organization [facility] Address [address] [place] [address] Care Team Providers Care Oven Equipment Repairer Name Role Phone Eren Wade MD Primary Care Provider [phone] Encounter Details Date Type Department Care Team (Late st Contact Info) Description 11/13/2005 Outpatient Historical [facility] Maternal and Ground Floor [address] [place] [address] Zacarias Melchor MD NO ADDRESS ON FILE Social History Tobacco Use Types Packs/Day Years Used Date Smoking Tobacco: Never Assessed Comments Unknown Sex and Gender Information Value Date Recorded Sex Assigned at Not on file Legal Sex Female 5:19 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 [address] PCP - General Family Practice 07/19/22 documented as of this encounter
--- OUTSIDE RECORDS SUMMARY | 2024-09-02 15:08 | XMS_ITS | Encounter Summary ---
Author Organization [facility] Address [address] [place] [address] Care Team Providers Care Claims Adjuster Crop Name Role Phone Eren Wade MD Primary Care Provider [phone] Encounter Details Date Type Department Care Team (Late st Contact Info) Description 11/23/2005 Outpatient Historical [facility] Maternal and Ground Floor [address] [place] [address] Corey Patel MD [address] [place] [address] [place] [address] Social History Tobacco Use Types Packs/Day Years Used Date Smoking Tobacco: Never Assessed Comments Unknown Sex and Gender Information Value Date Recorded Sex Assigned at Not on file 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 [address] PCP - General Family Practice 07/19/22 documented as of this encounter
--- OUTSIDE RECORDS SUMMARY | 2024-09-02 15:08 | XMS_ITS | Encounter Summary ---
Author Organization [facility] Address [address] [place] [address] Care Team Providers Care Utility Mechanic Supervisor Name Role Phone Eren Wade MD Primary Care Provider [phone] Encounter Details Date Type Department Care Team (Late st Contact Info) Description 11/16/2005 Outpatient Historical [facility] Maternal and Ground Floor [address] [place] [address] Zacarias Melchor MD NO ADDRESS ON FILE Social History Tobacco Use Types Packs/Day Years Used Date Smoking Tobacco: Never Assessed Comments Unknown Sex and Gender Information Value Date Recorded Sex Assigned at Not on file 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 [address] PCP - General Family Practice 07/19/22 documented as of this encounter
--- OUTSIDE RECORDS SUMMARY | 2024-09-02 15:08 | XMS_ITS | Encounter Summary ---
Author Organization [facility] Address [address] [place] [address] Care Team Providers Care Broaching Machine Set Up Operator Name Role Phone Eren Wade MD Primary Care Provider [phone] Encounter Details Date Type Department Care Team (Late st Contact Info) Description 11/30/2005 Outpatient Historical [facility] Maternal and Ground Floor [address] [place] [address] Zacarias Melchor MD NO ADDRESS ON FILE Social History Tobacco Use Types Packs/Day Years Used Date Smoking Tobacco: Never Assessed Comments Unknown Sex and Gender Information Value Date Recorded Sex Assigned at Not on file 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 [address] PCP - General Family Practice 07/19/22 documented as of this encounter
--- OUTSIDE RECORDS SUMMARY | 2024-09-02 15:08 | XMS_ITS | Encounter Summary ---
Author Organization [facility] Address [address] [place] [address] Care Team Providers Care Plate Cutter Name Role Phone Eren Wade MD Primary Care Provider [phone] Encounter Details Date Type Department Care Team (Late st Contact Info) Description 11/27/2005 Outpatient Historical [facility] Maternal and Ground Floor [address] [place] [address] Zacarias Melchor MD NO ADDRESS ON FILE Social History Tobacco Use Types Packs/Day Years Used Date Smoking Tobacco: Never Assessed Comments Unknown Sex and Gender Information Value Date Recorded Sex Assigned at Not on file Legal Sex Female 5:19 AM DEPUTY DIRECTOR OF NURSING Gender Identity Not on file Sexual Orientation Not on file documented as of this encounter Plan of Treatment Not on file documented as of this encounter Visit Diagnoses Not on filedocumented in this encounter Additional Health Concerns Infection Onset Date Last Indicated Resolved Time COVID-19 10/25/2023 10/25/2023 11/14/2023 1:16 AM CDT documented as of this encounter Care Teams Plate Cutter Relationship Specialty Start Date End Date Eren Wade MD [address] [place] [address] PCP - General Family Practice 07/19/22 documented as of this encounter
== END 2024-09-02 13:16 | disposition home or self-care (01) ==
PROVIDERS: Emergency Provider Nurse Practitioner Family
DX: L30.9 Dermatitis, unspecified (principal); Z87.891 Personal history of nicotine dependence; F41.9 Anxiety disorder, unspecified; F32.A Depression, unspecified
CPT/HCPCS: 99213; G0463

== ENCOUNTER 2024-11-12 11:49 | Outpatient (CLI) | payer OTHER, SELFPAY ==
--- OUTSIDE RECORDS SUMMARY | 2024-11-12 12:15 | XMS_ITS | Encounter Summary ---
Author Organization [facility] Address [address] [place] [address] Care Team Providers Care Affirmative Action Specialist Name Role Phone Eren Wade MD Primary Care Provider [phone] Encounter Details Date Type Department Care Team (Late st Contact Info) Description 10/19/2005 Outpatient Historical [facility] Maternal and Ground Floor [address] [place] [address] Corey Patel MD [address] [facility] [address] [place] [address] Social History Tobacco Use Types Packs/Day Years Used Date Smoking Tobacco: Never Assessed Comments Unknown Sex and Gender Information Value Date Recorded Sex Assigned at Not on file 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 [address] PCP - General Family Practice 07/19/22 documented as of this encounter
--- OUTSIDE RECORDS SUMMARY | 2024-11-12 12:15 | XMS_ITS | Encounter Summary ---
Author Organization [facility] Address [address] [place] [address] Care Team Providers Care Winchman/Crane Operator Name Role Phone Eren Wade MD Primary Care Provider [phone] Encounter Details Date Type Department Care Team (Late st Contact Info) Description 11/13/2005 Outpatient Historical [facility] Maternal and Ground Floor [address] [place] [address] Zacarias Melchor MD NO ADDRESS ON FILE Social History Tobacco Use Types Packs/Day Years Used Date Smoking Tobacco: Never Assessed Comments Unknown Sex and Gender Information Value Date Recorded Sex Assigned at Not on file Legal Sex Female 5:19 AM CORPORATE LEGAL ASSISTANT Gender Identity Not on file Sexual Orientation Not on file documented as of this encounter Plan of Treatment Not on file documented as of this encounter Visit Diagnoses Not on filedocumented in this encounter Additional Health Concerns Infection Onset Date Last Indicated Resolved Time COVID-19 10/25/2023 10/25/2023 11/14/2023 1:16 AM CDT documented as of this encounter Care Teams Winchman/Crane Operator Relationship Specialty Start Date End Date Eren Wade MD [address] [place] [address] PCP - General Family Practice 07/19/22 documented as of this encounter
--- OUTSIDE RECORDS SUMMARY | 2024-11-12 12:15 | XMS_ITS | Encounter Summary ---
Author Organization [facility] Address [address] [place] [address] Care Team Providers Care Exchange Architect Name Role Phone Eren Wade MD Primary Care Provider [phone] Encounter Details Date Type Department Care Team (Late st Contact Info) Description 2005 Outpatient Historical [facility] Maternal and Ground Floor [facility] [address] [place] [address] Sergio Valenzuela MD [address] [place] [address] Social History Tobacco Use Types Packs/Day Years Used Date Smoking Tobacco: Never Assessed Comments Unknown Sex and Gender Information Value Date Recorded Sex Assigned at Not on file Legal Sex Female 5:19 AM CLEATER Gender Identity Not on file Sexual Orientation Not on file documented as of this encounter Plan of Treatment Not on file documented as of this encounter Visit Diagnoses Not on filedocumented in this encounter Additional Health Concerns Infection Onset Date Last Indicated Resolved Time COVID-19 10/25/2023 10/25/2023 11/14/2023 1:16 AM CDT documented as of this encounter Care Teams Exchange Architect Relationship Specialty Start Date End Date Eren Wade MD [address] [place] [address] PCP - General Family Practice 07/19/22 documented as of this encounter
--- OUTSIDE RECORDS SUMMARY | 2024-11-12 12:15 | XMS_ITS | Encounter Summary ---
Author Organization [facility] Address [address] [place] [address] Care Team Providers Care Shiatsu Therapist Name Role Phone Eren Wade MD Primary Care Provider [phone] Encounter Details Date Type Department Care Team (Late st Contact Info) Description 11/06/2005 Outpatient Historical [facility] Maternal and Ground Floor [address] [place] [address] Jonatan Chance MD NO ADDRESS ON FILE Social History Tobacco Use Types Packs/Day Years Used Date Smoking Tobacco: Never Assessed Comments Unknown Sex and Gender Information Value Date Recorded Sex Assigned at Not on file Legal Sex Female 5:19 AM INFORMATION SECURITY ENGINEER Gender Identity Not on file Sexual Orientation Not on file documented as of this encounter Plan of Treatment Not on file documented as of this encounter Visit Diagnoses Not on filedocumented in this encounter Additional Health Concerns Infection Onset Date Last Indicated Resolved Time COVID-19 10/25/2023 10/25/2023 11/14/2023 1:16 AM CDT documented as of this encounter Care Teams Shiatsu Therapist Relationship Specialty Start Date End Date Eren Wade MD [address] [place] [address] PCP - General Family Practice 07/19/22 documented as of this encounter
--- OUTSIDE RECORDS SUMMARY | 2024-11-12 12:15 | XMS_ITS | Encounter Summary ---
Author Organization [facility] Address [address] [place] [address] Care Team Providers Care Simulation Technician Name Role Phone Eren Wade MD Primary Care Provider [phone] Encounter Details Date Type Department Care Team (Late st Contact Info) Description 03/12/2005 Outpatient Historical [facility] Family Medicine [facility] [address] [place] [address] Herve Tian MD [address] [place] [address] Social History Tobacco Use Types Packs/Day Years Used Date Smoking Tobacco: Never Assessed Comments Unknown Sex and Gender Information Value Date Recorded Sex Assigned at Not on file Legal Sex Female 5:19 AM MANAGER STAR Gender Identity Not on file Sexual Orientation Not on file documented as of this encounter Last Filed Vital Signs Vital Sign Reading Time Taken Comments Blood Pressure 112/68 03/12/2005 3:45 PM MANAGER STAR Pulse - - Temperature 37.6 C (99.7 F) 03/12/2005 3:45 PM MANAGER STAR Respiratory Rate - - Oxygen Saturation - - Inhaled Oxygen Concentration - - Weight 68.9 kg (152 lb) 03/12/2005 3:45 PM MANAGER STAR Height 175.3 cm (5' 9) 03/12/2005 3:45 PM MANAGER STAR Body Mass Index 22.45 03/12/2005 3:45 PM MANAGER STAR documented in this encounter Plan of Treatment Not on file documented as of this encounter Visit Diagnoses Not on filedocumented in this encounter Additional Health Concerns Infection Onset Date Last Indicated Resolved Time COVID-19 10/25/2023 10/25/2023 11/14/2023 1:16 AM CDT documented as of this encounter Care Teams Simulation Technician Relationship Specialty Start Date End Date Eren Wade MD [address] [place] [address] PCP - General Family Practice 07/19/22 documented as of this encounter
--- OUTSIDE RECORDS SUMMARY | 2024-11-12 12:15 | XMS_ITS | Clinical Summary ---
Author Organization [facility] Address [address] [place] [address] Care Team Providers Care Staff Technologist Name Role Phone Eren Wade MD Primary [...] on file Legal Sex Female 9:11 PM MECHANICAL AND AUTO BODY CAR CHECKER Gender Identity Not on file Sexual Orientation [...] Screening 11/10/2003 Regular Well Visit/Exam 18-64 11/10/2003 HPV Vaccines (1 - 3-dose SCD M series) 2012 Influenza Vaccine (#1) 2024 DTaP/Tdap/Td Vaccine (2 - Td or Tdap) 07/19/2030 07/19/2020 Pneumococcal vaccine <65 Aged Out No longer eligible based on patient's age to complete this topic Insurance [place] [address] [facility] Care Teams Staff Technologist Relationship Specialty Start Date End Date Eren Wade MD PCP - General 03/10/19
--- OUTSIDE RECORDS SUMMARY | 2024-11-12 12:15 | XMS_ITS | Encounter Summary ---
Author Organization [facility] Address [address] [place] [address] Care Team Providers Care Middle School Tutor Name Role Phone Eren Wade MD Primary Care Provider [phone] Encounter Details Date Type Department Care Team (Late st Contact Info) Description 12/21/2005 Outpatient Historical [facility] Dolly Mcfadden DO [address] [facility] [address] [place] [address] Social History Tobacco Use Types Packs/Day Years Used Date Smoking Tobacco: Never Assessed Comments Unknown Sex and Gender Information Value Date Recorded Sex Assigned at Not on file Legal Sex Female 5:19 AM APPELLATE LAW CLERK Gender Identity Not on file Sexual Orientation Not on file documented as of this encounter Plan of Treatment Not on file documented as of this encounter Visit Diagnoses Not on filedocumented in this encounter Additional Health Concerns Infection Onset Date Last Indicated Resolved Time COVID-19 10/25/2023 10/25/2023 11/14/2023 1:16 AM CDT documented as of this encounter Care Teams Middle School Tutor Relationship Specialty Start Date End Date Eren Wade MD [address] [place] [address] PCP - General Family Practice 07/19/22 documented as of this encounter
--- OUTSIDE RECORDS SUMMARY | 2024-11-12 12:15 | XMS_ITS | Encounter Summary ---
Author Organization [facility] Address [address] [place] [address] Care Team Providers Care Life Skills Coach Name Role Phone Eren Wade MD Primary Care Provider [phone] Encounter Details Date Type Department Care Team (Late st Contact Info) Description 10/24/2005 Outpatient Historical [facility] Maternal and Ground Floor [facility] [address] [place] [address] Sergio Valenzuela MD [address] [place] [address] Social History Tobacco Use Types Packs/Day Years Used Date Smoking Tobacco: Never Assessed Comments Unknown Sex and Gender Information Value Date Recorded Sex Assigned at Not on file Legal Sex Female 5:19 AM LUMBER CHECKER Gender Identity Not on file Sexual Orientation Not on file documented as of this encounter Plan of Treatment Not on file documented as of this encounter Visit Diagnoses Not on filedocumented in this encounter Additional Health Concerns Infection Onset Date Last Indicated Resolved Time COVID-19 10/25/2023 10/25/2023 11/14/2023 1:16 AM CDT documented as of this encounter Care Teams Life Skills Coach Relationship Specialty Start Date End Date Eren Wade MD [address] [place] [address] PCP - General Family Practice 07/19/22 documented as of this encounter
--- OUTSIDE RECORDS SUMMARY | 2024-11-12 12:15 | XMS_ITS | Encounter Summary ---
Author Organization [facility] Address 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 [address] PCP - General Family Practice 07/19/22 documented as of this encounter
--- OUTSIDE RECORDS SUMMARY | 2024-11-12 12:15 | XMS_ITS | Encounter Summary ---
Author Organization [facility] Address [address] [place] [address] Care Team Providers Care Cone Worker Name Role Phone Eren Wade MD Primary Care Provider [phone] Encounter Details Date Type Department Care Team (Latest Contact Info) Description 05/21/2005 Outpatient Historical [facility] [place] [id number] [facility] [address] [place] [id number] MILD HYPEREMESIS-ANTEPAR (Primary Dx) Social History Tobacco Use Types Packs/Day Years Used Date Smoking Tobacco: Never Assessed Comments Unknown Sex and Gender Information Value Date Recorded Sex Assigned at Not on file Legal Sex Female 5:19 AM HUMANITIES AND LANGUAGES PROFESSOR Gender Identity Not on file Sexual Orientation Not on file documented as of this encounter Plan of Treatment Not on file documented as of this encounter Procedures Procedure Name Priority Date/Time Associated Diagnosis Comments CBC WITH DIFFERENTIAL Routine 05/21/2005 12:55 PM HUMANITIES AND LANGUAGES PROFESSOR CBC WITH DIFFERENTIAL Routine 05/21/2005 12:55 PM HUMANITIES AND LANGUAGES PROFESSOR BASIC METABOLIC PANEL Routine 05/21/2005 12:55 PM HUMANITIES AND LANGUAGES PROFESSOR documented in this encounter Results * CBC WITH DIFFERENTIAL (05/21/2005 12:55 PM HUMANITIES AND LANGUAGES PROFESSOR) NEUTROPHILS 70 45 - 70 % INTERFAC [...] K/uL INTERFACE SYSTEM 05/21/2005 12:5 5 PM HUMANITIES AND LANGUAGES PROFESSOR [facility] HEMATOLOGY ORDERABLES Final Re sult Performing Organization Address City/[facility] de Phone Number INTERFACE SYSTEM Refer to clinic/hospital department * CBC WITH DIFFERENTIAL (05/21/2005 12:55 PM HUMANITIES AND LANGUAGES PROFESSOR) WBC 8.9 4.0 - 9.8 K/uL INTERFACE [...] fL INTERFACE SYSTEM 05/21/2005 12:5 5 PM HUMANITIES AND LANGUAGES PROFESSOR [facility] Location, [facility] HEMATOLOGY ORDERABLES Final Re sult Performing Organization Address [facility] de Phone Number INTERFACE SYSTEM Refer to clinic/hospital department * BASIC METABOLIC PANEL (05/21/2005 12:55 PM HUMANITIES AND LANGUAGES PROFESSOR) GLUCOSE 78 65 - 109 mg/dL INTERFACE [...] mmol/L INTERFACE SYSTEM 05/21/2005 12:5 5 PM HUMANITIES AND LANGUAGES PROFESSOR Dolly Mcfadden DO CHEMISTRY ORDERABLES Final Res ult INTERFACE SYSTEM Refer to clinic/hospital department documented in this encounter Visit Diagnoses Diagnosis Mild hyperemesis gravidarum, antepartum- Primary documented in this encounter Additional Health Concerns Infection Onset Date Last Indicated Resolved Time COVID-19 10/25/2023 10/25/2023 11/14/2023 1:16 AM CDT documented as of this encounter Care Teams Cone Worker Relationship Specialty Start Date End Date Eren Wade MD [address] [place] [address] PCP - General Family Practice 07/19/22 documented as of this encounter
--- OUTSIDE RECORDS SUMMARY | 2024-11-12 12:15 | XMS_ITS | Encounter Summary ---
Author Organization [facility] Address [address] [place] [address] Care Team Providers Care Applications Support Lead Name Role Phone Eren Wade MD Primary Care Provider [phone] Encounter Details Date Type Department Care Team (Latest Contact Info) Description 12/03/2005 Inpatient Historical [facility] Dolly Mcfadden, [address] [facility] [facility] [address] [facility] [place] [address] Post Term -Delivered (Primary Dx) Social History Tobacco Use Types Packs/Day Years Used Date Smoking Tobacco: Never Assessed Comments Unknown Sex and Gender Information Value Date Recorded Sex Assigned at Not on file Legal Sex Female 5:19 AM 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 Gender Identity Not on file Sexual [...] 0.00 - 0.20 K/uL INTERFACE SYSTEM 12/03/2005 3:5 5 PM CDT Dolly Gutierrez Bogdan MARQUES HEMATOLOGY ORDERABLES Final Re sult Performing Organization Address City/[facility]/ZIP Co de Phone Number INTERFACE SYSTEM Refer to [...] Bogdan MARQUES HEMATOLOGY ORDERABLES Final Re sult Performing Organization Address City/[facility]/ZIP Co de Phone Number INTERFACE SYSTEM Refer to clinic/hospital department documented in this encounter Visit Diagnoses Diagnosis Post term , delivered with or without mention of antepartum condition- Primary documented in this encounter Additional Health Concerns Infection Onset Date Last Indicated Resolved Time COVID-19 10/25/2023 10/25/2023 11/14/2023 1:16 AM CDT documented as of this encounter Care Teams Applications Support Lead Relationship Specialty Start Date End Date Eren Wade MD [address] [place] [address] PCP - General Family Practice 07/19/22 documented as of this encounter
--- OUTSIDE RECORDS SUMMARY | 2024-11-12 12:15 | XMS_ITS | Encounter Summary ---
Author Organization [facility] Address [address] [place] [address] Care Team Providers Care Scrap Baller Name Role Phone Eren Wade MD Primary Care Provider [phone] Encounter Details Date Type Department Care Team (Late st Contact Info) Description 11/16/[address] [facility] Maternal and Ground Floor [address] [place] [address] Zacarias Melchor MD NO ADDRESS ON FILE Social History Tobacco Use Types Packs/Day Years Used Date Smoking Tobacco: Never Assessed Comments Unknown Sex and Gender Information Value Date Recorded Sex Assigned at Not on file Legal Sex Female 5:19 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 [address] PCP - General Family Practice 07/19/22 documented as of this encounter
--- OUTSIDE RECORDS SUMMARY | 2024-11-12 12:15 | XMS_ITS | Encounter Summary ---
Author Organization [facility] Address [address] [place] [address] Care Team Providers Care Barrel Turner Name Role Phone Eren Wade MD Primary Care Provider [phone] Encounter Details Date Type Department Care Team (Late st Contact Info) Description 11/20/2005 Outpatient Historical 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 [address] PCP - General Family Practice 07/19/22 documented as of this encounter
--- OUTSIDE RECORDS SUMMARY | 2024-11-12 12:15 | XMS_ITS | Clinical Summary ---
Author Organization [facility] Address [address] [place] [address] Care Team Providers Care Assistant Men'S Lacrosse Coach Name Role Phone Eren Wade MD Primary Care Provider [phone] Eren Wade MD Unavailable [phone] Source Comments [facility],non-owned Affiliates and Associated Physician Practices is amultiple site organization consisting of ambulatory clinics and hospital sitesin [place], [place], [place] and [place]. This disclosure is being madepursuant to the Care Everywhere program and may not contain all information available regarding this patient. Last updated 17.[facility] Allergies Active Allergy Reactions Criticality Noted Date Comments Sulfa Drugs Urticaria 09/12/2015 Acetaminophen Urticaria 09/12/2015 Acetaminophen Nausea and/or Vomiting Medium 01/30/2018 Medications * This document contains information received from the source organization and may not represent a complete record from that organization. * Be aware that medications may not be up to date on this document. Alwaysverify current medications with the patient. ALPRAZolam (XANAX) 0.25 MG tablet Take 1 (one) tablet by mouth 3 times daily as needed for Anxiety Active HYDROmorphone (DILAUDID) 2 MG tablet Take 1 Tab by mouth every 4 hours as needed for Pain 20 Tab 0 09/12/2015 Active ferrous sulfate 325 (65 FE) MG tablet Take 1 Tab by mouth 3 times daily with meals 100 Tab 0 09/12/2015 Active docusate sodium (COLACE) 100 MG capsule Take 1 Cap by mouth at bedtime 10 Cap 0 09/12/2015 Active clonazePAM (KlonoPIN) 0.5 MG tablet Take 1 (one) tablet by mouth at bedtime 11/21/2023 Active Active Problems Problem Noted Date Diagnosed Date Thyroid nodule 01/31/2018 Pulmonary nodule 01/31/2018 Elevated ETOH level 01/31/2018 Hypokalemia 01/31/2018 Closed nondisplaced fracture of shaft of fifth metacarpal bone of left hand 01/30/2018 Suicidal ideation 01/30/2018 Social History Tobacco Use Types Packs/Day Years Used Date Smoking Tobacco: Never Smokeless Tobacco: Never Alcohol Use Standard Drinks/Week Comments No 0 (1 standard drink = 0.6 oz pur e alcohol) PHQ-2 Answer Date Recorded Patient Health Questionnaire-2 Score 0 12/17/2023 Comments Unknown Sex and Gender Information Value Date Recorded Sex Assigned at Not on file Legal Sex Female 6:47 AM SPRAY GUN REPAIRER Gender Identity Not on file Sexual Orientation Not on file Last Filed Vital Signs Vital Sign Reading Time Taken Comments Blood Pressure 97/54 02/01/2018 9:26 AM SPRAY GUN REPAIRER Pulse 68 12/17/2023 11:52 AM CDT Temperature 36.6 C (97.9 F) 12/17/2023 11:52 AM CDT Respiratory Rate 18 12/17/2023 11:52 AM CDT Oxygen Saturation 100% 02/01/2018 9:26 AM SPRAY GUN REPAIRER Inhaled Oxygen Concentration - - Weight 76.2 kg (168 lb) 12/17/2023 11:49 AM CDT Height 172.7 cm (5' 8) 12/17/2023 11:49 AM CDT Body Mass Index 25.54 12/17/2023 11:49 AM CDT Plan of Treatment Health Maintenance Due Date Last Done Comments HIV SCREENING 2000 HEPATITIS C SCREENING 11/05/2003 DTAP/TDAP/TD VACCINES (1 - Tdap) 2004 HEPATITIS B VACCINE (1 of 3 - 19+ 3-dose series) 2004 HPV VACCINE (1 - 3-dose SCDM series) 2012 COVID-19 VACCINE (3 - 2023-2 5 season) 2023 11/27/2020, 10/31/2020 DEPRESSION SCREENING 03/25/2024 12/17/2023 INFLUENZA VACCINE (#1) 2024 ZOSTER VACCINE (1 of 2) 11/10/2035 HIB VACCINE Aged Out No longer eligi ble based on patient's age to complete this topic MENINGOCOCCAL (Group B) VACCINE SHARED DECISION-MAKING Aged Out No longer eligible based on patient's age to complete this topic MENINGOCOCCAL GROUPS A/C/Y/W VACCINE Aged Out No longer eligible b ased on patient's age to complete this topic PNEUMOCOCCAL VACCINE Aged Out No long er eligible based on patient's age to complete this topic Insurance [facility] [place] [facility] [place] [facility] [place] Member Subscriber Plan / Payer (Ef fective for All Dates) Name:Kasandra Kesha M Relation to Subscriber:Self Name:SLAUGHTERKESHA Payer ID:Not on file Group ID:Not on file Type:Medicaid [place] Address: [address] [place] Member Subscriber Plan / Payer (Ef fective for All Dates) Name:Kasandra Kesha M Relation to Subscriber:Self Name:SLAUGHTERKESHA Payer ID:Not on file Group ID:Not on file Type:Medicaid [place] Address: [address] [place] Member Subscriber Plan / Payer (Ef fective for All Dates) Name:Kesha Slaughter Relation to Subscriber:Self Name:KASANDRAKESHA Payer ID:Not on file Group ID:Not on file Type:Medicaid [place] Address: [address] [place] Member Subscriber Plan / Payer (Ef fective for All Dates) Name:Kesha Slaughter Relation to Subscriber:Self Name:KESHA SLAUGHTER Payer ID:Not on file Group ID:Not on file Type:Medicaid [place] Address: [address] [place] Member Subscriber Plan / Payer (Ef fective for All Dates) Name:Kesha Slaughter M Relation to Subscriber:Self Name:KESHA SLAUGHTER Payer ID:Not on file Group ID:Not on file Type:Medicaid [place] Address: [address] [place] [facility] [place] [facility] [place] [facility] [place] [facility] [place] [facility] [facility] [place] [facility] [facility] [place] Member Subscriber Plan / Payer (Ef fective for All Dates) Name:Kesha Slaughter Relation to Subscriber:Self Name:SLAUGHTERKESHA Payer ID:Not on file Group ID:Not on file Type:Medicaid [place] Address: [place] [id number] [facility] [place] [facility] [place] [facility] [place] [facility] [place] [facility] [place] Sub[place] Plan / Payer (Ef fective for All Dates) Name:Kesha Slaughter Relation to Subscriber:Self Name:KESHA SLAUGHTER Payer ID:Not on file Group ID:Not on file Type:Medicaid [place] Address: [address] [facility] [place] Sub[place] Plan / Payer (Ef fective for All Dates) Name:Kasandra Kesha Nikole Relation to Subscriber:Self Name:KESHA SLAUGHTER Payer ID:Not on file Group ID:Not on file Type:Medicaid [place] Address: [address] [place] Member Sub[place] Plan / Payer (Ef fective for All Dates) Name:Kasandra Kesha M Relation to Subscriber:Self Name:KASANDRAKESHA Payer ID:Not on file Group ID:Not on file Type:Medicaid [place] Address: [address] [place] Member Subscriber Plan / Payer (Ef fective for All Dates) Name:Kesha Slaughter M Relation to Subscriber:Self Name:KASANDRAKESHA Payer ID:Not on file Group ID:Not on file Type:[place]icaid [place] Address: [address] [place] Member Subscriber Plan / Payer (Ef fective for All Dates) Name:Kesha Slaughter M Relation to Subscriber:Self Name:KASANDRAKESHA Payer ID:Not on file Group ID:Not on file Type:Medicaid [place] Address: [address] [facility] [place] Advance Directives * Full Code (Latest Code Status on File) Date Activated Date Inactivated Comments 01/30/2018 9:09 PM 02/01/2018 4:15 PM * Full Code Date Activated Date Inactivated Comments 01/30/2018 5:48 PM 01/30/2018 9:09 PM Care Teams Assistant Men'S Lacrosse Coach Relationship Specialty Start Date End Date Eren Wade MD [address] [place] [id number] PCP - General 01/31/18 Eren Wade MD [address] [place] [address] Family Medicine 01/31/18
--- OUTSIDE RECORDS SUMMARY | 2024-11-12 12:15 | XMS_ITS | Encounter Summary ---
Author Organization [facility] Address [address] [place] [address] Care Team Providers Care Cloth Tester Name Role Phone Eren Wade MD Primary Care Provider [phone] Eren aWde MD Unavailable [phone] Encounter Details Date Type Department Care Team (Late st Contact Info) Description 02/18/2018 Telephone [facility] [address] [place] [address] Maxi Soria MD [address] [address] Social History Tobacco Use Types Packs/Day Years Used Date Smoking Tobacco: Never Smokeless Tobacco: Never Alcohol Use Standard Drinks/Week Comments No 0 (1 standard drink = 0.6 oz pur e alcohol) Comments Unknown Sex and Gender Information Value Date Recorded Sex Assigned at Not on file Legal Sex Female 6:47 AM DELICATESSEN CLERK Gender Identity Not on file Sexual Orientation Not on file documented as of this encounter Functional Status * Is person deaf or have serious hearing difficulty? Answer Date of Assessment Author No 02/01/2018 3:08 PM Rahul Guadarrama RN * Is person blind or have serious difficulty seeing? Answer Date of Assessment Author No 02/01/2018 3:08 PM Rahul Guadarrama RN * Does person have serious difficulty walking/climbing stairs? Answer Date of Assessment Author No 02/01/2018 3:08 PM Rahul Guadarrama RN * Does person have difficulty dressing/bathing? Answer Date of Assessment Author No 02/01/2018 3:08 PM Rahul Guadarrama RN * Does person have difficulty doing errands alone? Answer Date of Assessment Author No 02/01/2018 3:08 PM DELICATESSEN CLERK Rahul Jackson RN documented as of this encounter Mental Status * Does person have difficulty concentrating/remembering/making decisions? Answer Entry Date Author No 02/01/2018 3:08 PM DELICATESSEN CLERK Richelle Jackson RN documented in this encounter Miscellaneous Notes * Telephone Encounter - Claudia Allen - 02/18/2018 1:49 PM CST Per Shilpa Jessica @ [facility] for cpt codes 59601 and [address]. CATESSEN CLERK documented in this encounter Plan of Treatment Not on file documented as of this encounter Visit Diagnoses Not on filedocumented in this encounter Care Teams Cloth Tester Relationship Specialty Start Date End Date Eren Wade MD [address] [place] [address] PCP - General 01/31/18 Eren Wade MD [address] [place] [address] Family Medicine 01/31/18 documented as of this encounter
--- OUTSIDE RECORDS SUMMARY | 2024-11-12 12:15 | XMS_ITS | Encounter Summary ---
Author Organization [facility] Address [address] [place] [address] Care Team Providers Care Senior Telecommunications Engineer Name Role Phone Eren Wade MD Primary Care Provider [phone] Encounter Details Date Type Department Care Team (Late st Contact Info) Description 10/30/2005 Outpatient Historical [facility] Maternal and Ground Floor [address] [place] [address] Corey Patel MD [address] [facility] [address] [place] [address] Social History Tobacco Use Types Packs/Day Years Used Date Smoking Tobacco: Never Assessed Comments Unknown Sex and Gender Information Value Date Recorded Sex Assigned at Not on file 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 [address] PCP - General Family Practice 07/19/22 documented as of this encounter
--- OUTSIDE RECORDS SUMMARY | 2024-11-12 12:15 | XMS_ITS | Clinical Summary ---
Author Organization [facility] Oma Barnes Address [address] [place] [address] Care Team Providers Care Automotive Warranty Administrator Name Role Phone Eren Wade MD Primary Care Provider [phone] Allergies Active Allergy Reactions Criticality Noted Date [...] Nausea/Emesis. Active fluticasone propionate (FLONASE) 50 mcg/spray Carmen, Suspension nasal inhalerIndicat ions:COVID-19 virus detected Administer 2 Sprays in each nostril daily. 16 Gram 4 Active Active Problems Problem Noted Date Diagnosed Date Acute upper respiratory infections of unspecifie d site 03/12/2005 Encounters Date Type Department Care Team Description 10/07/2024 External Device Data ST[facility] ABSTRACTION Provider, Abstract 10/06/2024 External Device Data [facility] ABSTRACTION Provider, Abstract 09/15/2024 External Device Data [facility] ABSTRACTION Provider, Abstract 09/08/2024 External Device Data [facility] ABSTRACTION Provider, Abstract 08/13/2024 External Device Data [facility] ABSTRACTION Provider, [...] file Legal Sex Female 5:19 AM MANAGER MEDIA Gender Identity Not on file Sexual Orientation [...] Health Maintenance Due Date Last Done Comments HPV VACCINES (1 - 3-dose series) 2000 HEPATITIS B VACCINES (1 of 3 - 19+ 3-dose series) 10/23 HPV/Cotest (21-29) 2006 CERVICAL CANCER SCREENING 11/10/2015 HPV/Cotest (30-65) 11/10/2015 PAP SMEAR 11/10/2015 INFLUENZA VACCINE (#1) 2024 DTAP/TDAP/TD VACCINES (2 - Td or Tdap) 07/19/2030 [place] Care Teams Automotive Warranty Administrator Relationship Specialty Start Date End Date Eren Wade MD [address] [place] [address] PCP - General Family Practice 07/19/22
--- OUTSIDE RECORDS SUMMARY | 2024-11-12 12:15 | XMS_ITS | Encounter Summary ---
Author Organization [facility] Address [address] [place] [address] Care Team Providers Care Hearing Therapist Name Role Phone Eren Wade MD Primary Care Provider [phone] Encounter Details Date Type Department Care Team (Late st Contact Info) Description 11/23/2005 Outpatient Historical [facility] Maternal and Ground Floor [address] [place] [id number] Corey Patel MD [address] [facility] [address] [place] [address] Social History Tobacco Use Types Packs/Day Years Used Date Smoking Tobacco: Never Assessed Comments Unknown Sex and Gender Information Value Date Recorded Sex Assigned at Not on file 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 [address] PCP - General Family Practice 07/19/22 documented as of this encounter
--- OUTSIDE RECORDS SUMMARY | 2024-11-12 12:15 | XMS_ITS | Encounter Summary ---
Author Organization [facility] Address [address] [place] [address] Care Team Providers Care Sales Market Leader Name Role Phone Eren Wade MD Primary Care Provider [phone] Encounter Details Date Type Department Care Team (Late st Contact Info) Description 11/20/2005 Outpatient Historical [facility] Dolly Mcfadden DO 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 [address] PCP - General Family Practice 07/19/22 documented as of this encounter
--- OUTSIDE RECORDS SUMMARY | 2024-11-12 12:15 | XMS_ITS | Encounter Summary ---
Author Organization [facility] Address [address] [place] [address] Care Team Providers Care Laminating Machine Operator Helper Name Role Phone Eren Wade MD Primary Care Provider [phone] Encounter Details Date Type Department Care Team (Late st Contact Info) Description 11/30/2005 Outpatient Historical [facility] Maternal and Ground Floor [address] [place] [address] Zacarias Melchor MD NO ADDRESS ON FILE Social History Tobacco Use Types Packs/Day Years Used Date Smoking Tobacco: Never Assessed Comments Unknown Sex and Gender Information Value Date Recorded Sex Assigned at Not on file Legal Sex Female 5:19 AM PIPER HELPER Gender Identity Not on file Sexual Orientation Not on file documented as of this encounter Plan of Treatment Not on file documented as of this encounter Visit Diagnoses Not on filedocumented in this encounter Additional Health Concerns Infection Onset Date Last Indicated Resolved Time COVID-19 10/25/2023 10/25/2023 11/14/2023 1:16 AM CDT documented as of this encounter Care Teams Laminating Machine Operator Helper Relationship Specialty Start Date End Date Eren Wade MD [address] [place] [address] PCP - General Family Practice 07/19/22 documented as of this encounter
--- OUTSIDE RECORDS SUMMARY | 2024-11-12 12:15 | XMS_ITS | Encounter Summary ---
Author Organization [facility] Address [address] [place] [address] Care Team Providers Care Senior Sql Dba Name Role Phone Eren Wade MD Primary Care Provider [phone] Encounter Details Date Type Department Care Team (Latest Contact Info) Description 10/24/2005 Outpatient Historical [facility] Madhu Willis MD NO ADDRESS ON FILE KarrieDolly nielson, [facility] [address] [place] [address] Decreased Movements, Affecting Management of Mother, Antepartum (Primary Dx) Social History Tobacco Use Types Packs/Day Years Used Date Smoking Tobacco: Never Assessed Comments Unknown Sex and Gender Information Value Date Recorded Sex Assigned at Not on file Legal Sex Female 5:19 AM QUALITY CONTROL SUPERVISOR Gender Identity Not on file Sexual Orientation [...] as of this encounter Care Teams Senior Sql Dba Relationship Specialty Start Date End Date Eren Wade MD [address] [place] [address] PCP - General Family Practice 07/19/22 documented as of this encounter
--- OUTSIDE RECORDS SUMMARY | 2024-11-12 12:15 | XMS_ITS | Encounter Summary ---
Author Organization [facility] Address [address] [place] [address] Care Team Providers Care Stave Log Cut Off Saw Operator Name Role Phone Eren Wade MD Primary Care Provider [phone] Encounter Details Date Type Department Care Team (Late st Contact Info) Description 11/02/2005 Outpatient Historical [facility] Maternal and Ground Floor [address] [place] [address] Kusum Moeller MD [address] [place] [address] Social History Tobacco Use Types Packs/Day Years Used Date Smoking Tobacco: Never Assessed Comments Unknown Sex and Gender Information Value Date Recorded Sex Assigned at Not on file Legal Sex Female 5:19 AM AUTOMOTIVE QUALITY ENGINEER Gender Identity Not on file Sexual Orientation Not on file documented as of this encounter Plan of Treatment Not on file documented as of this encounter Visit Diagnoses Not on filedocumented in this encounter Additional Health Concerns Infection Onset Date Last Indicated Resolved Time COVID-19 10/25/2023 10/25/2023 11/14/2023 1:16 AM CDT documented as of this encounter Care Teams Stave Log Cut Off Saw Operator Relationship Specialty Start Date End Date Eren Wade MD [address] [place] [address] PCP - General Family Practice 07/19/22 documented as of this encounter
--- OUTSIDE RECORDS SUMMARY | 2024-11-12 12:15 | XMS_ITS | Encounter Summary ---
Author Organization [facility] Address [address] [place] [address] Care Team Providers Care Plumbing Drafter Name Role Phone Eren Wade MD Primary Care Provider [phone] Encounter Details Date Type Department Care Team (Late st Contact Info) Description 11/27/2005 Outpatient Historical [facility] Maternal and Ground Floor [address] [place] [address] Zacarias Melchor MD NO ADDRESS ON FILE Social History Tobacco Use Types Packs/Day Years Used Date Smoking Tobacco: Never Assessed Comments Unknown Sex and Gender Information Value Date Recorded Sex Assigned at Not on file Legal Sex Female 5:19 AM HAIR DRYER Gender Identity Not on file Sexual Orientation Not on file documented as of this encounter Plan of Treatment Not on file documented as of this encounter Visit Diagnoses Not on filedocumented in this encounter Additional Health Concerns Infection Onset Date Last Indicated Resolved Time COVID-19 10/25/2023 10/25/2023 11/14/2023 1:16 AM CDT documented as of this encounter Care Teams Plumbing Drafter Relationship Specialty Start Date End Date Eren Wade MD [address] [place] [address] PCP - General Family Practice 07/19/22 documented as of this encounter
--- OUTSIDE RECORDS SUMMARY | 2024-11-12 12:15 | XMS_ITS | Encounter Summary ---
Author Organization [facility] Address [address] [place] [address] Care Team Providers Care Clinic Md Associate Name Role Phone Eren Wade MD Primary Care Provider [phone] Encounter Details Date Type Department Care Team (Latest Contact Info) Description 11/19/2005 Outpatient Historical [facility] Dolly Mcfadden DO [address] [facility] [address] [place] [id number] Abnormality in Heart Rate/Rhythm, Antepartum (Primary Dx) Social History Tobacco Use Types Packs/Day Years Used Date Smoking Tobacco: Never Assessed Comments Unknown Sex and Gender Information Value Date Recorded Sex Assigned at Not on file 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 [address] PCP - General Family Practice 07/19/22 documented as of this encounter
[2024-11-12 13:06] LABS: Syphilis IgG/IgM Antibody Non-Reactive (Nonreactive)
[2024-11-12 13:10] LABS: Hepatitis B Surface Antigen Negative (Negative)
[2024-11-12 13:15] LABS: HAV RESULT Negative (Negative); Hepatitis B Core IgM Result Negative (Negative)
[2024-11-13 06:07] LABS: HSV 1 IgG, Type Spec Reactive (Non Reactive); HSV 2 IgG, Type Spec Reactive (Non Reactive)
== END 2024-11-12 11:50 | disposition home or self-care (01) ==
LOC: ANHLAB 11:50
PROVIDERS: Visit Provider Student in an Organized Health Care Education/Training Program
DX: Z20.2 Contact with and (suspected) exposure to infections with a predominantly sexual mode of transmission (principal)
CPT/HCPCS: 36415; 80074; 86593; 86695; 86696